=== PATIENT | female | born 1945 | race Caucasian/White ===

== ENCOUNTER 2024-06-02 12:23 | Outpatient (CLI) | payer MEDICARE, SELFPAY ==
--- NOTE | 2024-06-02 12:43 | PETR_ITS ---
PROCEDURE INFORMATION: Exam: PET/CT Skull Base to Mid-thigh Exam date and time: 06/02/2024 1:37 PM Age: 79 years old Clinical indication: Abnormal findings; Lytic lesion of bone on xray LABS AND CLINICAL REPORTS: Glucose: 111 mg/dl Treatment strategy for malignancy (PET staging): Initial Staging (PI) TECHNIQUE: Imaging protocol: Following at least four-hour fasting and following the injection of radiopharmaceutical, low dose CT images were obtained. Then, PET images were obtained. Attenuation corrected images were constructed using the CT scan. Fused images of PET and CT were reviewed. The standardized uptake values (SUV) reported below are maximum values within a region of interest, expressed in gm/ml. Exam includes orbital meatal line to mid-thigh. Radiopharmaceutical: 10.52 mCi F-18 FDG (Fluorodeoxyglucose), IV. Time of imaging post radiopharmaceutical administration: 48 minutes Injection site: Right antecubital COMPARISON: No relevant prior studies available. FINDINGS: Brain: Visualized brain has normal physiologic uptake. Pharynx: No abnormal uptake. Larynx: No abnormal uptake. Thyroid: Enlarged right thyroid gland with heterogeneous nodule measuring up to 4 cm showing low-level FDG uptake with SUV max 3.8. Lungs, pleura and trachea: Dependent and basilar predominant subpleural reticulation may represent atelectasis or fibrotic change. Mild emphysematous change. 6 mm right lower lobe superior segment nodule adjacent to subpleural reticulation on axial image 254 of series 202 with SUV max 4.5. Right lower lobe calcified granuloma. Heart: Normal physiologic uptake. Coronary arteries: Moderate coronary artery calcification. Mediastinal space: No abnormal uptake. Liver: No abnormal uptake. Photopenic fluid density simple left hepatic cyst and subcentimeter hypodensity too small to characterize. Right lobe calcified granuloma. Gallbladder and biliary ducts: No abnormal uptake. Cholelithiasis. Pancreas: No abnormal uptake. Spleen: No abnormal uptake. Calcified granuloma. Adrenal glands: No abnormal uptake. Kidneys and ureters: Normal physiologic uptake. Photopenic fluid density right renal cysts. Bilateral nonobstructive nephrolithiasis. Stomach and bowel: No abnormal uptake. Colonic diverticulosis without findings of diverticulitis. Vasculature: No abnormal uptake. Moderate systemic atherosclerotic calcification without aortic aneurysm. Lymph nodes: Calcified right hilar lymph nodes in keeping with sequela of old granulomatous disease. Focal right hilar FDG uptake shows SUV max of 6.0 on axial image 242 of series 202 that appears to be associated with calcific density and may arise from lymph node or possibly pulmonary artery. Skeleton: Medial right clavicle destruction with surrounding FDG avid mass measuring 6.0 x 5.1 cm on axial image 266 of series 202 shows SUV max 46.2. FDG uptake extends laterally along the right clavicle to the mid/distal portion. Degenerative changes along the axial and proximal appendicular skeletal system. Soft tissues: Superficial left breast soft tissue density nodule measuring 8 mm on axial image 212 of series 202 shows SUV max 3.9. PET/PET skull to thigh INIT [id number] IMPRESSION: 1. FDG avid destructive medial right clavicle mass highly suspicious for malignancy. Abnormal FDG uptake extends laterally along the right clavicular shaft. 2. 8 mm superficial left breast nodule with FDG uptake. Recommend diagnostic mammogram/ultrasound. 3. Focal right hilar FDG uptake is likely associated with partially calcified lymph node, difficult to entirely exclude pulmonary artery. Recommend correlation with chest CTA. 4. 6 mm posterior right lower lobe superior segment nodule may be inflammatory or neoplastic given SUV max 4.5. This is adjacent to mild subpleural reticulation and paraseptal emphysematous change. 5. Enlarged right thyroid gland with mildly metabolic 4 cm right thyroid nodule. Recommend nonemergent thyroid ultrasound. 6. Additional chronic and incidental findings as above, to include atherosclerosis, colonic diverticulosis, cholelithiasis, and bilateral nonobstructive nephrolithiasis.
== END 2024-06-02 12:24 | disposition home or self-care (01) ==
PROVIDERS: Visit Provider Family Medicine
DX: M89.9 Disorder of bone, unspecified (principal); E04.1 Nontoxic single thyroid nodule; R91.1 Solitary pulmonary nodule; I25.84 Coronary atherosclerosis due to calcified coronary lesion; Q44.6 Cystic disease of liver; K75.3 Granulomatous hepatitis, not elsewhere classified; K80.20 Calculus of gallbladder without cholecystitis without obstruction; D73.89 Other diseases of spleen; I70.0 Atherosclerosis of aorta; R93.89 Abnormal findings on diagnostic imaging of other specified body structures; N63.20 Unspecified lump in the left breast, unspecified quadrant
CPT/HCPCS: 78815; A9552

== ENCOUNTER 2024-07-25 11:02 | Oncology outpatient (recurring) (ONCR) | payer MEDICARE, SELFPAY ==
--- NOTE | 2024-07-04 08:45 | N.ONRAD NP_ITS ---
Radiation Oncology New Patient Visit Patient: Anselmo Koch MR#: [id number] : 1945 Age: 79 Sex: Female Dictated by: Dr. Bernadette Guzman Date of Service: 07/03/2024 Referring Physician(s) : Dr. Vernon Diagnosis: Carcinoma of undetermined primary Radiotherapy to date: Summary > No prior radiation therapy. Chief Complaint / History of Present Illness: Patient is 79-year-old lady who said she initially noted a knot over the clavicle on the left side but that it migrated to the right. Apparently is increased in size substantially over the last several months. She has had a biopsy done on 06/16/2024 which just showed that it was carcinoma and additional studies are currently pending. On her PET scan she has a 8 mm mass in the left breast and a nodule in the lung which is partially calcified as well as a 4 cm mass in the thyroid. She is here today to discuss palliative radiation to the clavicular mass which appears to originate in the bone and expanded outward. She currently has pain in the clavicular area. But it does radiate across her shoulder and up the back of her neck and head. She also feels like she cannot use her arm as well either. She declares she is now left-handed instead of right-handed. Current Medications: carvedilol, hydroxyzine, spironolactpne, torsemide Allergies: No known allergies Medical History: No history of collagen vascular disease. No previous radiation therapy. CHF, kidney stones, mitral valve prolapse, prior smoking history and alcohol history Surgical History: History of a cyst removed from the right breast and a mitral valve replaced Family History: Noncontributory Social History: She currently lives alone. Her son does live close current Complaints / Review of Systems: . Her main complaints today have to do with the pain in the clavicular area which radiates up to her skull as well as down to her arm Vital Signs: Performed on 07/03/2024 3:55 PM BMI - 24.856 kg/m2 (high), Height - 66 in, Weight - 154 lbs, Temperature - 98.7 f, Pulse - 87 /min, Respiration - 17 /min, O2 Sat - 97 %, Pain - 4, Fatigue - 0 and BP - 127/ 68 mm(hg). Physical Exam: General: Patient is in no apparent distress. She is companied by her son. HEENT: Normocephalic atraumatic. Pupils are equal, sclera clear, extraocular muscles intact Neck: She has an obvious mass over the right clavicle. It is approximately 12 x 8 cm in size. Is warm to touch and erythematous as well. Pulmonary: Respiratory rate is regular nonlabored Cardiovascular: Regular rate and rhythm Abdomen: Mildly protuberant android pattern Extremities: She does not appear to have any lymphedema in the upper extremities Neurological: Alert and orient x 3. 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 We reviewed the role of radiation in any type of carcinoma. We discussed the role of radiation and bone metastasis. I reviewed with her the simulation process and the daily treatment regiment. We discussed the risks and side effects both acute and long-term. We talked about the possible etiology. She declares that she smoke like a chimney for many years. We talked about how more than likely is going to be either lung origin or breast origin. This mass showed up on the PET scan most likely due to the soft tissue component. We will go ahead and order a bone scan to further evaluate the rest of her skeletal system as bone lesions sometimes do not show up on PET scans. She had no additional questions. She will return based on her son scheduled to undergo simulation and will begin her treatments hopefully this week pending her insurance approval. Initial plan is for 2-week course of treatment. If additional therapy is needed to continue to strengthen mass we can do that subsequently Signed by: 07/04/2024 8:44:10 AM <<Signature on File>> Time spent with patient:45 CPT Code: CPT Code:
--- NOTE | 2024-07-18 11:40 | ONCRAD TMN_ITS ---
Radiation Oncology Weekly Treatment Management Patient: Anselmo Koch MR#: [id number] : 1945 Attending Physician: Dr. Bernadette Guzman Date of Service: 07/18/2024 Fractions: 3 out of 10 Referring Physician(s) : Diagnosis: C79.51 - Secondary malignant neoplasm of bone, Diagnosed 07/04/2024 (Active) Radiotherapy to date: Course: R clavicle, Treatment Site: RT [id number], Ref. ID: [id number], Energy: 15X/6X, Dose/Fx (cGy): 300, #Fx: 3 / 10, Dose Correction (cGy): 0, Total Dose Delivered (cGy): 900, Start Date: 07/07/2024, Elapsed Days: 11 Reason for visit: The patient is being seen today as part of their regularly scheduled weekly on treatment visits to assess for acute toxicities from radiotherapy. Review of Systems: No new complaints. Vital Signs: Performed on 07/18/2024 11:23 AM BMI - 24.63 kg/m2 (high), Height - 66 in, Weight - 152.6 lbs, Temperature - 97.7 f, Pulse - 73 /min, Respiration - 16 /min, O2 Sat - 98 %, Pain - 0, Fatigue - 0 and BP - 129/ 64 mm(hg)(/low). Physical Exam: On exam the mass appears to be slightly smaller. It is less erythematous. Imaging: Radiation therapy imaging related to accurate target localization (i.e. KV, MV and CBCT) was reviewed. Appropriate changes, if any, were made to ensure treatment accuracy. Plan: Will continue with her treatments as planned Signed by: Dr. Bernadette Guzman 07/18/2024 11:39:47 AM
--- NOTE | 2024-07-25 11:42 | ONCRAD TMN_ITS ---
Radiation Oncology Weekly Treatment Management Patient: Zee Parisi MR#: [id number] : 1945> Attending Physician: Dr. Bernadette Guzman Date of Service: 07/25/2024 Fractions: 7 out of 10 Referring Physician(s) : Diagnosis: C79.51 - Secondary malignant neoplasm of bone, Diagnosed 07/04/2024 (Active) Radiotherapy to date: Course: R clavicle, Treatment Site: RT [id number], Ref. ID: [id number], Energy: 15X/6X, Dose/Fx (cGy): 300, #Fx: 7 / 10, Dose Correction (cGy): 0, Total Dose Delivered (cGy): 2,100, Start Date: 07/07/2024, Elapsed Days: 18 Reason for visit: The patient is being seen today as part of their regularly scheduled weekly on treatment visits to assess for acute toxicities from radiotherapy. Review of Systems: Patient feels like the pain has decreased substantially Vital Signs: Performed on 07/25/2024 11:15 AM BMI - 25.018 kg/m2 (high), Height - 66 in, Weight - 155 lbs, Temperature - 97.1 f, Pulse - 71 /min, Respiration - 18 /min, O2 Sat - 97 %, Pain - 0, Fatigue - 0 and BP - 102/ 67 mm(hg). Physical Exam: On exam the mass is flattened out quite nicely. The skin is dry and somewhat pruritic over the top. Imaging: Radiation therapy imaging related to accurate target localization (i.e. KV, MV and CBCT) was reviewed. Appropriate changes, if any, were made to ensure treatment accuracy. Plan: I have asked her to use some cortisone cream on this area. Will otherwise continue with her treatments as planned Signed by: Dr. Bernadette Guzman 07/25/2024 11:41:57 AM
== END 2024-07-25 23:59 | disposition home or self-care (01) ==
PROVIDERS: Visit Provider Radiology Radiation Oncology
DX: Z51.0 Encounter for antineoplastic radiation therapy (principal); C79.51 Secondary malignant neoplasm of bone; C80.1 Malignant (primary) neoplasm, unspecified
CPT/HCPCS: 77290; 77295; 77300; 77334; 77386; 77387; 77412; 99024; 99205; 99214

== ENCOUNTER 2024-07-27 09:52 | Inpatient (IN) | payer MEDICARE, SELFPAY ==
[2024-07-27] VITALS (15 sets, daily range): BP systolic 99–148; BP diastolic 35–74; PULSE 43–86; RESP 12–21; TEMP 36.5–36.8; O2SAT 94–99
--- NOTE | 2024-07-27 09:56 | CT_ITS ---
WS: [id number] CT CERVICAL TRAUMA TECHNIQUE: Noncontrast CT of the cervical spine with coronal and sagittal reformatted images. CLINICAL INFORMATION: trauma COMPARISON: None. DLP: 1381.[address] scans at [facility] use at least one of these dose optimization techniques: automated e xposure control; mA and/or kV adjustment per patient size (includes targeted exams where dose is matc hed to clinical indication); or iterative reconstruction. FINDINGS: Straightening of the normal cervical lordosis. Mild cervical curve. Moderate spondylitic changes. Dis c osteophyte complexes at C5-C6 and C6-C7. Slight anterolisthesis C4 on C5. Normal craniocervical stefano ction. Normal C1-C2 articulation. Dens is normal in appearance. Normal occipital condyles. No high-gr bertin spinal canal narrowing. Normal C1 ring. No evidence of acute fracture or dislocation. Partially visualized large RIGHT thyroid goiter. Partially visualized soft tissue mass at the RIGHT c lavicle previously described on the PET/CT Mastoids air cells are well aerated. CT/CT cervical spin wo con* [id number] IMPRESSION: 1. No evidence of acute fracture or dislocation. 2. Partially visualized large RIGHT thyroid goiter with RIGHT to LEFT mass eff ect on the trachea. This could be followed up with ultrasound thyroid. This is unchanged since the recent PET/CT 06/02/2024
--- NOTE | 2024-07-27 09:56 | CT_ITS ---
WS: [id number] CT HEAD TECHNIQUE: Noncontrast CT of the head obtained from the skullbase to the vertex. CLINICAL INFORMATION: trauma COMPARISON: None. DLP: 1381.[address] scans at [facility] use at least one of these dose optimization techniques: automated e xposure control; mA and/or kV adjustment per patient size (includes targeted exams where dose is matc hed to clinical indication); or iterative reconstruction. FINDINGS: No evidence of intracranial hemorrhage or mass effect. Ventricular system and basal cisterns are hutchinson nt. Moderate small vessel changes with moderate parenchymal volume loss worse in the frontal lobes.. Chronic lacunar infarcts in the LEFT basal ganglia. Vascular calcification. Arachnoid cyst LEFT middl e cranial fossa with bony hyperostosis.. Opacification of the posterior ethmoid air cells and sphenoid sinuses. Soft tissue edema LEFT parieta l scalp. Normal underlying bony calvarium. CT/CT head wo con* [id number] IMPRESSION: 1. No evidence of intracranial hemorrhage or mass effect. 2. Moderate small vessel changes. Moderate parenchymal volume loss worse in th e frontal lobes. 3. Arachnoid cyst LEFT middle cranial fossa. 4. Sphenoid and posterior ethmoid sinusitis with inspissated secretions. 5. No acute intracranial findings.
--- NOTE | 2024-07-27 10:14 | ECG_ITS ---
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 Measurements Intervals [place] Rate: 62 P: 0 PA: 0 QRS: -26 QRSD: 89 T: 28 QT: 412 QTc: 421 Interpretive Statements SINUS RHYTHM LOW QRS VOLTAGE IN PRECORDIAL LEADS [QRS DEFLECTION < 1.0 mV IN CHEST LEADS] POSSIBLE ANTERIOR MYOCARDIAL INFARCTION , PROBABLY OLD [30 ms Q WAVE IN V3/V4, OR R < 0.2 mV IN V4] INFERIOR MYOCARDIAL INFARCTION , PROBABLY OLD [40+ ms Q WAVE AND/OR ST/T ABNORMALITY IN II/aVF] No previous ECG available for comparison Electronically Signed On 07-27-2024 12:20:48 CHIEF GAUGER by Flako Holman M.D. [email or web address]
--- NOTE | 2024-07-27 10:34 | ED_ITS ---
HPI - Head Injury 2 General: Chief complaint: Head Injury Stated complaint: rapid Time Seen by Provider: 07/27/24 09:53 History of Present Illness: 79-year-old female with a history of a p haryngeal cancer was at the oncology center checking in to be seen got lightheaded dizzy and fell backwards and hit her head she did have loss consciousness she has been vomiting since she has had other episodes where she nearly passed out and has had episodes of vomiting in the past she states this is much more intense. She is not on any anticoagulants. She denies any other injury or any other pain no abdominal or chest pain. Denies neck pain. Associated symptoms: Deny neck pain Related Data Home Medications Medication Instructions Recorded Confirmed carvedilol 25 mg tablet 25 mg PO BID 07/03/24 07/27/24 hydroxyzine HCl 10 mg tablet 10 mg PO TID PRN Anxiety 07/03/24 07/27/24 spironolactone 25 mg tablet 25 mg PO DAILY 07/03/24 07/27/24 torsemide 20 mg tablet 20 mg PO DAILY PRN Edema 07/03/24 07/27/24 Previous Rx's Medication Instructions Recorded lidocaine-prilocaine 2.5 %-2.5 % 1 applic topical .COMPLEX #30 grams 07/03/24 topical cream alectinib 150 mg capsule 600 mg (4 x 150 mg) PO BID #60 caps 07/24/24 Allergies Allergy/AdvReac Type Severity Reaction Status Date / Time No Known Allergies Allergy Verified 07/24/24 13:41 Review of Systems 2 Const: Denies: fever(s) or chills Card: Denies: chest pain Resp: Denies: dyspnea GI: Denies: abdominal pain : Denies: dysuria, urinary frequency or urinary urgency Musc: Denies: neck pain or back pain Skin/Breast: Denies: rash PFSH ED 2 PFSH: Social History Smoking and tobacco/nicotine status: former use of tobacco/nicotine Physical Exam 2 Const: GENERAL APPEARANCE: cooperative ORIENTATION/CONSCIOUSNESS: Yes awake, Yes oriented to person, Yes oriented to place and Yes oriented to time HENMT: COMMON NORMALS: normocephalic, atraumatic and hearing grossly normal bilaterally HEAD & SCALP: normocephalic and atraumatic Resp: COMMON NORMALS: normal respiratory effort, No retractions, No use of accessory muscles and clear to auscultation bilaterally AUSCULTATION: clear to auscultation bilaterally Cardio: COMMON NORMALS: regular rate, regular rhythm and No murmurs present (Cardio) RATE: regular rate RHYTHM: regular rhythm GI: COMMON NORMALS: Soft to palpation and No hepatosplenomegaly present A USCULTATION: Yes normoactive bowel sounds PALPATION: Yes Soft to palpation, No Tenderness to palpation present (GI), No Guarding due to palpation present (GI) and Yes No hepatosplenomegaly present Extremity: COMMON NORMALS: normal to inspection, capillary refill normal, no clubbing, cyanosis or edema, no calf tenderness and no pedal edema Neuro: SENSORIUM/ORIENTATION: Yes oriented to person, Yes oriented to place and Yes oriented to time Skin: COMMON NORMALS: no rashes or lesions noted GENERAL SKIN EXAM: no rashes or lesions noted Course 2 Vital Signs: Vital signs: Vital Signs Temperature 98.2 F 07/27/24 10:16 Pulse Rate 56 L 07/27/24 11:50 Respiratory Rate 18 07/27/24 10:16 Blood Pressure 148/58 07/27/24 11:50 Pulse Oximetry 94 07/27/24 11:50 Oxygen Delivery Me thod Room Air 07/27/24 10:16 MDM - Head Injury Medcial Decision Making Patient initially very nauseous she denied chest pain on arrival. However serial cardiac enzymes showed a positive delta. EKG does not show any acute changes she has no history of coronary artery disease. She had very lightheaded and dizzy when he tried to do orthostatics. Will go ahead and admit it is discussed with cardiology as well as hospitalist patient started on heparin. Medical Records I reviewed the patient's medical records. Lab Data I reviewed the patient's lab results. 07/27/24 10:29 07/27/24 10:29 Radiology Impressions Cervical Spine CT 07/27/24 09:56 IMPRESSION: 1. No evidence of acute fracture or dislocation. 2. Partially visualized large RIGHT thyroid goiter with RIGHT to LEFT mass effect on the trachea. This could be followed up with ultrasound thyroid. This is unchanged since the recent PET/CT 06/02/[address] 07/27/24 09:56 IMPRESSION: 1. No evidence of intracranial hemorrhage or mass effect. 2. Moderate small vessel changes. Moderate parenchymal volume loss worse in the frontal lobes. 3. Arachnoid cyst LEFT middle cranial fossa. 4. Sphenoid and posterior ethmoid sinusitis with inspissated secretions. 5. No acute intracranial findings. Laboratory Results WBC 6.20 10^3/uL (3.29-11.43) 07/27/24 10:29 RBC 4.37 10^6/uL (3.85-5.65) 07/27/24 10:29 Hgb 12.30 g/dL (11.27-16.99) 07/27/24 10:29 Hct 40.3 % (36-47) 07/27/24 10:29 MCV 92.2 fl (85-98) 07/27/24 10:29 MCH 28.1 pg (27-33) 07/27/24 10:29 MCHC 30.5 g/dL (30-55) 07/27/24 10:29 RDW 13.4 % (12.1-15.1) 07/27/24 10:29 Plt Count 250 10^3/cmm (157-399) 07/27/24 10:29 MPV 9.5 fL (7.4-10.4) 07/27/24 10:29 Neut % (Auto) 71.6 % 07/27/24 10:29 Lymph % (Auto) 11.3 % 07/27/24 10:29 [place] % (Auto) 11.3 % 07/27/24 10:29 Eos % (Auto) 3.5 % 07/27/24 10:29 Baso % (Auto) 1.8 % 07/27/24 10:29 Neut # (Auto) 4.44 10^3/uL (1.8-7.7) 07/27/24 10:29 Lymph # (Auto) 0.7 10^3/uL (0.8-4.8) L 07/27/24 10:29 [place] # (Auto) 0.7 10^3/uL (0.2-0.9) 07/27/24 10:29 Eos # (Auto) 0.2 10^3/uL (0.0-0.8) 07/27/24 10:29 Baso # (Auto) 0.1 10^3/uL (0.0-0.1) 07/27/24 10:29 Nucleated RBC % (auto) 0 % 07/27/24 10: Nucleated RBCs # 0.0 /100WBC 07/27/24 10:29 Sodium 138 mmol/L (136-145) 07/27/24 10:29 Potassium 4.1 mmol/L (3.5-5.1) 07/27/24 10:29 Chloride 108 mmol/L (98-107) H 07/27/24 10:29 Carbon Dioxide 21 mmol/L (22-29) L 07/27/24 10:29 Anion Gap 13.1 (5-19) 07/27/24 10:29 BUN 16 mg/dL (8-23) 07/27/24 10:29 Creatinine 0.9 mg/dL (0.5-0.9) 07/27/24 10: GFR Calculation Not Reportable 07/27/24 10:29 Glucose 142 mg/dL (65-115) H 07/27/24 10:29 Calculated Osmolality 290 mOsm/kg (285-295) 07/27/24 10:29 Calcium 8.9 mg/dL (8.5-10.5) 07/27/24 10:29 Total Bilirubin 0.4 mg/dL (0.15-1.2) 07/27/24 10:29 AST 12 U/L (0-32) 07/27/24 10:29 ALT < 5 U/L (0-33) 07/27/24 10:29 Alkaline Phosphatase 95 U/L (35-105) 07/27/24 10:29 Troponin T Baseline 23 ng/L (0-10) H 07/27/24 10:29 Troponin T 120 Minute 38.83 ng/L (0-10) H 07/27/24 13:13 Delta Troponin T 15.83 ABS# (0-10) H* 07/27/24 13:13 Total Protein 6.2 g/dL (6.6-8.7) L 07/27/24 10:29 Albumin 3.3 g/dL (3.5-5.2) L 07/27/24 10:29 Globulin 2.9 g/dL (1.3-4.6) 07/27/24 10:29 All radiology interpretation(s) finalized by discharge Discharge Plan Discharge Patient Disposition: Admitted As Inpatient Admit Provider: Daylin Hagen Clinical Impression: Non-ST elevation [place] (NSTEMI), Lung cancer metastatic to bone, Syncope Condition: Stable Coding Level of Care Code ED Field Service Coordinator for Niranjan Duran
[2024-07-27 10:41] LABS: Basophils # 0.1 10^3/uL (0.0-0.1); Basophils % 1.8 %; Eosinophils # 0.2 10^3/uL (0.0-0.8); Eosinophils % 3.5 %; Hematocrit 40.3 % (36-47); Lymphocytes # 0.7 10^3/uL (0.8-4.8); Lymphocytes % 11.3 %; Mean Corpuscular HGB Conc 30.5 g/dL (30-55); Mean Corpuscular Hemoglobin 28.1 pg (27-33); Mean Corpuscular Volume 92.2 fl (85-98); Mean Platelet Volume 9.5 fL (7.4-10.4); Monocytes # 0.7 10^3/uL (0.2-0.9); Monocytes % 11.3 %; Neutrophils # 4.44 10^3/uL (1.8-7.7); Neutrophils % 71.6 %; Nucleated Red Blood Cells % 0 %; Platelet Count 250 10^3/cmm (157-399); Red Blood Count 4.37 10^6/uL (3.85-5.65); Red Cell Distribution Width 13.4 % (12.1-15.1)
[2024-07-27] MEDS: ondansetron 2 mg/ML SDV 2 mL 8 MG IVP (10:53)
[2024-07-27 10:58] LABS: Alanine Aminotransferase < 5 U/L (0-33); Albumin Level 3.3 g/dL (3.5-5.2); Alkaline Phosphatase 95 U/L (35-105); Anion Gap 13.1 (5-19); Aspartate Amino Transferase 12 U/L (0-32); Blood Urea Nitrogen 16 mg/dL (8-23); Calcium 8.9 mg/dL (8.5-10.5); Carbon Dioxide 21 mmol/L (22-29); Chloride 108 mmol/L (98-107); Globulin 2.9 g/dL (1.3-4.6); Glucose 142 mg/dL (65-115); Osmolality Calculated 290 mOsm/kg (285-295); Potassium 4.1 mmol/L (3.5-5.1); Sodium 138 mmol/L (136-145); Total Bilirubin 0.4 mg/dL (0.15-1.2); Total Protein 6.2 g/dL (6.6-8.7)
[2024-07-27 11:57] LABS: Troponin(5th) Baseline 23 ng/L (0-10)
[2024-07-27] MEDS: sodium chloride 0.9% 1,000 ML 999 ML IV (12:12)
--- NOTE | 2024-07-27 13:23 | ECG_ITS ---
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 Measurements Intervals [place] Rate: 54 P: 115 AL: 207 QRS: -32 QRSD: 82 T: 20 QT: 428 QTc: 409 Interpretive Statements SINUS BRADYCARDIA WITH SINUS ARRHYTHMIA LOW QRS VOLTAGE IN PRECORDIAL LEADS [QRS DEFLECTION < 1.0 mV IN CHEST LEADS] POSSIBLE ANTERIOR MYOCARDIAL INFARCTION , PROBABLY OLD [30 ms Q WAVE IN V3/V4, OR R < 0.2 mV IN V4] INFERIOR MYOCARDIAL INFARCTION , PROBABLY OLD [40+ ms Q WAVE AND/OR ST/T ABNORMALITY IN II/aVF] Compared to ECG 07/27/2024 10:14:50 Sinus rhythm no longer present Myocardial infarct finding still present Electronically Signed On 07-27-2024 16:09:21 WRIST CLOSER by Flako Holman M.D. [email or web address]
[2024-07-27 13:40] LABS: Troponin 5 2HR 38.83 ng/L (0-10)
[2024-07-27 13:46] LABS: Troponin 5 2HR Delta 15.83 ABS# (0-10)
--- NOTE | 2024-07-27 14:43 | PC.NURSE ---
Dr. Steiner wanted new [employer] vitals. This tech completed task. Laying blood pressure- 97/44 Sitting blood pressure- 108/51 Standing blood pressure- 104/59 Laying pulse- 75 Sitting pulse- 81 Standing pulse- 86
--- NOTE | 2024-07-27 14:44 | P.HP_ITS ---
Providers/Chief Complaint 2 Admitting Physician: Daylin Hagen MD Chief Complaint: rapid History of Present Illness Anselmo Koch is a 79 year old female With past medical history of hypertension, right clavicular mass with biopsy-proven adenocarcinoma primary unknown but likely to be nonsmall cell lung cancer who has been following up with oncology and receiving radiation treatments. Patient went for her regular radiation treatment and has been standing at the desk speaking to the medical records receptionist she had a syncopal episode and found herself on the floor. There were no warning signs prior to the syncope. Did not experience any lightheadedness nausea vomiting or flashing lights. Son accompanies her today. Son reports that patient has had a history of EF 20% quite a few years ago and follows with a youth development professional in [place] however never had a coronary angiogram done for unknown reasons. Patient denies nausea vomiting diarrhea chest pain shortness of breath or any other symptoms at this time. She was brought to the ER as a rapid response for further evaluation. Blood pressure 148/58, respirate 18, pulse 56, temperature 98.2 saturating 94% on room air. Orthostatic vitals were attempted however unable to do them since she was lightheaded and dizzy upon presentation to ER. Troponins elevated with delta of 15.8. Started on NSTEMI protocol. Cardiology consulted from the ER. Hospitalist asked to admit the patient. Medications/Allergies Home Medications Medication Instructions Recorded Confirmed Last Taken Type carvedilol 25 mg tablet 25 mg PO BID 07/03/24 07/27/24 07/26/24 History hydroxyzine HCl 10 mg tablet 10 mg PO TID PRN Anxiety 07/03/24 07/27/24 Unknown History lidocaine-prilocaine 2.5 %-2.5 % 1 applic topical .COMPLEX #30 grams 07/03/24 07/27/24 Unknown Rx topical cream spironolactone 25 mg tablet 25 mg PO DAILY 07/03/24 07/27/24 07/26/24 History torsemide 20 mg tablet 20 mg PO DAILY PRN Edema 07/03/24 07/27/24 Unknown History alectinib 150 mg capsule 600 mg (4 x 150 mg) PO BID #60 caps 07/24/24 07/27/24 Unknown Rx aspirin 81 mg capsule 81 mg PO DAILY 07/27/24 07/27/24 07/26/24 History Allergies Allergy/AdvReac Type Severity Reaction Status Date / Time No Known Allergies Allergy Verified 07/24/24 13:41 PFSH Acute 2 PFSH: Social History Smoking and tobacco/nicotine status: former use of tobacco/nicotine Vitals/I&O/Wt Last Vital Signs Temp 98.2 F 07/27/24 10:16 Pulse 56 L 07/27/24 11:50 Resp 18 07/27/24 10:16 BP 148/58 07/27/24 11:50 Pulse Ox 94 07/27/24 11:50 O2 Del Method Room Air 07/27/24 10:16 Weight last 48 hrs Weight 70.307 kg Physical Exam 2 Narrative: General: Alert oriented x3, patient seen laying in bed appearing comfortable HEENT: Normocephalic, atraumatic, EOMI, Cardio: Regular rate rhythm, normal S1-S2, Respiratory: Good bilateral air entry, no wheezes no rhonchi appreciated GI: Abdomen soft, nontender, nondistended, bowel sounds + Behavior: Appropriate and cooperative Extremities: trace edema b/l Data 07/28/24 09:50 07/28/24 09:50 A&P Assessment and plan (1) Benign hypertension: (2) Non-ST elevation AL (NSTEMI): (3) Elevated troponin: (4) Abnormal EKG: (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: (6) Cancer with unknown primary site: (7) Syncope: Qualifiers: Syncope type: unspecified Qualified Code(s): R55 - Syncope and collapse Plan #NSTEMI #HTN #Non small cell cancer/adenocarcinoma/right clavicle mass #Syncopal episode - place on telemetry - check echo - request records from [facility] cardiology - [facility] at 6 hours positive 15.8 - place on heparin drip - place on aspirin, plavix, atorvastatin - avoid BB at this time - hold home antihypertensive at this time - cardiology consult - f/u with oncology [place] full code dvt ppx: heparin ggt Attestations 2 Medical Necessity Statement*: NSTEMI Diagnoses Benign hypertension I10 Non-ST elevation AL (NSTEMI) I21.4 Elevated troponin R79.89 Abnormal EKG R94.31 Lung cancer metastatic to bone C34.90; C79.51 Cancer with unknown primary site C80.1 Syncope, unspecified syncope type R55 Syncope type: unspecified
--- NOTE | 2024-07-27 14:49 | USCV_ITS ---
Anselmo Koch Age: 79 Gender: F : 1945 Exam Date: 07/27/2024 15:17 Ordering Phys: Daylin Hagen MD Technologist: LOU Exam Location[place] [facility] [place]: NSTEMI BP: 112 / 35 HR: 57 Rhythm: Sinus Technical Quality: Adequate MEASUREMENTS (Male / Female) Normal Values 2D ECHO LV Diastolic Diameter PLAX 5.2 cm 4.2 - 5.9 / 3.9 - 5.3 cm IVS Diastolic Thickness 1.2 cm 0.6 - 1.0 / 0.6 - 0.9 cm IVS Systolic Thickness 1.8 cm LVPW Diastolic Thickness 1.8 cm 0.6 - 1.0 / 0.6 - 0.9 cm LVPW Systolic Thickness 2.7 cm LVOT Diameter 2.0 cm LV Ejection Fraction 2D Teich 61.5 % LV Ejection Fraction MOD 4C 60.5 % LV Ejection Fraction MOD 2C 54.5 % LV Ejection Fraction 2C AL 54.6 % LA Diameter 2.9 cm RA Systolic Volume 4C AL 10.0 ml RA Systolic Volume 4C MOD 9.6 ml LA Sys Volume AL 32.7 cm cubed LA Sys Volume Index AL 18.0 cm cubed/m squared Aorta at Sinotubular Diameter 2.3 cm M-MODE LA Ao Ratio MM 1.1 AV Cusp Separation MM 1.9 cm DOPPLER AV Peak Velocity 169.0 cm/s LVOT Peak Velocity 103.0 cm/s AV Area Cont Eq vti 2.3 cm squared AV Area Cont Eq pk 1.9 cm squared MV Peak Velocity 133.0 cm/s MV Area PHT 1.5 cm squared Mitral E to A Ratio 0.7 TR Peak Velocity 164.0 cm/s TR Peak Gradient 10.8 mmHg TR Mean Velocity 136.0 cm/s TR Mean Gradient 7.9 mmHg TR Velocity Time Integral 51.5 cm TV Peak E Velocity 67.0 cm/s PV Peak Velocity 80.0 cm/s RV Ejection Time 0.3 s FINDINGS Left Ventricle Normal left ventricular size with a borderline low ejection fraction of 50 to 55%.Mild to moderate left ventricular hypertrophy. Right Ventricle The right ventricle is normal in size and function. Right Atrium The right atrium is normal in size. Left Atrium Mildly increased left atrial size. Mitral Valve Mild mitral annular calcification. Aortic Valve Trace aortic valve regurgitation. Thickened aortic valve. Tricuspid Valve Trace tricuspid valve regurgitation. Pulmonic Valve No gross abnormalities noted Pericardium Normal pericardium without effusion. Aorta Normal ascending aorta dimension. IVC Inferior vena cava not visualized. CONCLUSIONS Normal left ventricular size with a borderline low ejection fraction of 50 to 55%.Mild to moderate left ventricular hypertrophy. Mildly increased left atrial size. Mild mitral annular calcification. Thickened aortic valve. Trace aortic valve regurgitation. Trace tricuspid valve regurgitation. There is no pericardial effusion. No similar previous studies are available for comparison Dr Katlyn Pack MD [facility] (Electronically Signed) Final Date: 27 July 2024 23:01 S
[2024-07-27] MEDS: heparin 5,000 unit/mL INJ 1 mL IVP (15:02)
[2024-07-27] MEDS: heparin drip 25,000 UNIT/500 ML PREMIX 20 UNIT IV (15:04)
[2024-07-27] MEDS: aspirin 81 mg Chew Tablet 324 MG PO (15:05)
[2024-07-27 15:53] LABS: NT Pro B Type Natriuretic Pept 275 pg/mL (0-450); Procalcitonin 0.06 ng/mL (0-0.5); Thyroid Stimulating Hormone 0.44 uIU/mL (0.27-4.20)
[2024-07-27 15:55] LABS: Estmated Average Glucose 114; Hemoglobin A1C 5.6 % (4.0-6.0)
[2024-07-27 16:05] LABS: Chol HDL Ratio 5.03 mg/dL (0.0-4.40); Cholesterol 191 mg/dL (0-200); HDL Cholesterol 38 mg/dL (60-100); LDL Cholesterol Calculated 124 mg/dL (50-129); LDL HDL Ratio 3.26 RATIO (0.00-3.22); Triglycerides 146 mg/dL (0-150); VLDL Cholestrol Calculation 29 mg/dL (0-30)
--- NOTE | 2024-07-27 16:19 | P.CONIM_ITS ---
Providers/Reason For Consult 2 Consulting Physician/Specialty*: RODNEY Pack MD /cardiology Reason for Consult*: Patient with syncope and elevated troponin T Requesting Physician: Dr. Hagen Attending Physician: Dalyin Hagen MD History of Present Illness History of Present Illness Anselmo Koch is a 79 year old female who is admitted to the hospital through the emergency room where she presented with an episode of syncope. Patient was found to have elevated troponin T. This patient apparently has a history of hypertension and cardiomyopathy. According to the son, she had LV ejection fraction around 20% many years ago. She was evaluated by cardiology in [place] at that time. If she refused to have an angiogram. Her LV ejection fraction gradually got improved. Recently she had a PET scan and was found to have significant coronary calcification and was advised for further cardiac workup. Then again the patient did not want to go through any angiogram or invasive procedures. She apparently was recently was found to have a mass in the right supraclavicular region. It is diagnosed as possible small cell CA from the lung. She is currently undergoing radiation treatment. She was at the [facility] center medical receptionist biller counter -, talking to the medical receptionist biller. All of a sudden, she passed out. She was brought to the emergency room. Her troponin SHEELA was found to be elevated with a delta of 15.83 at 2 hours. She denies any chest pain. Patient apparently became very forgetful recently and he is not able to recall many of the events of the past. The information obtained from her son, medical records and from the medical staff. Review of Systems 2 Narrative: CONSTITUTIONAL: No fever or chills. EYES: No blurring of vision or other visual disturbances lately. ENT: No hoarseness of voice, auditory disturbances or sore throat. CARDIOVASCULAR: As mentioned above. RESPIRATORY: Possible metastatic CA as mentioned above GASTROINTESTINAL: No hematemesis or melena. GENITOURINARY: No dysuria or hematuria. INTEGUMENTARY: No skin rashes or history of skin cancer. NEURO: Significant loss of memory in the recent past as per her son PSYCHIATRIC: No history of psychosis or major depression. HEMATOLOGIC: No bleeding disorders or significant anemia. ENDOCRINE: No history of polyuria or polydipsia. MUSCULOSKELETAL: No recent joint pain or swelling. ALLERGY/IMMUNOLOGY: As mentioned above. Medications/Allergies Home Medications Medication Instructions Recorded Confirmed Last Taken Type carvedilol 25 mg tablet 25 mg PO BID 07/03/24 07/27/24 07/26/24 History hydroxyzine HCl 10 mg tablet 10 mg PO TID PRN Anxiety 07/03/24 07/27/24 Unknown History lidocaine-prilocaine 2.5 %-2.5 % 1 applic topical .COMPLEX #30 grams 07/03/24 07/27/24 Unknown Rx topical cream spironolactone 25 mg tablet 25 mg PO DAILY 07/03/24 07/27/24 07/26/24 History torsemide 20 mg tablet 20 mg PO DAILY PRN Edema 07/03/24 07/27/24 Unknown History alectinib 150 mg capsule 600 mg (4 x 150 mg) PO BID #60 caps 07/24/24 07/27/24 Unknown Rx aspirin 81 mg capsule 81 mg PO DAILY 07/27/24 07/27/24 07/26/24 History Allergies Allergy/AdvReac Type Severity Reaction Status Date / Time No Known Allergies Allergy Verified 07/24/24 13:41 Current Medications Generic Name Dose Route Start Last Admin Trade Name Rufinoq PRN Reason Stop Dose Admin Aspirin 81 mg 07/28/24 09:00 07/28/24 09:23 Aspirin 81 Mg Ec Tablet PO 81 mg DAILY MANJINDER Administration Atorvastatin Calcium 80 mg 07/27/24 21:00 07/27/24 20:42 Atorvastatin 40 Mg Tablet PO Not Given BEDTIME MANJINDER Clopidogrel Bisulfate 75 mg 07/27/24 15:30 07/28/24 09:23 Clopidogrel 75 Mg Tablet PO 75 mg DAILY MANJINDER Administration Heparin Sodium/Sodium Chloride 25,000 unit in 500 mls @ 0 mls/hr 07/27/24 14:00 07/28/24 11:07 Heparin Drip IV 10.67 unit/kg/hr CONT MANJINDER 15 mls/hr Titration Protocol Per Protocol Sodium Chloride 1,000 mls @ 75 mls/hr 07/27/24 15:00 07/28/24 05:41 Sodium Chloride 0.9% IV 75 mls/hr .[id number] MANJINDER Administration Pantoprazole Sodium 40 mg 07/27/24 15:30 07/28/24 09:[address] 40 Mg Tablet PO 40 mg DAILY MANJINDER Administration PFSH Acute 2 PFSH: Social History Smoking and tobacco/nicotine status: former use of tobacco/nicotine Vitals/I&O/Wt Last Vital Signs Temp 97.8 F 07/28/24 11:44 Pulse 79 07/28/24 11:44 Resp 17 07/28/24 11:44 BP 111/41 07/28/24 11:44 Pulse Ox 94 07/28/24 04:36 O2 Del Method Room Air 07/28/24 04:36 07/27/24 07/28/24 07/28/24 22:59 06:59 14:59 Intake Total 1378 / 1378 1480 / 2858 166.2 / 166.2 Balance 1378 / 1378 1480 / 2858 166.2 / 166.2 Weight last 48 hrs Weight 161 lb 9.6 oz Weight 161 lb Weight 155 lb Physical Exam 2 Narrative: GENERAL: The patient is alert and oriented times three. Not in any acute distress. HEENT: No significant pallor, icterus or lymphadenopathy.Oral cavity: There are no mucous membrane lesions. NECK: Trachea appears to be central. No masses noted. No JVD or thyromegaly appreciated. Right supraclavicular mass RESPIRATORY: Chest is symmetrical. No intercostals muscle retraction or any accessory muscle activation. There is no chest wall tenderness. Breath sounds are heard bilaterally. No rales or rhonchi heard. No evidence of any consolidation. BREASTS: Deferred. HEART: The heart sounds are normal. No S3 or S4. No significant murmurs. No pericardial rub ABDOMEN: No vessel pulsations or distention. No tenderness. No organomegaly appreciated. Bowel sounds are normally heard. : Deferred. RECTAL: Deferred. LYMPHATIC: No lymphadenopathy noted in the neck. EXTREMITIES: There is status post and posterior pulses are palpable but weak bilaterally. MUSCULOSKELETAL: No acute joint deformities or swelling SKIN: There are no significant rashes or ecchymosis NEUROPSYCHIATRIC: The patient is alert and oriented x3. Appears to be in a good mood. No tremors or rigidity noted. Data 07/28/24 09:50 07/28/24 09:50 Other Labs: Laboratory Last Values WBC 5.82 10^3/uL (3.29-11.43) 07/28/24 09:50 RBC 3.68 10^6/uL (3.85-5.65) L 07/28/24 09:50 Hgb 10.50 g/dL (11.27-16.99) L 07/28/24 09:50 Hct 32.4 % (36-47) L 07/28/24 09:50 MCV 88.0 fl (85-98) 07/28/24 09:50 MCH 28.5 pg (27-33) 07/28/24 09:50 MCHC 32.4 g/dL (30-55) D 07/28/24 09:50 RDW 13.3 % (12.1-15.1) 07/28/24 09:50 Plt Count 220 10^3/cmm (157-399) 07/28/24 09:50 MPV 9.5 fL (7.4-10.4) 07/28/24 09:50 Neut % (Auto) 76.0 % 07/28/24 09:50 Lymph % (Auto) 9.6 % 07/28/24 09:50 Burnet % (Auto) 10.0 % 07/28/24 09:50 Eos % (Auto) 2.9 % 07/28/24 09:50 Baso % (Auto) 1.2 % 07/28/24 09:50 Neut # (Auto) 4.42 10^3/uL (1.8-7.7) 07/28/24 09:50 Lymph # (Auto) 0.6 10^3/uL (0.8-4.8) L 07/28/24 09:50 Burnet # (Auto) 0.6 10^3/uL (0.2-0.9) 07/28/24 09:50 Eos # (Auto) 0.2 10^3/uL (0.0-0.8) 07/28/24 09:50 Baso # (Auto) 0.1 10^3/uL (0.0-0.1) 07/28/24 09:50 Nucleated RBC % (auto) 0 % 07/28/24 09:50 Nucleated RBCs # 0.0 /100WBC 07/28/24 09:50 APTT 88.1 SECONDS (23.9-36.7) H 07/28/24 09:50 Sodium 141 mmol/L (136-145) 07/28/24 09:50 Potassium 3.7 mmol/L (3.5-5.1) 07/28/24 09:50 Chloride 109 mmol/L (98-107) H 07/28/24 09:50 Carbon Dioxide 20 mmol/L (22-29) L 07/28/24 09:50 Anion Gap 15.7 (5-19) 07/28/24 09:50 BUN 14 mg/dL (8-23) 07/28/24 09:50 Creatinine 0.9 mg/dL (0.5-0.9) 07/28/24 09:50 GFR Calculation Not Reportable 07/28/24 09:50 Glucose 92 mg/dL (65-115) 07/28/24 09:50 Estimat Average Glucose 114 07/27/24 10:29 Hemoglobin A1c 5.6 % (4.0-6.0) 07/27/24 10:29 Calculated Osmolality 292 mOsm/kg (285-295) 07/28/24 09:50 Calcium 7.8 mg/dL (8.5-10.5) L 07/28/24 09:50 Magnesium 1.7 mg/dL (1.7-2.3) 07/28/24 09:50 Total Bilirubin 0.3 mg/dL (0.15-1.2) 07/28/24 09:50 AST 11 U/L (0-32) 07/28/24 09:50 ALT < 5 U/L (0-33) 07/28/24 09:50 Alkaline Phosphatase 75 U/L (35-105) 07/28/24 09:50 Troponin T Baseline 23 ng/L (0-10) H 07/27/24 10:29 Troponin T 120 Minute 38.83 ng/L (0-10) H 07/27/24 13:13 Delta Troponin T 15.83 ABS# (0-10) H* 07/27/24 13:13 Troponin T Hi Sens 6Hr 29.54 ng/L (0-10) H 07/27/24 21:10 Troponin T Hi Sens 6Hr Delta 6.54 ng/L (0-12) 07/27/24 21:10 NT-Pro-B Natriuret Pep 275 pg/mL (0-450) 07/27/24 10:29 Total Protein 4.9 g/dL (6.6-8.7) L D 07/28/24 09:50 Albumin 2.8 g/dL (3.5-5.2) L 07/28/24 09:50 Globulin 2.1 g/dL (1.3-4.6) 07/28/24 09:50 Triglycerides 146 mg/dL (0-150) 07/27/24 10:29 Cholesterol 191 mg/dL (0-200) 07/27/24 10:29 LDL Cholesterol, Calc 124 mg/dL (50-129) 07/27/24 10:29 Total VLDL Cholesterol 29 mg/dL (0-30) 07/27/24 10:29 HDL Cholesterol 38 mg/dL (60-100) L 07/27/24 10:29 LDL/HDL Ratio 3.26 RATIO (0.00-3.22) H 07/27/24 10:29 Cholesterol/HDL Ratio 5.03 mg/dL (0.0-4.40) H 07/27/24 10:29 Procalcitonin 0.06 ng/mL (0-0.5) 07/27/24 10:29 TSH 0.44 uIU/mL (0.27-4.20) 07/27/24 10:29 Micro: Microbiology 07/27/24 09:50 Blood Culture - Preliminary Blood SPECIMEN COLLECTED 07/27/24 21:10 Blood Culture - Preliminary Blood SPECIMEN COLLECTED EKG 1: My Interpretation: Sinus bradycardia with a poor R wave progression. Low voltage complexes. Poor R wave progression. Diffuse nonspecific T wave changes. Other data: Echocardiogram from 07/27/2024 Normal left ventricular size with a borderline low ejection fraction of 50 to 55%.Mild to moderate left ventricular hypertrophy. Mildly increased left atrial size. Mild mitral annular calcification. Thickened aortic valve. Trace aortic valve regurgitation. Trace tricuspid valve regurgitation. There is no pericardial effusion. No similar previous studies are available for comparison A&P Assessment and plan (1) Syncope: The etiology of the syncope is not clear. Patient did not have any significant orthostatic hypotension. However because of the bradycardia, elevated troponin T and abnormal EKG, a cardiac etiology is a consideration. Possibility of underlying coronary ischemia is a consideration. She need to be closely monitored on telemetry. Her CT of the head was unremarkable. Qualifiers: Syncope type: unspecified Qualified Code(s): R55 - Syncope and collapse (2) Benign hypertension: Currently normotensive. May continue on the current medications. (3) Elevated troponin: This may assist in [id number] myocardial infarction. Her EKG may suggest old Anterior wall CO. She mayl be treated with heparin, statin and nitrates. Because of the bradycardia may hold off on the beta-blockers. Since she has no chest pain, a Myocardial perfusion imaging would be appropriate to further evaluate her coronary status. (4) Abnormal EKG: EKG is suggestive of old anterior CO. No acute ST-T changes. Based on the Myocardial perfusion imaging, further recommendations will be made. Plan We may schedule the patient for a Myocardial perfusion imaging tomorrow. Continue on the above medications. Based on the clinical progress, further recommendations will be made. Thank you for the opportunity to evaluate this patient and make these recommendations Coding Level of Care Code 22618 Diagnoses Syncope, unspecified syncope type R55 Syncope type: unspecified Benign hypertension I10 Elevated troponin R79.89 Abnormal EKG R94.31
--- NOTE | 2024-07-27 16:22 | P.CONIM_ITS ---
Documented by User: Katlyn Pack MD 07/28/24 08:50 Providers/Reason For Consult 2 Consulting Physician/Specialty*: Dr. 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 She was at the oncology center checking in to be seen. She states she was standing and got lightheaded dizzy and fell backwards and hit her head. She states she did have loss consciousness. She currently gets radiation treatments. She denies any chest pain at this time. She denies any significant heart history, although she takes blood pressure medications. She has no previous history for any coronary disease, myocardial infarction or congestive heart failure. She has a history of hypertension and smoking abuse. EKG was done that showed no acute ST elevation or t wave abnormalities. She has had some bradycardia as low as 53. Troponin was done that showed 23-38.3 positive delta. Current vital signs are stable. She is not requiring O2. Echo is being done at bedside. CT of the head ruled out acute bleed. She was tested for orthostatic hypotension. Her orthostatic vitals were found to be stable with the systolic blood pressure going up with the upright position. Review of Systems 2 Narrative: CONSTITUTIONAL: No fever or chills. EYES: No blurring of vision or other visual disturbances lately. ENT: No hoarseness of voice, auditory disturbances or sore throat. CARDIOVASCULAR: As mentioned above. RESPIRATORY: As mentioned above GASTROINTESTINAL: No hematemesis or melena. GENITOURINARY: No dysuria or hematuria. INTEGUMENTARY: No skin rashes or history of skin cancer. NEURO: As mentioned above PSYCHIATRIC: No history of psychosis or major depression. HEMATOLOGIC: No bleeding disorders or significant anemia. ENDOCRINE: No history of polyuria or polydipsia. MUSCULOSKELETAL: No recent joint pain or swelling. ALLERGY/IMMUNOLOGY: As mentioned above. Medications/Allergies Home Medications Medication Instructions Recorded Confirmed Last Taken Type carvedilol 25 mg tablet 25 mg PO BID 07/03/24 07/27/24 07/26/24 History hydroxyzine HCl 10 mg tablet 10 mg PO TID PRN Anxiety 07/03/24 07/27/24 Unknown History lidocaine-prilocaine 2.5 %-2.5 % 1 applic topical .COMPLEX #30 grams 07/03/24 07/27/24 Unknown Rx topical cream spironolactone 25 mg tablet 25 mg PO DAILY 07/03/24 07/27/24 07/26/24 History torsemide 20 mg tablet 20 mg PO DAILY PRN Edema 07/03/24 07/27/24 Unknown History alectinib 150 mg capsule 600 mg (4 x 150 mg) PO BID #60 caps 07/24/24 07/27/24 Unknown Rx aspirin 81 mg capsule 81 mg PO DAILY 07/27/24 07/27/24 07/26/24 History Allergies Allergy/AdvReac Type Severity Reaction Status Date / Time No Known Allergies Allergy Verified 07/24/24 13:41 Current Medications Generic Name Dose Route Start Last Admin Trade Name Freq PRN Reason Stop Dose Admin Heparin Sodium/Sodium Chloride 25,000 unit in 500 mls @ 0 mls/hr 07/27/24 14:00 07/27/24 15:04 Heparin Drip IV 14.22 unit/kg/hr CONT MANJINDER 20 mls/hr Administration Protocol Per Protocol PFSH Acute 2 PFSH: Social History Smoking and tobacco/nicotine status: former use of tobacco/nicotine Vitals/I&O/Wt Last Vital Signs Temp 98.2 F 07/27/24 10:16 Pulse 57 L 07/27/24 14:30 Resp 15 07/27/24 14:30 BP 105/52 07/27/24 14:30 Pulse Ox 98 07/27/24 14:30 O2 Del Method Room Air 07/27/24 10:16 07/27/24 07/27/24 07/27/24 06:59 14:59 22:59 Intake Total 1000 / 1000 Balance 1000 / 1000 Weight last 48 hrs Weight 155 lb Physical Exam 2 Narrative: GENERAL: The patient is alert and oriented times three. Not in any acute distress. HEENT: No significant pallor, icterus or lymphadenopathy.Oral cavity: There are no mucous membrane lesions. NECK: Trachea appears to be central. No masses noted. No JVD or thyromegaly appreciated. Firm mass at the right supraclavicular region. RESPIRATORY: Chest is symmetrical. No intercostals muscle retraction or any accessory muscle activation. There is no chest wall tenderness. Breath sounds are heard bilaterally. No rales or rhonchi heard. No evidence of any consolidation. BREASTS: Deferred. HEART: The heart sounds are normal. No S3 or S4. No significant murmurs. No pericardial rub ABDOMEN: No vessel pulsations or distention. No tenderness. No organomegaly appreciated. Bowel sounds are normally heard. : Deferred. RECTAL: Deferred. LYMPHATIC: No lymphadenopathy noted in the neck. EXTREMITIES: No edema or cyanosis. No clubbing. MUSCULOSKELETAL: No acute joint deformities or swelling SKIN: There are no significant rashes or ecchymosis NEUROPSYCHIATRIC: The patient is alert and oriented x3. Appears to be in a good mood. No tremors or rigidity noted. Data 07/27/24 10:29 07/27/24 10:29 Micro: Laboratory Last Values WBC 6.20 10^3/uL (3.29-11.43) 07/27/24 10:29 RBC 4.37 10^6/uL (3.85-5.65) 07/27/24 10:29 Hgb 12.30 g/dL (11.27-16.99) 07/27/24 10:29 Hct 40.3 % (36-47) 07/27/24 10:29 MCV 92.2 fl (85-98) 07/27/24 10:29 MCH 28.1 pg (27-33) 07/27/24 10:29 MCHC 30.5 g/dL (30-55) 07/27/24 10:29 RDW 13.4 % (12.1-15.1) 07/27/24 10:29 Plt Count 250 10^3/cmm (157-399) 07/27/24 10:29 MPV 9.5 fL (7.4-10.4) 07/27/24 10:29 Neut % (Auto) 71.6 % 07/27/24 10:29 Lymph % (Auto) 11.3 % 07/27/24 10:29 [place] % (Auto) 11.3 % 07/27/24 10:29 Eos % (Auto) 3.5 % 07/27/24 10:29 Baso % (Auto) 1.8 % 07/27/24 10:29 Neut # (Auto) 4.44 10^3/uL (1.8-7.7) 07/27/24 10:29 Lymph # (Auto) 0.7 10^3/uL (0.8-4.8) L 07/27/24 10:29 [place] # (Auto) 0.7 10^3/uL (0.2-0.9) 07/27/24 10:29 Eos # (Auto) 0.2 10^3/uL (0.0-0.8) 07/27/24 10:29 Baso # (Auto) 0.1 10^3/uL (0.0-0.1) 07/27/24 10:29 Nucleated RBC % (auto) 0 % 07/27/24 10: Nucleated RBCs # 0.0 /100WBC 07/27/24 10:29 Sodium 138 mmol/L (136-145) 07/27/24 10:29 Potassium 4.1 mmol/L (3.5-5.1) 07/27/24 10:29 Chloride 108 mmol/L (98-107) H 07/27/24 10:29 Carbon Dioxide 21 mmol/L (22-29) L 07/27/24 10:29 Anion Gap 13.1 (5-19) 07/27/24 10:29 BUN 16 mg/dL (8-23) 07/27/24 10:29 Creatinine 0.9 mg/dL (0.5-0.9) 07/27/24 10:29 GFR Calculation Not Reportable 07/27/24 10:29 Glucose 142 mg/dL (65-115) H 07/27/24 10:29 Estimat Average Glucose 114 07/27/24 10:29 Hemoglobin A1c 5.6 % (4.0-6.0) 07/27/24 10:29 Calculated Osmolality 290 mOsm/kg (285-295) 07/27/24 10:29 Calcium 8.9 mg/dL (8.5-10.5) 07/27/24 10:29 Total Bilirubin 0.4 mg/dL (0.15-1.2) 07/27/24 10:29 AST 12 U/L (0-32) 07/27/24 10:29 ALT < 5 U/L (0-33) 07/27/24 10:29 Alkaline Phosphatase 95 U/L (35-105) 07/27/24 10:29 Troponin T Baseline 23 ng/L (0-10) H 07/27/24 10:29 Troponin T 120 Minute 38.83 ng/L (0-10) H 07/27/24 13:13 Delta Troponin T 15.83 ABS# (0-10) H* 07/27/24 13:13 NT-Pro-B Natriuret Pep 275 pg/mL (0-450) 07/27/24 10:29 Total Protein 6.2 g/dL (6.6-8.7) L 07/27/24 10:29 Albumin 3.3 g/dL (3.5-5.2) L 07/27/24 10:29 Globulin 2.9 g/dL (1.3-4.6) 07/27/24 10:29 Triglycerides 146 mg/dL (0-150) 07/27/24 10:29 Cholesterol 191 mg/dL (0-200) 07/27/24 10:29 LDL Cholesterol, Calc 124 mg/dL (50-129) 07/27/24 10:29 Total VLDL Cholesterol 29 mg/dL (0-30) 07/27/24 10:29 HDL Cholesterol 38 mg/dL (60-100) L 07/27/24 10:29 LDL/HDL Ratio 3.26 RATIO (0.00-3.22) H 07/27/24 10:29 Cholesterol/HDL Ratio 5.03 mg/dL (0.0-4.40) H 07/27/24 10:29 Procalcitonin 0.06 ng/mL (0-0.5) 07/27/24 10:29 TSH 0.44 uIU/mL (0.27-4.20) 07/27/24 10:29 EKG 1: My Interpretation: Sinus bradycardia with a rate of 54 bpm. Poor R wave progression. Nonspecific T wave changes A&P Assessment and plan (1) Elevated troponin: Etiology is unclear. In view of the abnormal EKG and the syncope, possibility of underlying coronary ischemia causing this is a consideration. Patient had an echocardiogram done today. I will be reviewing the study. (2) Benign hypertension: Currently the blood pressure is in the normal range. (3) Syncope: Patient has no evidence of orthostatic hypotension. No documented significant arrhythmias. Cardiac arrhythmia is still a possibility. Coronary ischemia also need to be considered. Patient needs to be closely monitored. Qualifiers: Syncope type: unspecified Qualified Code(s): R55 - Syncope and collapse (4) Abnormal EKG: Send history of old anteroseptal [place]. This needs to be further evaluated. Plan I may consider doing a Myocardial perfusion imaging to further evaluate the cardiac status. Patient may be closely monitored on telemetry. Based on the clinical progress, further recommendations will be made. Thank you for the opportunity to evaluate this patient and make these recommendations Consult Attestations 2 Medical Necessity Statement: Patient requires continued hospital stay for close monitoring and further management Coding Level of Care Code 69810 Diagnoses Elevated troponin R79.89 Benign hypertension I10 Syncope, unspecified syncope type R55 Syncope type: unspecified Abnormal EKG R94.31 Documented by User: Mary Jo Westbrook NP 07/27/24 19:17 Providers/Reason For Consult 2 Consulting Physician/Specialty*: Dr. Pack Reason for Consult*: Elevated troponin, syncope Requesting Physician: Dr. Steiner History of Present Illness History of Present Illness This is a 79-year-old female with a history of a metastatic lung cancer and former smoker was at the oncology center checking in to be seen. She states she was standing and got lightheaded dizzy and fell backwards and hit her head. She states she did have loss consciousness. She currently gets radiation treatments. She denies any chest pain at this time. She denies any significant heart history, although she takes blood pressure medications. EKG was done that showed no acute ST elevation or t wave abnormalities. She has had some bradycardia as low as 53. Troponin was done that showed 23-38.3 positive delta. Current vital signs are stable. She is not requiring O2. Echo is being done at bedside. CT of the head ruled out acute bleed. Medications/Allergies Home Medications Medication Instructions Recorded Confirmed Last Taken Type carvedilol 25 mg tablet 25 mg PO BID 07/03/24 07/27/24 07/26/24 History hydroxyzine HCl 10 mg tablet 10 mg PO TID PRN Anxiety 07/03/24 07/27/24 Unknown History lidocaine-prilocaine 2.5 %-2.5 % 1 applic topical .COMPLEX #30 grams 07/03/24 07/27/24 Unknown Rx topical cream spironolactone 25 mg tablet 25 mg PO DAILY 07/03/24 07/27/24 07/26/24 History torsemide 20 mg tablet 20 mg PO DAILY PRN Edema 07/03/24 07/27/24 Unknown History alectinib 150 mg capsule 600 mg (4 x 150 mg) PO BID #60 caps 07/24/24 07/27/24 Unknown Rx aspirin 81 mg capsule 81 mg PO DAILY 07/27/24 07/27/24 07/26/24 History Allergies Allergy/AdvReac Type Severity Reaction Status Date / Time No Known Allergies Allergy Verified 07/24/24 13:41 PFSH Acute 2 PFSH: Social History Smoking and tobacco/nicotine status: former use of tobacco/nicotine Data 07/27/24 10:29 07/27/24 10:29 A&P Assessment and plan (1) Elevated troponin: (2) Benign hypertension: (3) Syncope: Qualifiers: Syncope type: unspecified Qualified Code(s): R55 - Syncope and collapse (4) Abnormal EKG: Coding Level of Care Code 89729 Diagnoses Elevated troponin R79.89 Benign hypertension I10 Syncope, unspecified syncope type R55 Syncope type: unspecified Abnormal EKG R94.31
[2024-07-27] MEDS: sodium chloride 0.9% 1,000 ML 75 ML IV (16:53)
[2024-07-27] MEDS: pantoprazole DR 40 mg Tablet PO (16:54)
[2024-07-27] MEDS: clopidogrel 75 mg Tablet PO (16:54)
--- NOTE | 2024-07-27 17:11 | ECG_ITS ---
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 Measurements Intervals [place] Rate: 53 P: 0 KS: 0 QRS: 12 QRSD: 76 T: 59 QT: 430 QTc: 405 Interpretive Statements Sinus bradycardia with borderline first-degree AV block LOW QRS VOLTAGE [QRS DEFLECTION < 0.5/1.0 mV IN LIMB/CHEST LEADS] ANTEROSEPTAL MYOCARDIAL INFARCTION , OF INDETERMINATE AGE [40+ ms Q WAVE IN V1-V4] Compared to ECG 07/27/2024 13:23:36 Sinus bradycardia no longer present Sinus arrhythmia no longer present Myocardial infarct finding still present Electronically Signed On 07-28-2024 21:57:04 OFFAL ICER POULTRY by Katlyn Pack M.D. [email or web address]
--- NOTE | 2024-07-27 19:55 | PC.NURSE ---
This nurse and Oksana Mcdowell went into patients room to count the money that was in patients wallet, patient refused to allow nurses to count. Nurses asked patient just to count money, patient refused that as well, patient stated that no one needs to know the amount of money she had in her wallet, patient is keeping money and wallet in her room.
--- NOTE | 2024-07-27 21:30 | ECG_ITS ---
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 Interpretive Statements Lung unchanged pre/post procedure; Intraprocedure shortess of breath; Symptoms resoled by discharge PROCEDURE: At the baseline, the EKG revealed normal sinus rhythm with a poor R wave progression. Possible old anterior AL. Some nonspecific T wave changes. Minimal left axis deviation. The baseline heart was 65 bpm with a blood pressue of 120/62 mm of Hg Lexiscan was infused over a period of 20 seconds. A total of 0.4 milligrams of Lexiscan was infused. The stress phase was continued for a total of 5 minutes. Heart rate at the end of the stress phase was 74 bpm with a blood pressure 118/56 mm of Hg. The EKG at the peak infusion revealed no significant changes. Sestamibi was injected 20 seconds after the Lexiscan infusion. Heart rate at the end of the recovery phase was 75 bpm with a blood pressure of 112/74 mm of Hg. CONCLUSION: 1. No significant EKG changes with the LexiScan infusion 2. No LexiScan induced chest pain or cardiac arrhythmia 3. Normal blood pressure and heart rate response 4. Sestamibi/sestamibi perfusion scan pending; see separate report. Electronically Signed On 07-30-2024 17:18:07 SOCIAL SERVICE COORDINATOR by Katlyn Pack M.D. [email or web address]
[2024-07-27 21:35] LABS: Troponin 5 6HR 29.54 ng/L (0-10)
[2024-07-27 21:36] LABS: Troponin 5 6HR Delta 6.54 ng/L (0-12)
[2024-07-27 21:43] LABS: Partial Thromboplastin Time 150.3 SECONDS (23.9-36.7)
[2024-07-28] VITALS (12 sets, daily range): BP systolic 102–120; BP diastolic 23–77; PULSE 64–84; RESP 10–17; TEMP 36.6–37; O2SAT 94–99
[2024-07-28] MEDS: sodium chloride 0.9% 1,000 ML 75 ML IV ×2 (05:41→20:07)
[2024-07-28] MEDS: regadenoson 0.4 Mg/5 ml Syringe IVP (07:44)
[2024-07-28] MEDS: pantoprazole DR 40 mg Tablet PO (09:23)
[2024-07-28] MEDS: aspirin 81 mg EC Tablet PO (09:23)
[2024-07-28] MEDS: clopidogrel 75 mg Tablet PO (09:23)
[2024-07-28 10:17] LABS: Basophils # 0.1 10^3/uL (0.0-0.1); Basophils % 1.2 %; Eosinophils # 0.2 10^3/uL (0.0-0.8); Eosinophils % 2.9 %; Hematocrit 32.4 % (36-47); Lymphocytes # 0.6 10^3/uL (0.8-4.8); Lymphocytes % 9.6 %; Mean Corpuscular HGB Conc 32.4 g/dL (30-55); Mean Corpuscular Hemoglobin 28.5 pg (27-33); Mean Platelet Volume 9.5 fL (7.4-10.4); Monocytes # 0.6 10^3/uL (0.2-0.9); Neutrophils # 4.42 10^3/uL (1.8-7.7); Nucleated Red Blood Cells % 0 %; Platelet Count 220 10^3/cmm (157-399); Red Blood Count 3.68 10^6/uL (3.85-5.65); Red Cell Distribution Width 13.3 % (12.1-15.1); White Blood Count 5.82 10^3/uL (3.29-11.43)
[2024-07-28 10:37] LABS: Alanine Aminotransferase < 5 U/L (0-33); Albumin Level 2.8 g/dL (3.5-5.2); Alkaline Phosphatase 75 U/L (35-105); Aspartate Amino Transferase 11 U/L (0-32); Blood Urea Nitrogen 14 mg/dL (8-23); Calcium 7.8 mg/dL (8.5-10.5); Carbon Dioxide 20 mmol/L (22-29); Chloride 109 mmol/L (98-107); Creatinine Clr Calc Pharmacy 51.9303; Globulin 2.1 g/dL (1.3-4.6); Glucose 92 mg/dL (65-115); Magnesium 1.7 mg/dL (1.7-2.3); Osmolality Calculated 292 mOsm/kg (285-295); Sodium 141 mmol/L (136-145); Total Bilirubin 0.3 mg/dL (0.15-1.2); Total Protein 4.9 g/dL (6.6-8.7)
[2024-07-28 10:41] LABS: Partial Thromboplastin Time 88.1 SECONDS (23.9-36.7)
[2024-07-28 11:06] LABS: Anion Gap 15.7 (5-19); Potassium 3.7 mmol/L (3.5-5.1)
--- NOTE | 2024-07-28 13:39 | P.PN_ITS ---
Subjective 2 Subjective: Patient had a Myocardial perfusion imaging today. She was found to have small to moderate area of ischemia in the distribution of the left circumflex artery. Apparently she has been having some episodes of chest pain on the left inframammary region, since the Perfusion scan. Medications: Medication Review Details: Current Medications Acetaminophen (Acetaminophen 325 Mg Tablet) 650 mg PO Q6H PRN PRN Reason: Mild/Mod Pain Or Temp >/= 101 Aminophylline (Aminophylline 25 Mg/Ml Sdv 20 Ml) 25 mg IVP Q2M PRN PRN Reason: see dose instructions Stop: 07/29/24 06:18 Aspirin (Aspirin 81 Mg Ec Tablet) 81 mg PO DAILY [facility] Last Admin: 07/28/24 09:23 Dose: 81 mg Atorvastatin Calcium (Atorvastatin 40 Mg Tablet) 80 mg PO BEDTIME [facility] Last Admin: 07/27/24 20:42 Dose: Not Given Clopidogrel Bisulfate (Clopidogrel 75 Mg Tablet) 75 mg PO DAILY [facility] Last Admin: 07/28/24 09:23 Dose: 75 mg Heparin Sodium (Porcine) (Heparin 5,000 Unit/Ml Inj 1 Ml) 0 unit IVP PRN PRN; Protocol PRN Reason: Heparin Weight Based Protocol -Subsequent Bolus Heparin Sodium/Sodium Chloride (Heparin Drip) 25,000 unit in 500 mls @ 0 mls/hr IV CONT [facility]; Protocol Last Titration: 07/28/24 11:07 Dose: 10.67 unit/kg/hr, 15 mls/hr Sodium Chloride (Sodium Chloride 0.9%) 1,000 mls @ 75 mls/hr IV .[id number] [facility] Last Admin: 07/28/24 05:41 Dose: 75 mls/hr Sodium Chloride (Sodium Chloride 0.9%) 1,000 mls @ 50 mls/hr IV .Q20H ONE Stop: 07/29/24 09:08 Nitroglycerin (Nitroglycerin 0.4 Mg Sublingual Tablet) 0.4 mg SUBLINGUAL Q5M PRN PRN Reason: CHEST PAIN Stop: 07/29/24 06:18 Ondansetron HCl (Ondansetron 2 Mg/Ml Sdv 2 Ml) 4 mg IVP Q8H PRN PRN Reason: vomiting, or N/V if npo Ondansetron HCl (Ondansetron 2 Mg/Ml Sdv 2 Ml) 4 mg IVP Q2M PRN PRN Reason: NAUSEA Pantoprazole Sodium (Pantoprazole Dr 40 Mg Tablet) 40 mg PO DAILY MANJINDER Last Admin: 07/28/24 09:23 Dose: 40 mg Vitals/I&O/Wt Last Vital Signs Temp 97.8 F 07/28/24 11:44 Pulse 79 07/28/24 11:44 Resp 17 07/28/24 11:44 BP 111/41 07/28/24 11:44 Pulse Ox 94 07/28/24 04:36 O2 Del Method Room Air 07/28/24 04:36 07/27/24 07/28/24 07/28/24 22:59 06:59 14:59 Intake Total 1378 / 1378 1480 / 2858 166.2 / 166.2 Balance 1378 / 1378 1480 / 2858 166.2 / 166.2 Weight last 48 hrs Weight 161 lb 9.6 oz Weight 161 lb Weight 155 lb Physical Exam 2 Narrative: GENERAL: The patient is alert and oriented times three. Not in any acute distress. HEENT: No significant pallor, icterus or lymphadenopathy.Oral cavity: There are no mucous membrane lesions. NECK: Trachea appears to be central. No masses noted. No JVD or thyromegaly appreciated. Right supraclavicular mass RESPIRATORY: Chest is symmetrical. No intercostals muscle retraction or any accessory muscle activation. There is no chest wall tenderness. Breath sounds are heard bilaterally. No rales or rhonchi heard. No evidence of any consolidation. BREASTS: Deferred. HEART: The heart sounds are normal. No S3 or S4. No significant murmurs. No pericardial rub ABDOMEN: No vessel pulsations or distention. No tenderness. No organomegaly appreciated. Bowel sounds are normally heard. : Deferred. RECTAL: Deferred. LYMPHATIC: No lymphadenopathy noted in the neck. EXTREMITIES: There is status post and posterior pulses are palpable but weak bilaterally. MUSCULOSKELETAL: No acute joint deformities or swelling SKIN: There are no significant rashes or ecchymosis NEUROPSYCHIATRIC: The patient is alert and oriented x3. Appears to be in a good mood. No tremors or rigidity noted. Data 07/28/24 09:50 07/28/24 09:50 Other Labs: Laboratory Last Values WBC 5.82 10^3/uL (3.29-11.43) 07/28/24 09:50 RBC 3.68 10^6/uL (3.85-5.65) L 07/28/24 09:50 Hgb 10.50 g/dL (11.27-16.99) L 07/28/24 09:50 Hct 32.4 % (36-47) L 07/28/24 09:50 MCV 88.0 fl (85-98) 07/28/24 09:50 MCH 28.5 pg (27-33) 07/28/24 09:50 MCHC 32.4 g/dL (30-55) D 07/28/24 09:50 RDW 13.3 % (12.1-15.1) 07/28/24 09:50 Plt Count 220 10^3/cmm (157-399) 07/28/24 09:50 MPV 9.5 fL (7.4-10.4) 07/28/24 09:50 Neut % (Auto) 76.0 % 07/28/24 09:50 Lymph % (Auto) 9.6 % 07/28/24 09:50 [place] % (Auto) 10.0 % 07/28/24 09:50 Eos % (Auto) 2.9 % 07/28/24 09:50 Baso % (Auto) 1.2 % 07/28/24 09:50 Neut # (Auto) 4.42 10^3/uL (1.8-7.7) 07/28/24 09:50 Lymph # (Auto) 0.6 10^3/uL (0.8-4.8) L 07/28/24 09:50 [place] # (Auto) 0.6 10^3/uL (0.2-0.9) 07/28/24 09:50 Eos # (Auto) 0.2 10^3/uL (0.0-0.8) 07/28/24 09:50 Baso # (Auto) 0.1 10^3/uL (0.0-0.1) 07/28/24 09:50 Nucleated RBC % (auto) 0 % 07/28/24 09:50 Nucleated RBCs # 0.0 /100WBC 07/28/24 09:50 APTT 88.1 SECONDS (23.9-36.7) H 07/28/24 09:50 Sodium 141 mmol/L (136-145) 07/28/24 09:50 Potassium 3.7 mmol/L (3.5-5.1) 07/28/24 09:50 Chloride 109 mmol/L (98-107) H 07/28/24 09:50 Carbon Dioxide 20 mmol/L (22-29) L 07/28/24 09:50 Anion Gap 15.7 (5-19) 07/28/24 09:50 BUN 14 mg/dL (8-23) 07/28/24 09:50 Creatinine 0.9 mg/dL (0.5-0.9) 07/28/24 09:50 GFR Calculation Not Reportable 07/28/24 09:50 Glucose 92 mg/dL (65-115) 07/28/24 09:50 Estimat Average Glucose 114 07/27/24 10:29 Hemoglobin A1c 5.6 % (4.0-6.0) 07/27/24 10:29 Calculated Osmolality 292 mOsm/kg (285-295) 07/28/24 09:50 Calcium 7.8 mg/dL (8.5-10.5) L 07/28/24 09:50 Magnesium 1.7 mg/dL (1.7-2.3) 07/28/24 09:50 Total Bilirubin 0.3 mg/dL (0.15-1.2) 07/28/24 09:50 AST 11 U/L (0-32) 07/28/24 09:50 ALT < 5 U/L (0-33) 07/28/24 09:50 Alkaline Phosphatase 75 U/L (35-105) 07/28/24 09:50 Troponin T Baseline 23 ng/L (0-10) H 07/27/24 10:29 Troponin T 120 Minute 38.83 ng/L (0-10) H 07/27/24 13:13 Delta Troponin T 15.83 ABS# (0-10) H* 07/27/24 13:13 Troponin T Hi Sens 6Hr 29.54 ng/L (0-10) H 07/27/24 21:10 Troponin T Hi Sens 6Hr Delta 6.54 ng/L (0-12) 07/27/24 21:10 NT-Pro-B Natriuret Pep 275 pg/mL (0-450) 07/27/24 10:29 Total Protein 4.9 g/dL (6.6-8.7) L D 07/28/24 09:50 Albumin 2.8 g/dL (3.5-5.2) L 07/28/24 09:50 Globulin 2.1 g/dL (1.3-4.6) 07/28/24 09:50 Triglycerides 146 mg/dL (0-150) 07/27/24 10:29 Cholesterol 191 mg/dL (0-200) 07/27/24 10:29 LDL Cholesterol, Calc 124 mg/dL (50-129) 07/27/24 10:29 Total VLDL Cholesterol 29 mg/dL (0-30) 07/27/24 10:29 HDL Cholesterol 38 mg/dL (60-100) L 07/27/24 10:29 LDL/HDL Ratio 3.26 RATIO (0.00-3.22) H 07/27/24 10:29 Cholesterol/HDL Ratio 5.03 mg/dL (0.0-4.40) H 07/27/24 10:29 Procalcitonin 0.06 ng/mL (0-0.5) 07/27/24 10:29 TSH 0.44 uIU/mL (0.27-4.20) 07/27/24 10:29 Micro: Microbiology 07/27/24 09:50 Blood Culture - Preliminary Blood SPECIMEN COLLECTED 07/27/24 21:10 Blood Culture - Preliminary Blood SPECIMEN COLLECTED Other data: Myocardial perfusion imaging from today 1. Myocardial perfusion imaging revealing small to moderate area of reversible defect involving the mid inferolateral and apical lateral regions predominantly with some involvement of the mid inferior regions suggesting ischemia in the distribution of the circumflex artery with some involvement of the right coronary artery. 2. Normal LV ejection fraction 75%. 3. LV wall motion analysis revealing no gross wall motion abnormalities. 4. Normal LV volume No similar previous studies are available for comparison A&P Assessment and plan (1) Syncope: The etiology of the syncope is not clear. Patient did not have any significant orthostatic hypotension. However because of the bradycardia, elevated troponin T and abnormal EKG, a cardiac etiology is a consideration. Possibility of underlying coronary ischemia is a consideration. She need to be closely monitored on telemetry. Her CT of the head was unremarkable. So far she did not have any significant arrhythmias on the monitor. Her heart rate dropped to the 40s last night. This happened during sleep. No significant bradycardia with activities. No significant pauses. Qualifiers: Syncope type: unspecified Qualified Code(s): R55 - Syncope and collapse (2) Benign hypertension: Currently normotensive. May continue on the current medications. (3) Elevated troponin: Most likely related to [id number] myocardial infarction. Patient had a Myocardial perfusion imaging today suggesting ischemia in the distribution of the left circumflex artery. (4) Abnormal EKG: EKG is suggestive of old anterior PR. No acute ST-T changes. It is possible that the patient may have multivessel disease Plan She has atypical chest pains. Not convincing it is cardiac. However it started after the stress test. Will do an EKG to look for new changes. Discussed about further management options with the patient and her son. Noted to further evaluate her coronary status, a cardiac catheterization would be appropriate. The risk and benefits were discussed in detail. The risk of bleeding, hematoma, vascular injury, myocardial infarction, myocardial perforation, malignant cardiac arrhythmias ,CVA, renal failure and other concomitant complications were explained in detail. Patient and her son understood this well and consented to proceed. We may go ahead and schedule this procedure today. Attestations 2 Medical Necessity Statement*: Patient requires continued hospital stay for close monitoring and further management Coding Level of Care Code 55735 Diagnoses Syncope, unspecified syncope type R55 Syncope type: unspecified Benign hypertension I10 Elevated troponin R79.89 Abnormal EKG R94.31
--- NOTE | 2024-07-28 13:43 | ECG_ITS ---
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 Measurements Intervals [place] Rate: 79 P: 96 ID: [id number] QRS: -22 QRSD: 89 T: 67 QT: 376 QTc: 432 Interpretive Statements SINUS RHYTHM LOW QRS VOLTAGE IN PRECORDIAL LEADS [QRS DEFLECTION < 1.0 mV IN CHEST LEADS] POSSIBLE ANTERIOR MYOCARDIAL INFARCTION , PROBABLY OLD [30 ms Q WAVE IN V3/V4, OR R < 0.2 mV IN V4] Compared to ECG 07/27/2024 17:11:14 Atrial fibrillation no longer present Myocardial infarct finding still present Electronically Signed On 07-28-2024 21:57:14 RN SOCIAL SERVICES by Katlyn Pack M.D. [id number]
--- NOTE | 2024-07-28 13:55 | W.PM.OPSUD ---
Surgery/Procedure H&P Update DATE OF PROCEDURE: July 28, 2024 DATE H&P PERFORMED: 07/27/24 H&P UPDATE INFORMATION: I have reviewed H&P completed within last 30 days, I have examined patient prior to procedure and No changes to prior documentation PREOP DIAGNOSIS: Atherosclerotic heart disease PRIMARY INDICATION FOR PROCEDURE: Syncope, non-ST relation myocardial infarction and abnormal Myocardial perfusion imaging PLANNED PROCEDURE: Left heart catheterization with coronary angiogram and possible PCI PATIENT REASSESSED PRIOR TO SEDATION, WITH NO CHANGE NOTED: Yes PHYSICAL EXAM: alert, oriented x 3 and clear to auscultation bilaterally AIRWAY EVAL/ANESTHESIA PLAN: normal airway, see other exam findings, ASA III, Monitored Anesthesia, Local Anesthesia, Risks, benefits & alternatives of sedation and/or procedure discussed and Patient agrees to continue as planned
--- NOTE | 2024-07-28 14:10 | P.PN_ITS ---
Subjective 2 Subjective: Seen this morning. Patient returned from stress test. Awaiting results at this time. His chest pain-free and has not had any needs or symptoms. Vitals/I&O/Wt Last Vital Signs Temp 97.8 F 07/28/24 11:44 Pulse 79 07/28/24 11:44 Resp 17 07/28/24 11:44 BP 111/41 07/28/24 11:44 Pulse Ox 94 07/28/24 04:36 O2 Del Method Room Air 07/28/24 04:36 07/27/24 07/28/24 07/28/24 22:59 06:59 14:59 Intake Total 1378 / 1378 1480 / 2858 166.2 / 166.2 Balance 1378 / 1378 1480 / 2858 166.2 / 166.2 Weight last 48 hrs Weight 73.301 kg Weight 73.028 kg Weight 70.307 kg Physical Exam 2 Narrative: General: Alert oriented x3, patient seen laying in bed appearing comfortable HEENT: Normocephalic, atraumatic, EOMI, Cardio: Regular rate rhythm, normal S1-S2, Respiratory: Good bilateral air entry, no wheezes no rhonchi appreciated GI: Abdomen soft, nontender, nondistended, bowel sounds + Behavior: Appropriate and cooperative Extremities: trace edema b/l Data 07/28/24 09:50 07/28/24 09:50 Micro: Microbiology 07/27/24 09:50 Blood Culture - Preliminary Blood SPECIMEN COLLECTED 07/27/24 21:10 Blood Culture - Preliminary Blood SPECIMEN COLLECTED A&P Assessment and plan (1) Benign hypertension: (2) Non-ST elevation VT (NSTEMI): (3) Elevated troponin: (4) Abnormal EKG: (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: (6) Cancer with unknown primary site: (7) Syncope: Qualifiers: Syncope type: unspecified Qualified Code(s): R55 - Syncope and collapse Plan #NSTEMI #HTN #Non small cell cancer/adenocarcinoma/right clavicle mass #Syncopal episode - place on telemetry - check echo - request records from [facility] cardiology - [place] trop at 6 hours positive 15.8 - place on heparin drip - place on aspirin, plavix, atorvastatin - avoid BB at this time - hold home antihypertensive at this time - cardiology consult - f/u with oncology at mo full code dvt ppx: heparin ggt 07/28/2024 -Stress test positive. Cardiology had a discussion with patient and her son. Plan for coronary angiogram today at 4 PM. Continue heparin drip at this time continue medications as listed above. ? Further recommendations to be made after coronary angiogram is done. Attestations 2 Medical Necessity Statement*: NSTEMI, patient requires coronary angiogram today. Plan for the afternoon. Diagnoses Benign hypertension I10 Non-ST elevation VT (NSTEMI) I21.4 Elevated troponin R79.89 Abnormal EKG R94.31 Lung cancer metastatic to bone C34.90; C79.51 Cancer with unknown primary site C80.1 Syncope, unspecified syncope type R55 Syncope type: unspecified
--- NOTE | 2024-07-28 14:26 | PC.SOCIAL ---
IMM Update pg 2 of IMM updated and reviewed w/ patient. Copy provided and copy dated, initialed and placed in chart.
--- NOTE | 2024-07-28 16:00 | XACV_ITS ---
Exam Room: [facility] Ht: 168 cm Wt: 73 kg BSA: 1.86 m2 Gender: Female : 1945 Any Known Allergies: No known allergies Exam Priority: Routine Procedure(s): Procedure Description: Diagnostic procedure Procedure Description: PCI procedure Procedure Description: Left Heart Catheterization Procedure Description: Drug Eluting Coronary Stent Procedure Description: PTCA Procedure Description: Miscellaneous Procedure Description: ACT Procedure Description: Coronary Angiography Ramone GARCIA; Diagnostic Cath Status: Urgent Diagnostic Findings * Left main is a medium caliber vessel withno lesions. * The left artery descending artery is a medium caliber vessel with mild diffuse intimal irregularities. No significant stenotic lesions were noted. The second diagonal branch, relatively small caliber vessel was found to have around 50% ostial narrowing.. * The left circumflex artery is a medium caliber nondominant vessel which was found to have a proximal around 60-70% lesion. * The right coronary artery is a large dominant vessel with a low and posterior takeoff. The artery was found to have no significant stenotic lesions. PCI Status: Urgent PCI Indication: NSTE - ACS Interventional Findings * Procedure detail: We engaged left main artery with XB guide catheter. Heparin was used for anticoagulation. Runthrough wire was used to cross the stenosis. We predilated the lesion with 2.5x12 mm semi compliant balloon. This was followed by placement of 2.75 x 18 mm Resolute nini ZE. At this time final angiogram was performed that showed excellent stent expansion, AMANDA 3 flow and no residual stenosis. Guidewire and guide catheter were removed. Patient left the laborer heading in a stable condition. * Proximal Circumflex: 70% stenosis treated with a AB TREK 2.50X12 RX BALLOON, and BUBBA Elliott NINI 2.75X18 ZE. Conclusions 1. This is a 78-year-old white female with multiple risk factors for coronary disease, presented with an episode of syncope. She was found to have elevated troponin T and abnormal EKG suggestive of old anterior wall OH. Myocardial perfusion imaging revealed a small to moderate area of reversible defect in the distribution of the left circumflex artery. In view of her presenting symptoms and the abnormal objective findings, in order to further evaluate the coronary status, a cardiac catheterization was recommended. Patient underwent left heart catheterization with left and right coronary angiogram today. The findings are as follows. 2. Left main has no significant lesions. Left anterior descending artery was found to have mild diffuse intimal irregularities. Left circumflex artery had a 60% proximal lesion. Right coronary artery was found to be a large dominant vessel with no significant lesions. LVEDP of 17 mmHg. 3. I reviewed and discussed the angiogram findings with Dr. Holamn. Considering the patient's history and the abnormal objective findings, it was thought to be appropriate to consider PCI of the circumflex artery lesion. Dr. Holman took over further management of this patient at this point. 4. S/P successful revascularization of proximal to mid left circumflex artery with 1 stent. 5. Proximal Circumflex was treated with a Balloon, and Drug Eluting Stent. Recommendations * Dual antiplatelet therapy with aspirin and plavix for atleast 1 year. * High intensity statin therapy. * Outpatient cardiology follow up in 2 weeks. Interventional RX Recommendation: PCI w/o planned CABG Diagnostic RX Recommendation: PCI w/o planned CABG Anticoagulation: Heparin LV EDP: 17 mmHg Left Ventriculography Findings: * LV gram was not performed to minimize the dye usage. The LVEDP was 17mmHg. Pressures Phase:Rest AO : 109 / 82 ( 74 ) @ 4:24:00 PM 126 / 45 ( 72 ) @ 4:36:00 PM 119 / 51 ( 81 ) @ 4:43:00 PM 128 / 56 ( 84 ) @ 4:47:00 PM LV : 124 / 82 / 17 @ 4:43:00 PM Clinical Evaluation EBL: 5mL-10mL Procedural Details Procedure Consent Obtained. Pre-Procedure Time Out. Identified patient by full name and date of as verbalized by the patient/guarantor. Does the consent match the physician's order: Yes. Accurate & Complete Informed Consent: Yes. Inpatient/Outpatient History & Physical on Chart: Yes. If H&P is completed, is and addenduem needed: No. Visualize and Verify Site with Patient/Guarantor: N/A. Relevant Radiology Images available: Yes. The risks, benefits, and alternatives of sedation and/or procedure were discussed by physician. The patient agrees to continue. Procedure started. [facility] Clinical Fraility Score: 6: Moderately Frail. Pharmacy Intake Technician Indications: ACS >24 hrs/NSTEMI/Abnormal stress test/Syncope. Chest Pain Symptom Assessment: Typical Angina Symptoms. Cardiovascular Instability: No. Correct patient, site and procedure confirmed by cath team. PERRLA. Strong, equal hand shipping and receiving supervisor bilaterally. Lungs clear x 5 lobes. Existing IV in the right wrist had to be discontinued dut to the procedural access sited. Cath tip was intact. patient tolerated well. A 20 gauge IV was started in the left forearm using aseptic technique. IV Fluids: 0.9% NaCl at KVO. 800 mL infused prior to laborer heading. Pre Procedural Pulses: bilateral dorsalis pedis was 2+. Pre Procedural Pulses: bilateral posterior tibial was 2+. Pre Procedural Pulses: bilateral radial was 2+. Oxygen started at 2liters/min via nasal canula. right groin was prepped with chloroprep then draped in the usual sterile fashion. right radial was prepped with chloroprep then draped in the usual sterile fashion. Physician notified. Baseline sample Acquired. HR: 30 BPM. Patient's family, Willem Koch, is in the laborer heading waiting room. Dr. Pack will update at the completion of the procedure. Equipment: 6F - Radial. Cardiac Cath Pack. ACIST Manifold Kit Model BT 2000. Heparinized Saline (2 units/mL), 1000 mL bag. Physician arrived. Physician scrubbed in. Immediate Pre-Procedure Time Out. Correct Patient: Yes; Correct Procedure: Yes; Correct Site: Yes; Correct Patient Position: Yes; Correct Supplies: Yes; Dried Flammable Prep: Yes; Blood Products Available: N/A;. Lidocaine 1% infiltrated to the right radial. Arterial access obtained. ACT drawn. Results 168 seconds. Therapeutic limits - pre-heparin administration 90-150 seconds and monitoring heparin during a vascular procedure >250 seconds. A 5 kosovan Luis catheter in over the exchange J wire. Multiple views taken of left coronary artery. Catheter redirected to the RCA. Catheter removed over the exchange wire. A 5 kosovan JR4 catheter in over the exchange J wire. Catheter removed over the exchange J wire. A 5 kosovan 3DRC catheter in over the exchange J wire. Multiple views taken of right coronary artery. Catheter removed over the exchange J wire. A 5 kosovan Angled Pig catheter in over the exchange J wire. EDP Sample taken: LV 124/82,17; HR: 95 BPM; SpO2: 98%. Pullback taken: LV Off; AO Off; Mean: , Peak to Peak: , SEP: ; HR: 46 BPM; SpO2: 97%. ACT drawn. Results 223 seconds. Therapeutic limits - pre-heparin administration 90-150 seconds and monitoring heparin during a vascular procedure >[address] Holman scrubbed in to start PCI. Catheter removed over the exchange J wire. 6 kosovan XB 3 guide catheter was inserted over the exchange J wire. Runthrough guidewire was advanced through the guide catheter to lesion in the prox LAD. Inflation number : 1 A AB TREK 2.50X12 RX BALLOON was prepped and advanced across the Prox CX , then inflated to 8 GIRMA for 0:11 seconds. Balloon out. Inflation Number : 2 A BUBBA Elliott NINI 2.75X18 ZE -Lot Number# [id number] was prepped and advanced across the Prox CX. The stent was deployed at 12 GIRMA for 0:18 seconds. Exp. . Stent balloon out over wire. Results checked. Wire out. ACT drawn. Results Out of range HI. Will redraw. Guide catheter out. Dr. Holman scrubbed out. ACT drawn. Results 243 seconds. Therapeutic limits - pre-heparin administration 90-150 seconds and monitoring heparin during a vascular procedure >250 seconds. A TR Band was successful obtaining hemostatsis at the Right Radial artery insertion site. Post Procedure: Pulses reassessed and unchanged. PERRLA. Strong, equal hand shipping and receiving supervisor bilaterally. No VTE prophylaxis required. Medication's Wasted: Lidocaine 1% = 18 mL. Medication's Wasted: Nitro = 49.9 mg. Medication's Wasted: Other = Fentanyl 87.5 mcg. Medication's Wasted: Heparin = 500 units mg. Total IV fluids: 300 mL. Post-op diagnosis: PCI of the Prox CX. Complications: none. Estimated blood loss: 5mL-10mL. Responsiveness - Normal response to verbal stimuli; alert and oriented, PERRLA. Airway - Unaffected, no intervention required; spontaneous ventilation. Circulation: W/N/L, pulses unchanged. Nausea/Vomiting: No. Procedure completed. Patient transferred by bed to 1st floor. Vital chart was stopped. Access Site Site: Right Radial artery Sheath Size: 6 Fr Hemostasis Method: TR Band Hemostasis Success: Successful Procedure Medications Start: 4:10 PM Stop: 4:10 PM Medication: Versed Amount: 0.5 mg Route: I.V. Start: 4:10 PM Stop: 4:10 PM Medication: Fentanyl Amount: 12.5 mg Route: I.V. Start: 4:17 PM Stop: 4:17 PM Medication: Versed Amount: 0.5 mg Route: I.V. Start: 4:20 PM Stop: 4:20 PM Medication: Verapamil Amount: 5 mg Route: I.A. Start: 4:22 PM Stop: 4:22 PM Medication: 0.9% Saline Amount: 250 ml Route: I.V. bolus Start: 4:24 PM Stop: 4:24 PM Medication: Heparin Amount: 1500 units Route: I.V. Start: 4:50 PM Stop: 4:50 PM Medication: Heparin Amount: 2000 units Route: I.V. Start: 4:50 PM Stop: 4:50 PM Medication: Nitrogylcerin Amount: 100 mcg Route: I.A. Start: 4:53 PM Stop: 4:53 PM Medication: Heparin Amount: 1000 units Route: I.V. Start: 4:59 PM Stop: 4:59 PM Medication: Versed Amount: 1 mg Route: I.V. Start: 5:11 PM Stop: 5:11 PM Medication: Plavix Amount: 300 mg Route: P.O. Start: 5:13 PM Stop: 5:13 PM Medication: Heparin Amount: 1000 units Route: I.V. I, the attending physician, have reviewed and verified all procedure medications. Yes, all medications given per verbal order History/Risk Factors Hypertension: Yes Dyslipidemia: No Peripheral Arterial Disease (PAD): No Myocardial Infarction (OH): No Obesity: No Renal Disease: No Tobacco Use: Never Prior Interventions PCI: No CABG: No Valve Surgery: No Report Signatures Interventional Workflow Finalized by Flako Holman MD on 07/30/2024 12:16 AM Diagnostic Workflow Finalized by Dr Katlyn Pack MD [facility] on 07/28/2024 08:34 PM
--- NOTE | 2024-07-28 17:11 | PM.PROC ---
Procedure Note: Date of procedure: 07/28/24 Pre-procedure diagnosis: Troponin elevation/ Abnormal stress test Post-procedure diagnosis: other (Severe proximal left circumflex artery stenosis s/p PCI with 1 stent) Procedure: Diagnostic angiogram was performed by Dr Pack. PCI performed by Dr Holman Significant stenosis of proximal left circumflex artery s/p successful revascularization with 1 stent. Dual antiplatelet therapy with aspirin and plavix Statin therapy Performing Provider: Flako Holman Complications: None Condition: stable Disposition: floor Coding Level of Care Code Acute Code for Niranjan Duran
[2024-07-28 19:03] LABS: Partial Thromboplastin Time > 250.0 SECONDS (23.9-36.7)
--- NOTE | 2024-07-28 19:05 | PC.NURSE ---
Patient became combative at this time. Patient had torn TR band off and was swinging cords around yelling at nurse Does this look normal to you? While shaking the wires at nurse. Patient is delusional regarding her surrounding. She knows she is in [place] but is very disoriented to her room and surroundings.
--- NOTE | 2024-07-28 21:31 | NMCV_ITS ---
NM jairo perf SPECT r/s* [id number] Anselmo Koch Age: 79 Gender: F : 1945 Exam Date: 07/28/2024 21:31 Ordering Phys: Katlyn Pack MD ([email or web address]) Technologist: YOLI Andrews Exam [facility]: [facility] Indications: cp STRESS TEST [facility] IMAGE PROTOCOL Rest/Stress 1 Lexiscan Day Radiopharmaceutical Dose (mCi) Administration Site Administered by Rest: Tc-99m 10.9 IV YOLI Turcios Sestamibi Stress:Tc-99m 32.6 IV YOLI Andrews Sestamiayaan Rest: 28-Jul-2024 60 Discovery 630 Stress: 28-Jul-2024 30 Discovery 630 0.4mg Lexiscan. Supine position only as patient was unable to lay prone. SPECT RESULTS Technical Quality: Good Raw Data Analysis: Normal Image Corrections: No attenuation or motion correction applied Summed Stress Score: 5 Summed Rest Score: 1 Summed Difference Score: 5 PERFUSION FINDINGS Small to moderate area of moderately decreased tracer uptake involving the mid inferolateral, apical lateral and mid inferior region. Significant reversibility was noted in these regions at rest. FUNCTIONAL RESULTS (calculated via Gated SPECT) Stress Image LV EF (%): 75 Stress EDV (mL):72 TID: 1 Stress ESV (mL):18 FUNCTIONAL FINDINGS: Segmental wall motion analysis revealing no gross wall motion abnormalities IMPRESSIONS 1. Myocardial perfusion imaging revealing small to moderate area of reversible defect involving the mid inferolateral and apical lateral regions predominantly with some involvement of the mid inferior regions suggesting ischemia in the distribution of the circumflex artery with some involvement of the right coronary artery. 2. Normal LV ejection fraction 75%. 3. LV wall motion analysis revealing no gross wall motion abnormalities. 4. Normal LV volume No similar previous studies are available for comparison Dr Katlyn Pack MD [facility] (Electronically Signed) Final Date: 28 July 2024 12:29 S
[2024-07-28] MEDS: temazepam 15 mg Capsule PO (21:32)
[2024-07-29 04:00] VITALS: BP 99/53; PULSE 75; RESP 13; O2SAT 96
[2024-07-29 05:19] LABS: Basophils # 0.1 10^3/uL (0.0-0.1); Basophils % 1.5 %; Eosinophils # 0.2 10^3/uL (0.0-0.8); Eosinophils % 5.2 %; Hematocrit 32.8 % (36-47); Lymphocytes # 0.6 10^3/uL (0.8-4.8); Lymphocytes % 13.3 %; Mean Corpuscular HGB Conc 31.7 g/dL (30-55); Mean Corpuscular Hemoglobin 28.4 pg (27-33); Mean Corpuscular Volume 89.6 fl (85-98); Mean Platelet Volume 9.6 fL (7.4-10.4); Monocytes # 0.7 10^3/uL (0.2-0.9); Monocytes % 15.5 %; Neutrophils # 2.94 10^3/uL (1.8-7.7); Neutrophils % 64.1 %; Nucleated Red Blood Cells % 0 %; Platelet Count 187 10^3/cmm (157-399); Red Blood Count 3.66 10^6/uL (3.85-5.65); Red Cell Distribution Width 13.6 % (12.1-15.1); White Blood Count 4.59 10^3/uL (3.29-11.43)
[2024-07-29 05:39] LABS: Anion Gap 12.5 (5-19); Blood Urea Nitrogen 10 mg/dL (8-23); Calcium 7.7 mg/dL (8.5-10.5); Carbon Dioxide 21 mmol/L (22-29); Chloride 111 mmol/L (98-107); Creatinine Clr Calc Pharmacy 51.9303; Glucose 118 mg/dL (65-115); Magnesium 1.7 mg/dL (1.7-2.3); Osmolality Calculated 292 mOsm/kg (285-295); Potassium 3.5 mmol/L (3.5-5.1); Sodium 141 mmol/L (136-145)
[2024-07-29 06:00] VITALS: PULSE 71
[2024-07-29] MEDS: aspirin 81 mg EC Tablet PO (07:39)
[2024-07-29] MEDS: clopidogrel 75 mg Tablet PO (07:39)
[2024-07-29 08:00] VITALS: BP 128/49; PULSE 75; RESP 14; TEMP 36.7; O2SAT 95
--- NOTE | 2024-07-29 09:34 | PC.CHAP ---
Pastoral Care Encounter/Spiritual Assessment Type of Contact [] Declined truck repair service estimator visit [] Patient/Family/Request visit [] Outpatient visit [] Follow-up visit [] Physician referral [] Code/Alert [] Routine visit [] Staff referral [] Actively dying [] Patient sleeping [] Family support [] [] Out of room [] Palliative care [] [] Receiving care in room [] Pre-surgical visit [] Trauma [] Long length of stay [] ICU visit [X] Other: STOP Airborne Contaminants Relational/Emotional Strength [] Patient feels connected with others/family/visitors/staff [] Distress [] Loneliness/isolation [] Abandonment Spirituality of Patient [] Person of Anca [] Attends Pentecostalism of their Anca [] Believes in Prayer [] Reads Bible or Religion materials [] There are Spiritual issues to be addressed Appliquer Zigzag Interventions [] Prayer [] Active listening [] Non-anxious presence [] Spiritual/emotional support [] Crisis/trauma care [] Spiritual counseling [] Bereavement support [] Provided bereavement packet [] Provided Bible/devotional materials [] Provided toy/stuffed animal, coloring book to patient or family member [] Provided Communion [] Anointing/Rumsey [] Salvation [] Completed spiritual assessment [] Other: Impact on Illness or Injury [] Angry [] Fearful [] Anxious [] Often cries [] Exhaustion [] Unable to work [] Unable to attend oriental orthodox [] Unable to walk/stand [] Unable to read [] Unable to drive [] Unable to eat/drink [] Unable to sleep [] Unable to be with family [] Patient intubated [] Other: Summary Time spent with patient
--- NOTE | 2024-07-29 10:42 | P.PN_ITS ---
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 She underwent PCI of this lesion. The patient is feeling okay. No chest pain or shortness of breath. She is very restless to go home. Her vital signs are remaining stable. No hematoma bleeding from the right radial arterial puncture site. Medications: Medication Review Details: Current Medications Acetaminophen (Acetaminophen 325 Mg Tablet) 650 mg PO Q6H PRN PRN Reason: Mild/Mod Pain Or Temp >/= 101 Al Hydrox/Mg Hydrox/Simethicone (Buos-Wec-Wdrmllszu-Cash 30 Ml Udc) 30 ml PO Q15M PRN PRN Reason: INDIGESTION Aspirin (Aspirin 81 Mg Ec Tablet) 81 mg PO DAILY [facility] Last Admin: 07/29/24 07:39 Dose: 81 mg Atorvastatin Calcium (Atorvastatin 40 Mg Tablet) 80 mg PO BEDTIME [facility] Last Admin: 07/28/24 20:08 Dose: Not Given Atropine Sulfate (Atropine 1 Mg/Ml Sdv 1 Ml) 0.5 mg IVP PRN PRN PRN Reason: Symptomatic bradycardia Clopidogrel Bisulfate (Clopidogrel 75 Mg Tablet) 75 mg PO DAILY [facility] Last Admin: 07/29/24 07:39 Dose: 75 mg Fentanyl (Fentanyl 50 Mcg/Ml Inj 2ml) 50 mcg IVP PRN PRN PRN Reason: Prior to sheath removal Sodium Chloride (Sodium Chloride 0.9%) 1,000 mls @ 75 mls/hr IV .[id number] [facility] Last Infusion: 07/29/24 07:44 Dose: Infused Magnesium Hydroxide (Magnesium Hydroxide 30 Ml Udc) 30 ml PO DAILY PRN PRN Reason: CONSTIPATION Naloxone HCl (Naloxone 0.4 Mg/Ml Sdv) 0.1 mg IVP Q2M PRN PRN Reason: RESPIRATORY RATE < 8/MIN Ondansetron HCl (Ondansetron 2 Mg/Ml Sdv 2 Ml) 4 mg IVP Q8H PRN PRN Reason: vomiting, or N/V if npo Ondansetron HCl (Ondansetron 2 Mg/Ml Sdv 2 Ml) 4 mg IVP Q2M PRN PRN Reason: NAUSEA Pantoprazole Sodium (Pantoprazole Dr 40 Mg Tablet) 40 mg PO DAILY [facility] Last Admin: 07/29/24 07:42 Dose: Not Given Temazepam (Temazepam 15 Mg Capsule) 15 mg PO BEDTIME PRN PRN Reason: INSOMNIA Last Admin: 07/28/24 21:32 Dose: 15 mg Vitals/I&O/Wt Last Vital Signs Temp 98.0 F 07/29/24 08:00 Pulse 75 07/29/24 08:00 Resp 14 07/29/24 08:00 BP 128/49 07/29/24 08:00 Pulse Ox 95 07/29/24 08:00 O2 Del Method Room Air 07/29/24 08:00 07/28/24 07/29/24 07/29/24 22:59 06:59 14:59 Intake Total 1315.8 / 1482.0 871.25 / 871.25 Balance 1315.8 / 1482.0 871.25 / 871.25 Weight last 48 hrs Weight 161 lb 9.6 oz Weight 161 lb 9.6 oz Weight 161 lb Weight 155 lb Physical Exam 2 Narrative: GENERAL: The patient is alert and oriented times three. Not in any acute distress. HEENT: No significant pallor, icterus or lymphadenopathy.Oral cavity: There are no mucous membrane lesions. NECK: Trachea appears to be central. No masses noted. No JVD or thyromegaly appreciated. Right supraclavicular mass RESPIRATORY: Chest is symmetrical. No intercostals muscle retraction or any accessory muscle activation. There is no chest wall tenderness. Breath sounds are heard bilaterally. No rales or rhonchi heard. No evidence of any consolidation. BREASTS: Deferred. HEART: The heart sounds are normal. No S3 or S4. No significant murmurs. No pericardial rub ABDOMEN: No vessel pulsations or distention. No tenderness. No organomegaly appreciated. Bowel sounds are normally heard. : Deferred. RECTAL: Deferred. LYMPHATIC: No lymphadenopathy noted in the neck. EXTREMITIES: The radial artery puncture site has no hematoma or bleeding MUSCULOSKELETAL: No acute joint deformities or swelling SKIN: There are no significant rashes or ecchymosis NEUROPSYCHIATRIC: The patient is alert and oriented x3. Appears to be in a good mood. No tremors or rigidity noted. Data 07/29/24 04:26 07/29/24 04:26 Other Labs: Laboratory Last Values WBC 4.59 10^3/uL (3.29-11.43) 07/29/24 04:26 RBC 3.66 10^6/uL (3.85-5.65) L 07/29/24 04:26 Hgb 10.40 g/dL (11.27-16.99) L 07/29/24 04:26 Hct 32.8 % (36-47) L 07/29/24 04:26 MCV 89.6 fl (85-98) 07/29/24 04:26 MCH 28.4 pg (27-33) 07/29/24 04: MCHC 31.7 g/dL (30-55) 07/29/24 04:26 RDW 13.6 % (12.1-15.1) 07/29/24 04:26 Plt Count 187 10^3/cmm (157-399) 07/29/24 04: MPV 9.6 fL (7.4-10.4) 07/29/24 04:26 Neut % (Auto) 64.1 % 07/29/24 04:26 Lymph % (Auto) 13.3 % 07/29/24 04:26 [place] % (Auto) 15.5 % 07/29/24 04:26 Eos % (Auto) 5.2 % 07/29/24 04:26 Baso % (Auto) 1.5 % 07/29/24 04:26 Neut # (Auto) 2.94 10^3/uL (1.8-7.7) 07/29/24 04:26 Lymph # (Auto) 0.6 10^3/uL (0.8-4.8) L 07/29/24 04:26 [place] # (Auto) 0.7 10^3/uL (0.2-0.9) 07/29/24 04:26 Eos # (Auto) 0.2 10^3/uL (0.0-0.8) 07/29/24 04:26 Baso # (Auto) 0.1 10^3/uL (0.0-0.1) 07/29/24 04:26 Nucleated RBC % (auto) 0 % 07/29/24 04: Nucleated RBCs # 0.0 /100WBC 07/29/24 04:26 APTT > 250.0 SECONDS (23.9-36.7) H* D 07/28/24 18:22 Sodium 141 mmol/L (136-145) 07/29/24 04:26 Potassium 3.5 mmol/L (3.5-5.1) 07/29/24 04:26 Chloride 111 mmol/L (98-107) H 07/29/24 04:26 Carbon Dioxide 21 mmol/L (22-29) L 07/29/24 04:26 Anion Gap 12.5 (5-19) 07/29/24 04:26 BUN 10 mg/dL (8-23) 07/29/24 04:26 Creatinine 0.9 mg/dL (0.5-0.9) 07/29/24 04:26 GFR Calculation Not Reportable 07/29/24 04:26 Glucose 118 mg/dL (65-115) H 07/29/24 04:26 Estimat Average Glucose 114 07/27/24 10:29 Hemoglobin A1c 5.6 % (4.0-6.0) 07/27/24 10:29 Calculated Osmolality 292 mOsm/kg (285-295) 07/29/24 04:26 Calcium 7.7 mg/dL (8.5-10.5) L 07/29/24 04:26 Magnesium 1.7 mg/dL (1.7-2.3) 07/29/24 04:26 Total Bilirubin 0.3 mg/dL (0.15-1.2) 07/28/24 09:50 AST 11 U/L (0-32) 07/28/24 09:50 ALT < 5 U/L (0-33) 07/28/24 09:50 Alkaline Phosphatase 75 U/L (35-105) 07/28/24 09:50 Troponin T Baseline 23 ng/L (0-10) H 07/27/24 10:29 Troponin T 120 Minute 38.83 ng/L (0-10) H 07/27/24 13:13 Delta Troponin T 15.83 ABS# (0-10) H* 07/27/24 13:13 Troponin T Hi Sens 6Hr 29.54 ng/L (0-10) H 07/27/24 21:10 Troponin T Hi Sens 6Hr Delta 6.54 ng/L (0-12) 07/27/24 21:10 NT-Pro-B Natriuret Pep 275 pg/mL (0-450) 07/27/24 10:29 Total Protein 4.9 g/dL (6.6-8.7) L D 07/28/24 09:50 Albumin 2.8 g/dL (3.5-5.2) L 07/28/24 09:50 Globulin 2.1 g/dL (1.3-4.6) 07/28/24 09:50 Triglycerides 146 mg/dL (0-150) 07/27/24 10:29 Cholesterol 191 mg/dL (0-200) 07/27/24 10:29 LDL Cholesterol, Calc 124 mg/dL (50-129) 07/27/24 10:29 Total VLDL Cholesterol 29 mg/dL (0-30) 07/27/24 10:29 HDL Cholesterol 38 mg/dL (60-100) L 07/27/24 10:29 LDL/HDL Ratio 3.26 RATIO (0.00-3.22) H 07/27/24 10:29 Cholesterol/HDL Ratio 5.03 mg/dL (0.0-4.40) H 07/27/24 10:29 Procalcitonin 0.06 ng/mL (0-0.5) 07/27/24 10:29 TSH 0.44 uIU/mL (0.27-4.20) 07/27/24 10:29 Micro: Microbiology 07/27/24 09:50 Blood Culture - Preliminary Blood NEGATIVE TO DATE 07/27/24 21:10 Blood Culture - Preliminary Blood NEGATIVE TO DATE A&P Assessment and plan (1) Syncope: The patient has not any recurrence of syncope or symptomatic bradycardia during the hospital stay. At this point, patient may not require any further intervention. We may consider doing an event monitor as an outpatient Qualifiers: Syncope type: unspecified Qualified Code(s): R55 - Syncope and collapse (2) Benign hypertension: Currently normotensive. May continue on the current medications. (3) Elevated troponin: Most likely related to [id number] myocardial infarction. Patient had a Myocardial perfusion imaging today suggesting ischemia in the distribution of the left circumflex artery. Patient had a significant lesion in the circumflex artery for which she underwent PCI yesterday. Currently remaining stable. (4) Abnormal EKG: The poor R wave progression of the EKG could be related to the electrical rotation of the heart. She did not have any significant lesions in the left left anterior descending artery. Plan Since the patient continues to remain stable, may be discharged home today. She may be kept on the Plavix and aspirin and the other current medications. Will be seen in the [facility] in 1 week. I may see her in the office in [address] Xiao Kaminski 2 Medical Necessity Statement*: Possible discharge home today. Coding Level of Care Code 27631 Diagnoses Syncope, unspecified syncope type R55 Syncope type: unspecified Benign hypertension I10 Elevated troponin R79.89 Abnormal EKG R94.31
--- NOTE | 2024-07-29 10:46 | PM.DCS ---
Discharge Providers Date of Admission: 07/27/24 14:22 Date of Discharge: July 29, 2024 Attending Provider at Admission: Daylin Hagen MD Attending Provider at Discharge: Daylin Hagen MD Diagnoses at Discharge Discharge Diagnosis (1) Syncope: Status: Acute Qualifiers: Syncope type: unspecified Qualified Code(s): R55 - Syncope and collapse (2) Benign hypertension: Status: Acute (3) Elevated troponin: Status: Acute (4) Abnormal EKG: Status: Acute Reason for Visit Reason for Visit: rapid Discharge Data Studies Completed and Pending Completed Studies During Hospitalization Category Date Time Status CT cervical spin wo con* 00235 Stat Cat Scan 07/27/24 09:[address] head wo con* 64051 Stat Cat Scan 07/27/24 09:56 Completed Cardiac Stress Test MIBI [Sestamibi Stress Test Request Exams 07/27/24 21:30 Draft ] Routine NM jairo perf SPECT r/s* [id number] Routine Nuc Med 07/28/24 21:31 Completed CV. echo complete* [id number] Stat Ultrasound 07/27/24 14:49 Completed Pending at discharge Category Date Time Status [employer] request for service Routine Exams 07/28/24 16:00 Ordered Blood Culture Routine Lab 07/27/24 09:50 Results Platelet Count Q2D Lab 07/31/24 04:00 Ordered Radiology Impressions Cervical Spine CT 07/27/24 09:56 IMPRESSION: 1. No evidence of acute fracture or dislocation. 2. Partially visualized large RIGHT thyroid goiter with RIGHT to LEFT mass effect on the trachea. This could be followed up with ultrasound thyroid. This is unchanged since the recent PET/CT 06/02/[address] 07/27/24 09:56 IMPRESSION: 1. No evidence of intracranial hemorrhage or mass effect. 2. Moderate small vessel changes. Moderate parenchymal volume loss worse in the frontal lobes. 3. Arachnoid cyst LEFT middle cranial fossa. 4. Sphenoid and posterior ethmoid sinusitis with inspissated secretions. 5. No acute intracranial findings. Laboratory Results WBC 4.59 10^3/uL (3.29-11.43) 07/29/24 04:26 RBC 3.66 10^6/uL (3.85-5.65) L 07/29/24 04:26 Hgb 10.40 g/dL (11.27-16.99) L 07/29/24 04:26 Hct 32.8 % (36-47) L 07/29/24 04:26 MCV 89.6 fl (85-98) 07/29/24 04:26 MCH 28.4 pg (27-33) 07/29/24 04:26 MCHC 31.7 g/dL (30-55) 07/29/24 04:26 RDW 13.6 % (12.1-15.1) 07/29/24 04:26 Plt Count 187 10^3/cmm (157-399) 07/29/24 04:26 MPV 9.6 fL (7.4-10.4) 07/29/24 04:26 Neut % (Auto) 64.1 % 07/29/24 04:26 Lymph % (Auto) 13.3 % 07/29/24 04:26 [place] % (Auto) 15.5 % 07/29/24 04:26 Eos % (Auto) 5.2 % 07/29/24 04:26 Baso % (Auto) 1.5 % 07/29/24 04:26 Neut # (Auto) 2.94 10^3/uL (1.8-7.7) 07/29/24 04:26 Lymph # (Auto) 0.6 10^3/uL (0.8-4.8) L 07/29/24 04:26 [place] # (Auto) 0.7 10^3/uL (0.2-0.9) 07/29/24 04:26 Eos # (Auto) 0.2 10^3/uL (0.0-0.8) 07/29/24 04:26 Baso # (Auto) 0.1 10^3/uL (0.0-0.1) 07/29/24 04:26 Nucleated RBC % (auto) 0 % 07/29/24 04: Nucleated RBCs # 0.0 /100WBC 07/29/24 04:26 APTT > 250.0 SECONDS (23.9-36.7) H* D 07/28/24 18:22 Sodium 141 mmol/L (136-145) 07/29/24 04:26 Potassium 3.5 mmol/L (3.5-5.1) 07/29/24 04:26 Chloride 111 mmol/L (98-107) H 07/29/24 04:26 Carbon Dioxide 21 mmol/L (22-29) L 07/29/24 04:26 Anion Gap 12.5 (5-19) 07/29/24 04:26 BUN 10 mg/dL (8-23) 07/29/24 04:26 Creatinine 0.9 mg/dL (0.5-0.9) 07/29/24 04:26 GFR Calculation Not Reportable 07/29/24 04:26 Glucose 118 mg/dL (65-115) H 07/29/24 04:26 Estimat Average Glucose 114 07/27/24 10:29 Hemoglobin A1c 5.6 % (4.0-6.0) 07/27/24 10:29 Calculated Osmolality 292 mOsm/kg (285-295) 07/29/24 04:26 Calcium 7.7 mg/dL (8.5-10.5) L 07/29/24 04:26 Magnesium 1.7 mg/dL (1.7-2.3) 07/29/24 04:26 Total Bilirubin 0.3 mg/dL (0.15-1.2) 07/28/24 09:50 AST 11 U/L (0-32) 07/28/24 09:50 ALT < 5 U/L (0-33) 07/28/24 09:50 Alkaline Phosphatase 75 U/L (35-105) 07/28/24 09:50 Troponin T Baseline 23 ng/L (0-10) H 07/27/24 10:29 Troponin T 120 Minute 38.83 ng/L (0-10) H 07/27/24 13:13 Delta Troponin T 15.83 ABS# (0-10) H* 07/27/24 13:13 Troponin T Hi Sens 6Hr 29.54 ng/L (0-10) H 07/27/24 21:10 Troponin T Hi Sens 6Hr Delta 6.54 ng/L (0-12) 07/27/24 21:10 NT-Pro-B Natriuret Pep 275 pg/mL (0-450) 07/27/24 10:29 Total Protein 4.9 g/dL (6.6-8.7) L D 07/28/24 09:50 Albumin 2.8 g/dL (3.5-5.2) L 07/28/24 09:50 Globulin 2.1 g/dL (1.3-4.6) 07/28/24 09:50 Triglycerides 146 mg/dL (0-150) 07/27/24 10:29 Cholesterol 191 mg/dL (0-200) 07/27/24 10:29 LDL Cholesterol, Calc 124 mg/dL (50-129) 07/27/24 10:29 Total VLDL Cholesterol 29 mg/dL (0-30) 07/27/24 10:29 HDL Cholesterol 38 mg/dL (60-100) L 07/27/24 10:29 LDL/HDL Ratio 3.26 RATIO (0.00-3.22) H 07/27/24 10: Cholesterol/HDL Ratio 5.03 mg/dL (0.0-4.40) H 07/27/24 10:29 Procalcitonin 0.06 ng/mL (0-0.5) 07/27/24 10: TSH 0.44 uIU/mL (0.27-4.20) 07/27/24 10:29 Vitals Last Vital Signs Temp 98.0 F 07/29/24 08:00 Pulse 75 07/29/24 08:00 Resp 14 07/29/24 08:00 BP 128/49 07/29/24 08:00 Pulse Ox 95 07/29/24 08:00 O2 Del Method Room Air 07/29/24 08:00 Discharge Plan Discharge Patient Disposition: Home Condition: Stable Prescriptions: New atorvastatin 40 mg Tablet 80 mg PO BEDTIME Qty: 60 0RF pantoprazole 40 mg Tablet,Delayed Release (Dr/Ec) 40 mg PO DAILY Qty: 30 0RF metoprolol succinate [Toprol XL] 25 mg tablet extended release 24 hr 25 mg PO DAILY Qty: 30 0RF potassium chloride 10 mEq capsule, extended release 10 meq PO DAILY PRN (Reason: hypokalemia) Qty: 30 0RF Rx Instructions: take 1 tablet the day you take torsemide aspirin 81 mg Tablet,Delayed Release (Dr/Ec) 81 mg PO DAILY Qty: 30 0RF clopidogrel 75 mg Tablet 75 mg PO DAILY Qty: 30 0RF Continued hydroxyzine HCl 10 mg tablet 10 mg PO TID PRN (Reason: Anxiety) torsemide 20 mg tablet 20 mg PO DAILY PRN (Reason: Edema) lidocaine-prilocaine 2.5-2.5 % cream 1 applic topical .COMPLEX Qty: 30 2RF Rx Instructions: Apply quarter-size amount to port site 30 minutes prior to access; cover with cling wrap alectinib 150 mg capsule 600 mg PO BID Qty: 60 3RF Rx Instructions: must administer with a meal/food aspirin 81 mg Capsule 81 mg PO DAILY Discontinued spironolactone 25 mg tablet 25 mg PO DAILY carvedilol 25 mg tablet 25 mg PO BID Discharge Orders: Discharge Order (Routine); Ordered 07/29/24 Ordered By: Daylin Hagen Referrals: Mary Jo Westbrook NP [Nurse Practitioner] - 7-10 days Katlyn Pack MD [Physician] - 1 month Damian Rodriguez RN [Emergency Nurse] - 4-7 days Discharge Diet: Cardiac Discharge Activity: Resume usual activity and Limit activity as instructed Patient Instructions: Opioid Safety Coding Level of Care Code Acute Code for Chg Fwd Diagnoses Syncope, unspecified syncope type R55 Syncope type: unspecified Benign hypertension I10 Elevated troponin R79.89 Abnormal EKG R94.31
--- NOTE | 2024-07-29 11:08 | PC.NURSE ---
Patient got up and dresses for discharge prior to MD's seeing her. This RN quickly informed Dr Hagen and Dr Pack. Received ok to remove IV access. Notified patient's son Willem. Son arrived. Patient has been discharged to home. Instruction provided to patient and son on importance of new medications with changes to old, follow up needs and post [facility] site care and restrictions. Both son and patient verbalized complete understanding. Son informed this RN that he manages all her meds and appointments. Dressing to right wrist remains c,d,i without s/s of bleeding or hematoma formation observed. Patient left ambulatory per her insistance with son at side.
== END 2024-07-29 11:17 | disposition home or self-care (01) | DRG 322 ==
LOC: ER 13:52 → CSU 14:23
PROVIDERS: Internal Medicine Cardiovascular Disease; Admitting Provider Internal Medicine; Emergency Provider Family Medicine; Visit Provider Internal Medicine
DX: I21.4 Non-ST elevation (NSTEMI) myocardial infarction (principal); C79.51 Secondary malignant neoplasm of bone; I42.9 Cardiomyopathy, unspecified; R55 Syncope and collapse; I10 Essential (primary) hypertension; R94.31 Abnormal electrocardiogram [ECG] [EKG]; C80.1 Malignant (primary) neoplasm, unspecified; Z79.82 Long term (current) use of aspirin; Z87.891 Personal history of nicotine dependence
CPT/HCPCS: 36415; 70450; 72125; 78452; 80048; 80053; 80061; 83036; 83735; 83880; 84145; 84443; 84484; 85025; 85730; 87040; 93005; 93010; 93017; 93306; 96365; 96375; 96376; 99223; 99232; 99233; 99254; 99285; A9500; J1644; J2250; J2405; J2785; J3010; J3490; J7030

== ENCOUNTER 2024-08-03 09:41 | Outpatient (CLI) | payer MEDICARE, SELFPAY ==
--- NOTE | 2024-08-03 09:57 | MM_ITS ---
WS: [id number] BILATERAL 3D TOMOSYNTHESIS DIGITAL DIAGNOSTIC MAMMOGRAPHY WITH CAD CLINICAL INFORMATION: MASS OF LEFT BREAST HISTORY: 8 mm breast nodule on recent PET/CT COMPARISON: Outside PET/CT 06/02/2024 TECHNIQUE: Bilateral CC, MLO, and ML views. FINDINGS: Scattered fibroglandular densities bilaterally. Irregular asymmetric density 12:00 LEFT breast anteri carlos. A few additional ovoid nodular densities outer LEFT breast. Ultrasound LEFT breast is pending. ULTRASOUND BREAST LEFT TECHNIQUE: Ultrasound left breast focused area of concern. CLINICAL INFORMATION: MASS OF LEFT BREAST FINDINGS: Ultrasound LEFT breast upper outer quadrant. At the 12 o'clock position, 5 cm from the nipple, is an irregular lobulated hypoechoic superficial shadowing lesion likely corresponding to the PET/CT findin gs measuring 6 x 7 x 7 mm. This lesion has a suspicious appearance and recommend further evaluation w ith ultrasound-guided biopsy. Small cyst at the 3 o'clock position measuring 5 mm. MM/MM diag BI tomosynthesis [id number] IMPRESSION: DENSITY: There are scattered areas of fibroglandular density. BI-RADS: 4 - Suspicious Finding - Biopsy Should Be Considered. FOLLOW UP: US Guided Biopsy Recommended Recommend ultrasound-guided biopsy of the LEFT breast lesion
== END 2024-08-03 09:42 | disposition home or self-care (01) ==
LOC: RAD 09:43
PROVIDERS: PCP Family Medicine; Visit Provider Family Medicine
DX: N63.21 Unspecified lump in the left breast, upper outer quadrant (principal); N63.42 Unspecified lump in left breast, subareolar; R92.323 Mammographic fibroglandular density, bilateral breasts; N64.89 Other specified disorders of breast; N60.02 Solitary cyst of left breast
CPT/HCPCS: 76642; 77062; G0279

== ENCOUNTER 2024-08-08 16:35 | Emergency (ER) | payer MEDICARE, SELFPAY ==
[2024-08-08 16:40] VITALS: BP 119/49; PULSE 75; RESP 16; TEMP 36.6; O2SAT 97; BMI 23.1
[2024-08-08 17:16] LABS: Basophils # 0.1 10^3/uL (0.0-0.1); Basophils % 1.1 %; Eosinophils # 0.2 10^3/uL (0.0-0.8); Eosinophils % 2.4 %; Hematocrit 36.6 % (36-47); Lymphocytes # 0.7 10^3/uL (0.8-4.8); Lymphocytes % 8.7 %; Mean Corpuscular HGB Conc 32.5 g/dL (30-55); Mean Corpuscular Hemoglobin 27.9 pg (27-33); Mean Corpuscular Volume 85.9 fl (85-98); Mean Platelet Volume 9.9 fL (7.4-10.4); Monocytes # 0.9 10^3/uL (0.2-0.9); Monocytes % 11.7 %; Neutrophils # 5.89 10^3/uL (1.8-7.7); Neutrophils % 75.3 %; Nucleated Red Blood Cells % 0 %; Platelet Count 336 10^3/cmm (157-399); Red Blood Count 4.26 10^6/uL (3.85-5.65); Red Cell Distribution Width 13.8 % (12.1-15.1); White Blood Count 7.83 10^3/uL (3.29-11.43)
[2024-08-08 17:37] LABS: Alanine Aminotransferase 8 U/L (0-33); Albumin Level 3.3 g/dL (3.5-5.2); Alkaline Phosphatase 86 U/L (35-105); Aspartate Amino Transferase 16 U/L (0-32); Blood Urea Nitrogen 31 mg/dL (8-23); Calcium 8.2 mg/dL (8.5-10.5); Carbon Dioxide 24 mmol/L (22-29); Chloride 102 mmol/L (98-107); Creatinine Clr Calc Pharmacy 30.6361; Globulin 2.8 g/dL (1.3-4.6); Glucose 83 mg/dL (65-115); Osmolality Calculated 292 mOsm/kg (285-295); Sodium 138 mmol/L (136-145); Total Bilirubin 0.6 mg/dL (0.15-1.2); Total Protein 6.1 g/dL (6.6-8.7)
[2024-08-08 17:45] LABS: Anion Gap 15.8 (5-19); Potassium 3.8 mmol/L (3.5-5.1)
[2024-08-08 17:51] LABS: Add Urine Microscopic? NO
[2024-08-08 18:05] VITALS: BP 111/72; PULSE 100; O2SAT 96
--- NOTE | 2024-08-08 18:20 | W.ED.FEMALGU ---
HPI - Female Genitourinary General: Chief complaint: Urogenital-Female Stated complaint: bleeding, sent by oncology Time Seen by Provider: 08/08/24 17:09 Source: patient and family Mode of arrival: ambulatory Limitations: no limitations History of Present Illness: Patient is a 79-year-old female presents the emergency department with hematuria for the past 4 days. Was sent over by heme-onc where she was having potassium infusion due to hypokalemia from labs yesterday, also recently diagnosed with right clavicular mass that is likely to be non-small cell carcinoma after reviewing her heme-onc visits. She recently had a stent placed on the fourth, started on the Plavix went 5 days without any bleeding but has noticed the bleeding with past for days. She is not having any fevers, lightheadedness or dizziness, pain, or other symptoms. States that she was going to follow-up with her flexographic press plate setter, however he is on vacation and they are unable to see them until early next week. She is adamant that she wants to leave after my examination, vital stable in triage and at my time of examination. She is not having any burning with urination or other urinary symptoms aside from hematuria. Reviewing heme-onc note, appears that her urine initially was bright red has been slowly getting more pinkish in color. Urine here in the emergency department was reddish-brown. elicited complaint: other (Hematuria) Onset (ago): day(s) Severity: moderate Consistency: constant and improved Vaginal discharge: none Urinary symptoms: Hematuria Associated symptoms: Reports no associated symptoms; Deny abdominal pain, headache(s) or nausea Related Data Home Medications Medication Instructions Recorded Confirmed hydroxyzine HCl 10 mg tablet 10 mg PO TID PRN Anxiety 07/03/24 08/07/24 torsemide 20 mg tablet 20 mg PO DAILY PRN Edema 07/03/24 08/07/24 aspirin 81 mg capsule 81 mg PO DAILY 07/27/24 08/07/24 Previous Rx's Medication Instructions Recorded lidocaine-prilocaine 2.5 %-2.5 % 1 applic topical .COMPLEX #30 grams 07/03/24 topical cream alectinib 150 mg capsule 600 mg (4 x 150 mg) PO BID #60 caps 07/24/24 aspirin 81 mg tablet,delayed 81 mg PO DAILY #30 tabs 07/29/24 release atorvastatin 40 mg tablet 80 mg (2 x 40 mg) PO BEDTIME #60 07/29/24 tabs clopidogrel 75 mg tablet 75 mg PO DAILY #30 tabs 07/29/24 metoprolol succinate 25 mg 25 mg PO DAILY #30 tabs 07/29/24 tablet,extended release 24 hr (Toprol XL) pantoprazole 40 mg tablet,delayed 40 mg PO DAILY #30 tabs 07/29/24 release potassium chloride 10 mEq 10 meq PO DAILY PRN hypokalemia 07/29/24 capsule,extended release #30 caps cefdinir 300 mg capsule 300 mg PO BID 10 days #20 caps 08/08/24 Allergies Allergy/AdvReac Type Severity Reaction Status Date / Time No Known Allergies Allergy Verified 08/08/24 16:48 Review of Systems General: Reports: 10 or more systems reviewed and unremarkable except in HPI and below Const: Denies: fever(s), chills, change in appetite, change in weight or diaphoresis ENMT: Denies: throat pain or hoarseness Card: Denies: chest pain, palpitations or lightheadedness Resp: Denies: dyspnea, productive cough or wheezing GI: Denies: abdominal pain, nausea, vomiting, diarrhea, constipation, bloating, change in stool character or hematochezia : Reports: hematuria; Denies: flank pain, difficulty voiding, dysuria, urinary frequency or urinary urgency Musc: Denies: neck pain or back pain Skin/Breast: Denies: rash or new lesions Neuro: Denies: headache(s) or dizziness PFSH ED PFSH: Social History Smoking and tobacco/nicotine status: former use of tobacco/nicotine Physical Exam Const: COMMON NORMALS: no acute distress, average body habitus, no limitations, healthy appearing and well nourished GENERAL APPEARANCE: cooperative and comfortable ORIENTATION/CONSCIOUSNESS: Yes awake HENMT: COMMON NORMALS: normocephalic, atraumatic, hearing grossly normal bilaterally, external ears normal, Normal external nose present and Normal nasal mucous membranes and turbinates present HEAD & SCALP: normocephalic and atraumatic NOSE: Normal external nose present and Normal nasal mucous membranes and turbinates present EXTERNAL EAR: Yes external ears normal OTHER: Dry oral mucosa Eye: COMMON NORMALS: EOMs intact bilaterally and conjunctivae normal CONJUNCTIVA: Yes conjunctivae normal Neck/C-Spine: COMMON NORMALS: full ROM, supple and no JVD Chest: OTHER: Prominent right clavicular mass Resp: COMMON NORMALS: normal respiratory effort, No retractions, No use of accessory muscles and clear to auscultation bilaterally AUSCULTATION: clear to auscultation bilaterally, no crackles, no rales, no rhonchi and no wheezes Cardio: COMMON NORMALS: no JVD, regular rate, regular rhythm, S1 normal heart sound present, S2 normal heart sound present, No gallops present (Cardio), No clicks present (Cardio), No murmurs present (Cardio), No rub (Cardio) and Peripheral pulses 2+ throughout RATE: regular rate RHYTHM: regular rhythm HEART SOUNDS: S1 normal heart sound present and S2 normal heart sound present PERIPHERAL PULSES: Peripheral pulses 2+ throughout GI: COMMON NORMALS: Normal to inspection, nondistended, normoactive bowel sounds present, Soft to palpation, non-tender, No hepatosplenomegaly present and no masses AUSCULTATION: Yes normoactive bowel sounds PALPATION: Yes Soft to palpation, No Guarding due to palpation present (GI), No Rigid due to palpation and Yes No hepatosplenomegaly present RECTAL EXAM: deferred Extremity: COMMON NORMALS: normal to inspection and full ROM Psych: COMMON NORMALS: mental status grossly normal, cooperative and speech normal SPEECH: Yes normal speech Skin: COMMON NORMALS: no rashes or lesions noted GENERAL SKIN EXAM: no rashes or lesions noted Course Vital Signs: Vital signs: Vital Signs Temperature 97.9 F 08/08/24 16:40 Pulse Rate 100 08/08/24 18:05 Respiratory Rate 16 08/08/24 16:40 Blood Pressure 111/72 08/08/24 18:05 Pulse Oximetry 96 08/08/24 18:05 Oxygen Delivery Me thod Room Air 08/08/24 18:05 MDM - Female Medical Decision Making Patient had presented with hematuria for the past 4 days, started on Plavix greater than a week ago after having cardiac stent placed with Dr. Boyer. Today she was being seen at heme-onc for infusion of potassium chloride due to low potassium, sent over due to the hematuria. At time my examination she was already wanting to leave, did not want to be here. Did recheck some labs that showed hemoglobin within normal limits, potassium that had been brought up to normal level 3.8, and decreasing creatinine and BUN. Her blood pressure has been trending down here, but when I offered her further workup and fluids she is adamant that she wants to leave. I did speak with Dr. Sewell, tractor operator laser leveling, who had stated to continue the Plavix as this is important to avoid clot with the stent, can stop the aspirin to help with the hematuria. Urinalysis is still pending at this time, patient and family would like to be called with any abnormal results. Multiple times offered IV fluids and further assessment but every time was adamant that they wanted to be discharged. Will go ahead and refer her to urology for potential cystoscopy. They did state they will come back if there is any worsening such as fevers, pain, worsening bleeding, or worsening dizziness. I did discuss this case with Dr. Chaves here in the emergency department. Patient has follow-up with the flexographic press plate setter early next week, will continue follow-ups with heme-onc as well. Medical Records I reviewed the patient's medical records. Lab Data I reviewed the patient's lab results. 08/08/24 17:10 08/08/24 17:10 Laboratory Results WBC 7.83 10^3/uL (3.29-11.43) 08/08/24 17:10 RBC 4.26 10^6/uL (3.85-5.65) 08/08/24 17:10 Hgb 11.90 g/dL (11.27-16.99) 08/08/24 17:10 Hct 36.6 % (36-47) 08/08/24 17:10 MCV 85.9 fl (85-98) 08/08/24 17:10 MCH 27.9 pg (27-33) 08/08/24 17:10 MCHC 32.5 g/dL (30-55) 08/08/24 17:10 RDW 13.8 % (12.1-15.1) 08/08/24 17:10 Plt Count 336 10^3/cmm (157-399) 08/08/24 17:10 MPV 9.9 fL (7.4-10.4) 08/08/24 17:10 Neut % (Auto) 75.3 % 08/08/24 17:10 Lymph % (Auto) 8.7 % 08/08/24 17:10 Bowman % (Auto) 11.7 % 08/08/24 17:10 Eos % (Auto) 2.4 % 08/08/24 17:10 Baso % (Auto) 1.1 % 08/08/24 17:10 Neut # (Auto) 5.89 10^3/uL (1.8-7.7) 08/08/24 17:10 Lymph # (Auto) 0.7 10^3/uL (0.8-4.8) L 08/08/24 17:10 Bowman # (Auto) 0.9 10^3/uL (0.2-0.9) 08/08/24 17:10 Eos # (Auto) 0.2 10^3/uL (0.0-0.8) 08/08/24 17:10 Baso # (Auto) 0.1 10^3/uL (0.0-0.1) 08/08/24 17:10 Nucleated RBC % (auto) 0 % 08/08/24 17:10 Nucleated RBCs # 0.0 /100WBC 08/08/24 17:10 Sodium 138 mmol/L (136-145) 08/08/24 17:10 Potassium 3.8 mmol/L (3.5-5.1) 08/08/24 17:10 Chloride 102 mmol/L (98-107) 08/08/24 17:10 Carbon Dioxide 24 mmol/L (22-29) 08/08/24 17:10 Anion Gap 15.8 (5-19) 08/08/24 17:10 BUN 31 mg/dL (8-23) H 08/08/24 17:10 Creatinine 1.5 mg/dL (0.5-0.9) H 08/08/24 17:10 GFR Calculation Not Reportable 08/08/24 17:10 Glucose 83 mg/dL (65-115) 08/08/24 17:10 Calculated Osmolality 292 mOsm/kg (285-295) 08/08/24 17:10 Calcium 8.2 mg/dL (8.5-10.5) L 08/08/24 17:10 Magnesium 2.0 mg/dL (1.7-2.3) 08/08/24 17:10 Total Bilirubin 0.6 mg/dL (0.15-1.2) 08/08/24 17:10 AST 16 U/L (0-32) 08/08/24 17:10 ALT 8 U/L (0-33) 08/08/24 17:10 Alkaline Phosphatase 86 U/L (35-105) 08/08/24 17:10 Total Protein 6.1 g/dL (6.6-8.7) L 08/08/24 17:10 Albumin 3.3 g/dL (3.5-5.2) L 08/08/24 17:10 Globulin 2.8 g/dL (1.3-4.6) 08/08/24 17:10 Urine Color Other (Yellow) A 08/08/24 17:24 Urine Appearance Turbid (CLEAR) A 08/08/24 17:24 Urine pH Not Reportable 08/08/24 17:24 Ur Specific [place] Not Reportable 08/08/24 17:24 Urine Protein Not Reportable 08/08/24 17:24 Urine Glucose (UA) Not Reportable 08/08/24 17:24 Urine Ketones Not Reportable 08/08/24 17:24 Urine Blood Not Reportable 08/08/24 17:24 Urine Nitrate Not Reportable 08/08/24 17:24 Urine Bilirubin Not Reportable 08/08/24 17:24 Urine Urobilinogen Not Reportable 08/08/24 17:24 Ur Leukocyte Esterase Not Reportable 08/08/24 17:24 Urine RBC Too numerous to cnt /hpf (0-2) H 08/08/24 17:24 Urine WBC 55-80 /hpf (0-5) H 08/08/24 17:24 Ur Squamous Epith Cells 0-4 /hpf (0-5) H 08/08/24 17:24 Amorphous Sediment Not Reportable 08/08/24 17:24 Urine Bacteria Trace /hpf (NONE) 08/08/24 17:24 No radiology studies performed this visit Discharge Plan Discharge Patient Disposition: Home Clinical Impression: Hematuria Qualifiers: Hematuria type: unspecified type Qualified Code(s): R31.9 - Hematuria, unspecified Hypotension Qualifiers: Hypotension type: unspecified hypotension type Qualified Code(s): I95.9 - Hypotension, unspecified Urinary tract infection Qualifiers: Urinary tract infection type: acute cystitis Hematuria presence: with hematuria Qualified Code(s): N30.01 - Acute cystitis with hematuria Condition: Stable Prescriptions: New cefdinir 300 mg capsule 300 mg PO BID 10 Days Qty: 20 0RF No Action hydroxyzine HCl 10 mg tablet 10 mg PO TID PRN (Reason: Anxiety) torsemide 20 mg tablet 20 mg PO DAILY PRN (Reason: Edema) lidocaine-prilocaine 2.5-2.5 % cream 1 applic topical .COMPLEX Qty: 30 2RF Rx Instructions: Apply quarter-size amount to port site 30 minutes prior to access; cover with cling wrap alectinib 150 mg capsule 600 mg PO BID Qty: 60 3RF Rx Instructions: must administer with a meal/food aspirin 81 mg Capsule 81 mg PO DAILY atorvastatin 40 mg Tablet 80 mg PO BEDTIME Qty: 60 0RF clopidogrel 75 mg Tablet 75 mg PO DAILY Qty: 30 0RF aspirin 81 mg Tablet,Delayed Release (Dr/Ec) 81 mg PO DAILY Qty: 30 0RF pantoprazole 40 mg Tablet,Delayed Release (Dr/Ec) 40 mg PO DAILY Qty: 30 0RF metoprolol succinate [Toprol XL] 25 mg tablet extended release 24 hr 25 mg PO DAILY Qty: 30 0RF potassium chloride 10 mEq capsule, extended release 10 meq PO DAILY PRN (Reason: hypokalemia) Qty: 30 0RF Rx Instructions: take 1 tablet the day you take torsemide Discharge Orders: Discharge ED (Routine); Ordered 08/08/24 Ordered By: Jose Francisco Lewis Referrals: Shiva Lara [Primary Care Provider] - Patient Instructions: Clopidogrel (By mouth) (Plavix), Hematuria (ED) Activity Restrictions/Additional Instructions: Please stop taking the aspirin as instructed, continue taking Plavix. Please drink plenty of fluids. Follow-up with your flexographic press plate setter as planned. Also continue follow-up with heme-onc. Please return with any worsening of bleeding, fevers, pain, dizziness, or other concerning symptoms. Coding Level of Care Code ED Furnace Combustion Analyst for Niranjan Duran
[2024-08-08 18:21] LABS: Urine Color Other (Yellow)
[2024-08-08 18:22] LABS: Add Urine Culture? Yes; Bacteria Urine TRACE /hpf; RBC Urine TOO NUMEROUS TO CNT /hpf (0-2); Squamous Epithelial Cell Urine 0-4 /hpf (0-5); WBC Urine 55-80 /hpf (0-5)
[2024-08-08 18:24] LABS: Urine Appearance Turbid (CLEAR)
[2024-08-08 18:25] LABS: Charge for UA Resulting for Rev
[2024-08-08 18:32] VITALS: BP 96/82; PULSE 100; O2SAT 95
== END 2024-08-08 18:35 | disposition home or self-care (01) ==
PROVIDERS: Emergency Medicine; Emergency Provider Physician Assistant; PCP Family Medicine
DX: N30.01 Acute cystitis with hematuria (principal); I95.9 Hypotension, unspecified; Z79.82 Long term (current) use of aspirin; Z87.891 Personal history of nicotine dependence
CPT/HCPCS: 80053; 81003; 83735; 85025; 87086; 99283

== ENCOUNTER 2024-08-23 10:34 | Oncology outpatient (recurring) (ONCR) | payer MEDICARE, SELFPAY ==
--- NOTE | 2024-08-03 08:53 | N.ONRD TS_ITS ---
Radiation Oncology Treatment Summary Patient: Zee>Isak MR#: [id number] : 1945> Age: 79> Sex: Female Dictated by: Dr. Bernadette Guzman Date of Service: 08/02/2024 Referring Physician(s) : Diagnosis: C79.51 - Secondary malignant neoplasm of bone, Diagnosed 07/04/2024 (Active) Radiotherapy to Date: Course: R clavicle, Treatment Site: RT [id number], Ref. ID: [id number], Energy: 15X/6X, Dose/Fx (cGy): 300, #Fx: , Dose Correction (cGy): 0, Total Dose Delivered (cGy): 3,000, Start Date: 07/07/2024, End Date: 08/02/2024, Elapsed Days: 26 Clinical Summary: The patient tolerated RT well. She had an excellent response to treatment with resolution of the mass and the swelling. Plan: End of treatment today. Continue on the above medication until the skin reaction resolves. Follow up in two weeks. Signed by: Dr. Bernadette Guzman>08/03/2024 8:51:47 AM <<Signature on File>>
[2024-08-07 16:37] LABS: Add Urine Microscopic? NO
[2024-08-07 16:49] LABS: Basophils # 0.1 10^3/uL (0.0-0.1); Eosinophils # 0.2 10^3/uL (0.0-0.8); Eosinophils % 1.8 %; Lymphocytes # 0.7 10^3/uL (0.8-4.8); Lymphocytes % 6.2 %; Mean Corpuscular HGB Conc 32.3 g/dL (30-55); Mean Corpuscular Hemoglobin 27.7 pg (27-33); Mean Corpuscular Volume 85.8 fl (85-98); Mean Platelet Volume 10.3 fL (7.4-10.4); Monocytes # 1.1 10^3/uL (0.2-0.9); Monocytes % 10.5 %; Neutrophils # 8.57 10^3/uL (1.8-7.7); Neutrophils % 79.8 %; Nucleated Red Blood Cells % 0 %; Platelet Count 403 10^3/cmm (157-399); Red Blood Count 5.01 10^6/uL (3.85-5.65); Red Cell Distribution Width 13.7 % (12.1-15.1); White Blood Count 10.75 10^3/uL (3.29-11.43)
[2024-08-07 17:06] LABS: Bacteria Urine TRACE /hpf; RBC Urine TOO NUMEROUS TO CNT /hpf (0-2); Squamous Epithelial Cell Urine 0-4 /hpf (0-5); Urine Appearance Turbid (CLEAR); Urine Color Red (Yellow); WBC Urine 15-25 /hpf (0-5)
[2024-08-07 17:07] LABS: Add Urine Culture? Yes; Charge for UA Resulting for Rev
[2024-08-07 17:17] LABS: Alanine Aminotransferase 9 U/L (0-33); Albumin Level 4.2 g/dL (3.5-5.2); Alkaline Phosphatase 103 U/L (35-105); Anion Gap 20.9 (5-19); Aspartate Amino Transferase 18 U/L (0-32); Blood Urea Nitrogen 30 mg/dL (8-23); Calcium 9.3 mg/dL (8.5-10.5); Carbon Dioxide 27 mmol/L (22-29); Chloride 95 mmol/L (98-107); Creatinine Clr Calc Pharmacy 26.4472; Ferritin 186 ng/mL (15-150); Globulin 3.5 g/dL (1.3-4.6); Glucose 105 mg/dL (65-115); Iron 48 ug/dL (37-145); Osmolality Calculated 297 mOsm/kg (285-295); Percent Saturation 17.4 % (20-50); Sodium 140 mmol/L (136-145); Total Bilirubin 0.8 mg/dL (0.15-1.2); Total Iron Binding Capacity 275 mcg/dl; Total Protein 7.7 g/dL (6.6-8.7); Unsaturated Iron Binding 227 ug/dL (112-347)
[2024-08-07 18:29] LABS: Potassium 2.9 mmol/L (3.5-5.1)
[2024-08-08] MEDS: sodium chlor 0.9% + KCl 40 mEq 40 MEQ/1,000 ML BAG 250 MEQ IV (13:53)
--- NOTE | 2024-08-08 17:01 | PC.NURSE ---
Per Jovan Frazier NP, pt was taken to ER for gross hematuria and low potassium. Pt taken to ER in wheel chair, sent with 40mg of potassium that was currently infusing.
[2024-08-16 16:02] LABS: Basophils # 0.1 10^3/uL (0.0-0.1); Basophils % 1.4 %; Eosinophils # 0.3 10^3/uL (0.0-0.8); Eosinophils % 3.7 %; Hematocrit 40.6 % (36-47); Lymphocytes # 0.7 10^3/uL (0.8-4.8); Lymphocytes % 9.5 %; Mean Corpuscular HGB Conc 31.5 g/dL (30-55); Mean Corpuscular Hemoglobin 27.6 pg (27-33); Mean Corpuscular Volume 87.7 fl (85-98); Mean Platelet Volume 10.1 fL (7.4-10.4); Monocytes # 0.9 10^3/uL (0.2-0.9); Monocytes % 11.8 %; Neutrophils # 5.36 10^3/uL (1.8-7.7); Neutrophils % 72.9 %; Nucleated Red Blood Cells % 0 %; Platelet Count 339 10^3/cmm (157-399); Red Blood Count 4.63 10^6/uL (3.85-5.65); Red Cell Distribution Width 14.2 % (12.1-15.1); White Blood Count 7.35 10^3/uL (3.29-11.43)
[2024-08-16 16:32] LABS: Alanine Aminotransferase 11 U/L (0-33); Albumin Level 3.7 g/dL (3.5-5.2); Alkaline Phosphatase 118 U/L (35-105); Anion Gap 18.4 (5-19); Aspartate Amino Transferase 18 U/L (0-32); Blood Urea Nitrogen 16 mg/dL (8-23); Calcium 8.9 mg/dL (8.5-10.5); Carbon Dioxide 23 mmol/L (22-29); Chloride 100 mmol/L (98-107); Creatinine Clr Calc Pharmacy 37.4669; Globulin 2.7 g/dL (1.3-4.6); Glucose 86 mg/dL (65-115); Osmolality Calculated 286 mOsm/kg (285-295); Potassium 3.4 mmol/L (3.5-5.1); Sodium 138 mmol/L (136-145); Thyroid Stimulating Hormone 0.27 uIU/mL (0.27-4.20); Total Bilirubin 0.6 mg/dL (0.15-1.2); Total Protein 6.4 g/dL (6.6-8.7)
== END 2024-08-25 23:59 | disposition home or self-care (01) ==
PROVIDERS: Internal Medicine Medical Oncology; Nurse Practitioner Family; Visit Provider Radiology Radiation Oncology
DX: Z87.891 Personal history of nicotine dependence; C79.51 Secondary malignant neoplasm of bone; Z92.3 Personal history of irradiation; C34.31 Malignant neoplasm of lower lobe, right bronchus or lung; N63.20 Unspecified lump in the left breast, unspecified quadrant
CPT/HCPCS: 36415; 77336; 77386; 77387; 77412; 80053; 81003; 82728; 83540; 83550; 84443; 85025; 87086; 99024; 99213; 99214

== ENCOUNTER 2024-09-19 10:39 | Oncology outpatient (recurring) (ONCR) | payer MEDICARE, SELFPAY ==
--- NOTE | 2024-08-29 12:00 | CT_ITS ---
WS: [id number] CT CHEST, ABDOMEN AND PELVIS WITH CONTRAST HISTORY: lung cancer metastatic to bone TECHNIQUE: Contiguous 5 mm axial imaging performed through the chest, abdomen and pelvis with IV contrast, oral contrast has been provided. Coronal and sagittal reformats chest. Coronal and sagittal reformats through the abdomen and pelvis. All CT scans at [facility] use at least one of these dose optimization techniques: automated exposure control; mA and/or kV adjustment per patient size (includes targeted exams where dose is matched to clinical indication); or iterative reconstruction. CONTRAST: Omnipaque 350; 100 mL IV. DLP: 723.88 mGy.cm COMPARISON: PET/CT 06/02/2024, chest CT 05/09/[address]: Large soft tissue mass in the anterior RIGHT chest wall encases the medial RIGHT clavicular head. Mass in its entirety measures 8.0 x 5.2 x 7.2 cm. Encasement of the clavicular head with soft tissue extending posterior to the clavicular head. Mass involves the pectoralis muscle. Marked enlargement of the RIGHT pectoralis muscle due to tumor extension. There is also surrounding soft tissue reticulation which may be edema or tumor infiltration. Loss of the normal cortex of the medial RIGHT humeral head consistent with osseous destruction. RIGHT thyroid nodule measures 2.9 x 4.4 cm. LEFT breast superficial mass 7 mm. Noted to be positive on PET/CT imaging. Mildly hyperexpanded lungs with peripheral mild pulmonary fibrosis. No pulmonary nodule or mass. No pericardial or pleural effusions. Heart size is normal. No mediastinal or hilar adenopathy. Mild atherosclerosis aorta. Normal pulmonary artery. Small hiatal hernia. Abdomen CT: Normal size liver with multiple low-attenuation masses consistent with cysts. The largest in the LEFT lobe measures 3.7 x 3.4 cm. No metastatic lesions are identified in the liver. Gallbladder is slightly contracted and contains a stone. Mild diffuse pancreatic atrophy with no duct dilatation. Mildly lobulated spleen with granulomata. No adrenal mass. Mild RIGHT renal atrophy with cysts. No obstruction. Nonobstructing central calcification. LEFT kidney: Abnormal LEFT kidney. There is delayed excretion from the LEFT kidney. There is a solid enhancing mass in the central renal pelvis with mild enhancement. Mass measures 5.4 x 5.5 x 6.3 cm and extends into the renal pelvis and proximal ureter. The remaining ureter is negative. The renal vein appears to be patent although small caliber. Renal vein is being displaced slightly anterior by the renal mass. Small retroperitoneal lymph nodes. The largest lymph node 10 mm at the level of the renal vein. No ascites or additional adenopathy. No GI tract obstruction. Normal appendix. Moderate sigmoid diverticular burden. Pelvic CT: Nondistended bladder. Atrophic uterus. CT/CT chest abdpel w/*[id number] IMPRESSION: 1. Soft tissue mass in the anterior RIGHT chest wall encases the medial RIGHT clavicle. Mass measures 8.0 x 5.2 x 7.2 cm. Mass extends into the enlarged RIGH T pectoralis muscle and there is also osseous destruction of the medial clavicu lar head. Consistent with a metastatic site. 2. No mediastinal or hilar adenopathy. RIGHT upper lobe nodule described by re cent PET/CT is not evident. 3. Soft tissue mass centered in the LEFT renal pelvis with extension into the proximal ureter highly suspicious for uroepithelial neoplasm. Mass measures 5.4 x 5.5 x 6.3 cm and is causing delayed excretion from the kidney. Recommend jimbo luation by urology. 4. Round mildly enhancing indeterminate but suspicious retroperitoneal lymph n ode at the level of the LEFT renal vein. 5. Reidentified is a LEFT breast mass measuring 7 mm which has been previously described. Positive on PET/CT imaging. 6. RIGHT thyroid nodule 2.9 x 4.4 cm. 7. Heterogeneous gallbladder, most likely cholelithiasis. If gallbladder ultra sound has not recently been performed ultrasound would be able to confirm milagros lithiasis.
[2024-08-29] MEDS: iohexol 350 mg/mL 500 mL Btl (per mL) PO (12:23)
[2024-08-29] MEDS: iohexol 350 mg/mL 500 mL Btl (per mL) IV (12:23)
--- NOTE | 2024-09-01 11:45 | USR_ITS ---
PROCEDURE INFORMATION: Exam: US Soft Tissue Head and Neck, Thyroid Exam date and time: 09/01/2024 12:00 PM Age: 79 years old Clinical indication: Condition or disease; Thyroid disorder; Other: Nodule; Additional info: Thyroid nodule TECHNIQUE: Imaging protocol: Real-time ultrasound scan of the neck with image documentation. Exam focused on the thyroid. COMPARISON: No relevant prior studies available. FINDINGS: Right thyroid lobe: Heterogeneous thyroid echotexture. The right thyroid lobe measures 4.6 x 4.3 x 5.8 cm 55.4 mL) hypoechoic to nearly anechoic structure along the inferior pole of the right thyroid measures 1.2 x 1.8 x 0.9 cm. Left thyroid lobe: Mildly heterogeneous thyroid echotexture. The left thyroid lobe measures 1.3 x 2.1 x 5.0 cm (6.4 mL). Isthmus: No nodules. Mildly thickened. Lymph nodes: Along the left cervical chain, there is an enlarged lymph node measuring 1.6 x 1.4 x 1.4 cm. Few additional prominent adjacent left cervical lymph nodes are noted. Soft tissues: Heterogeneous mass in the region of the right clavicle measures 4.3 x 2.3 x 5.2 cm. US/US thyroid [id number] IMPRESSION: 1. Enlarged, heterogeneous appearance of the right thyroid lobe with a hypoechoic to nearly anechoic 1.8 cm nodule along the inferior pole of the right thyroid, possibly a TR 4 nodule. Recommend ultrasound-guided FNA for further evaluation. 2. Heterogeneous right supraclavicular mass is concerning for malignancy, particularly with a history of non-small cell lung cancer. Recommend CT neck with contrast and/or tissue sampling further evaluation. 3. Left cervical lymphadenopathy concerning for metastasis.
[2024-09-05 14:04] LABS: Basophils # 0.1 10^3/uL (0.0-0.1); Basophils % 1.2 %; Eosinophils # 0.2 10^3/uL (0.0-0.8); Eosinophils % 2.2 %; Hematocrit 29.5 % (36-47); Lymphocytes # 1.1 10^3/uL (0.8-4.8); Lymphocytes % 12.3 %; Mean Corpuscular HGB Conc 31.9 g/dL (30-55); Mean Corpuscular Hemoglobin 28.1 pg (27-33); Mean Corpuscular Volume 88.1 fl (85-98); Mean Platelet Volume 10.3 fL (7.4-10.4); Monocytes # 0.7 10^3/uL (0.2-0.9); Monocytes % 8.3 %; Neutrophils # 6.44 10^3/uL (1.8-7.7); Neutrophils % 75.3 %; Nucleated Red Blood Cells % 0 %; Platelet Count 309 10^3/cmm (157-399); Red Blood Count 3.35 10^6/uL (3.85-5.65); Red Cell Distribution Width 15.9 % (12.1-15.1); White Blood Count 8.55 10^3/uL (3.29-11.43)
[2024-09-05 14:25] LABS: Alanine Aminotransferase 9 U/L (0-33); Albumin Level 3.1 g/dL (3.5-5.2); Alkaline Phosphatase 113 U/L (35-105); Anion Gap 15.9 (5-19); Aspartate Amino Transferase 18 U/L (0-32); Blood Urea Nitrogen 27 mg/dL (8-23); Carbon Dioxide 24 mmol/L (22-29); Chloride 106 mmol/L (98-107); Creatinine Clr Calc Pharmacy 37.1402; Globulin 2.4 g/dL (1.3-4.6); Glucose 175 mg/dL (65-115); Lactate Dehydrogenase 232 U/L (135-214); Osmolality Calculated 303 mOsm/kg (285-295); Potassium 3.9 mmol/L (3.5-5.1); Sodium 142 mmol/L (136-145); Total Bilirubin 0.4 mg/dL (0.15-1.2); Total Protein 5.5 g/dL (6.6-8.7)
--- NOTE | 2024-09-05 14:40 | ONCRAD EPV_ITS ---
Radiation Oncology Established Patient Visit Patient: Anselmo Koch [id number] : 1945 Age: 79 Sex: Female Dictated by: Dr. Bernadette Guzman Date of Service: 09/05/2024 Referring Physician(s) : Diagnosis: C79.51 - Secondary malignant neoplasm of bone, Diagnosed 07/04/2024 (Active) Patient returns 1 month after completing palliative radiation to the clavicular mass. She apparently had been having increasing pain through her shoulder area. This was last week. Since then she has not had any additional shoulder pain. Her son says that she would not have pain when she tried to raise her arm. She now just complains of being fatigued for initially a week, then since her radiation, then about a year. She is also been to the emergency room with blood in her urine and most recent he has has begun to develop blood in her stools. 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 Radiotherapy to Date: Course: R clavicle, Treatment Site: RT [id number], Ref. ID: [id number], Energy: 15X/6X, Dose/Fx (cGy): 300, #Fx: , Dose Correction (cGy): 0, Total Dose Delivered (cGy): 3,000, Start Date: 07/07/2024, End Date: 08/02/2024, Elapsed Days: 26 Current History: Current Medications: Allergies: Current Complaints / Review of Systems: . Vital Signs: Performed on 09/05/2024 2:00 PM BMI - 23.404 kg/m2 (high), Height - 66 in, Weight - 145 lbs, Temperature - 96.8 f, Pulse - 84 /min, Respiration - 16 /min, O2 Sat - 95 % (low), Pain - 0, Fatigue - 0 and BP - 109/ 57 mm(hg)(/low). Physical Exam: General: Alert and oriented x 3. No acute distress. HEENT: Normocephalic atraumatic. Pupils are equal, extraocular muscles intact, sclera clear. Examination of the clavicular mass reveals the mass to be substantially decreased in size. The overlying skin is healed nicely. There is no erythema or mass appreciated.. Performance Status: 80 Lab: None pending. Pathology: Primary, c79.51 - secondary malignant neoplasm of bone, Diagnosed 07/04/2024 (active) . Imaging: See HPI Impression: Bony metastasis Plan: At this point she has recovered nicely from her treatments. Her skin is healed up nicely. We talked about how her pain has gotten a lot better over the last couple days. She has just started on a new regiment with medical oncology. I recommended at this point that we hold off for another month or 2 to give the radiation a full 3 months to take effect. If she still having pain in that shoulder region at that point we can do additional treatment. She was in agreement with this and she will visit with medical oncology next. Signed by: 09/05/2024 2:39:07 PM <<Signature on File>> Time spent with patient: CPT Code: * CPT Code: *
[2024-09-12 09:59] LABS: Basophils # 0.1 10^3/uL (0.0-0.1); Basophils % 1.3 %; Eosinophils # 0.2 10^3/uL (0.0-0.8); Eosinophils % 2.8 %; Lymphocytes % 13.5 %; Mean Corpuscular Hemoglobin 27.5 pg (27-33); Mean Platelet Volume 10.3 fL (7.4-10.4); Monocytes # 0.7 10^3/uL (0.2-0.9); Monocytes % 9.2 %; Neutrophils # 5.49 10^3/uL (1.8-7.7); Nucleated Red Blood Cells % 0 %; Platelet Count 317 10^3/cmm (157-399); Red Blood Count 2.36 10^6/uL (3.85-5.65); Red Cell Distribution Width 17.3 % (12.1-15.1); White Blood Count 7.62 10^3/uL (3.29-11.43)
[2024-09-12 10:29] LABS: Alanine Aminotransferase 12 U/L (0-33); Alkaline Phosphatase 142 U/L (35-105); Anion Gap 14.3 (5-19); Aspartate Amino Transferase 16 U/L (0-32); Blood Urea Nitrogen 24 mg/dL (8-23); Calcium 7.6 mg/dL (8.5-10.5); Carbon Dioxide 23 mmol/L (22-29); Chloride 111 mmol/L (98-107); Creatine Phosphokinase 49 U/L (26-192); Creatinine Clr Calc Pharmacy 44.8295; Glucose 166 mg/dL (65-115); Osmolality Calculated 308 mOsm/kg (285-295); Potassium 3.3 mmol/L (3.5-5.1); Sodium 145 mmol/L (136-145); Total Bilirubin 0.7 mg/dL (0.15-1.2)
--- NOTE | 2024-09-12 12:54 | PC.NURSE ---
Patient is scheduled to come in on for 2 units of blood. Patient and son live in [facility]. Spoke to Dr. Vernon and he was ok with her going to [facility] to get the blood transfusion. Called the patient and spoke to the son Willem and let him know. Orders faxed to [facility] and Yari spoke to Hermila who is in the outpatient transfusion services to make sure she got the orders. This nurse called the son back and let him know that the orders have been sent and to call the main number at [facility] and talk to Hermila regarding making an appt for the blood transfusion. The son acknowledged understanding and had no other questions.
[2024-09-19 11:14] LABS: Basophils # 0.1 10^3/uL (0.0-0.1); Basophils % 1.7 %; Eosinophils # 0.1 10^3/uL (0.0-0.8); Eosinophils % 2.4 %; Hematocrit 32.2 % (36-47); Lymphocytes # 0.6 10^3/uL (0.8-4.8); Lymphocytes % 12.6 %; Mean Corpuscular HGB Conc 32.3 g/dL (30-55); Mean Corpuscular Hemoglobin 28.1 pg (27-33); Mean Platelet Volume 9.9 fL (7.4-10.4); Monocytes # 0.4 10^3/uL (0.2-0.9); Monocytes % 7.6 %; Neutrophils # 3.46 10^3/uL (1.8-7.7); Nucleated Red Blood Cells % 0 %; Platelet Count 283 10^3/cmm (157-399); White Blood Count 4.61 10^3/uL (3.29-11.43)
[2024-09-19 11:23] LABS: Alanine Aminotransferase 15 U/L (0-33); Albumin Level 2.9 g/dL (3.5-5.2); Alkaline Phosphatase 161 U/L (35-105); Anion Gap 10.2 (5-19); Aspartate Amino Transferase 25 U/L (0-32); Blood Urea Nitrogen 12 mg/dL (8-23); Calcium 7.7 mg/dL (8.5-10.5); Carbon Dioxide 25 mmol/L (22-29); Chloride 109 mmol/L (98-107); Creatinine Clr Calc Pharmacy 44.8295; Globulin 2.1 g/dL (1.3-4.6); Glucose 118 mg/dL (65-115); Osmolality Calculated 293 mOsm/kg (285-295); Potassium 3.2 mmol/L (3.5-5.1); Sodium 141 mmol/L (136-145); Total Bilirubin 1.2 mg/dL (0.15-1.2)
== END 2024-09-22 23:59 | disposition home or self-care (01) ==
PROVIDERS: Internal Medicine; Internal Medicine Medical Oncology; PCP Family Medicine; Visit Provider Nurse Practitioner Family
DX: Z53.9 Procedure and treatment not carried out, unspecified reason; C34.90 Malignant neoplasm of unspecified part of unspecified bronchus or lung; N28.89 Other specified disorders of kidney and ureter; Z79.899 Other long term (current) drug therapy; C79.51 Secondary malignant neoplasm of bone
CPT/HCPCS: 36415; 71260; 74177; 76536; 80053; 82550; 83615; 85025; 86850; 86900; 86920; 99024; 99214; 99215

== ENCOUNTER 2024-09-25 16:51 | Emergency (ER) | payer MEDICARE, SELFPAY ==
[2024-09-25 17:07] VITALS: BP 106/41; PULSE 105; TEMP 36.7; O2SAT 99; BMI 23.8
--- NOTE | 2024-09-25 17:23 | ECG_ITS ---
[facility] Date: 2024-09[facility]25 Pat Name: Anselmo Koch Department: Room: Gender: Female Director Learning: : 1945 Requested By: Manuel Villegas Order Number: [id number] Savita MD: Flako Holman M.D. Measurements Intervals Tatum Rate: 101 P: 43 AK: 200 QRS: -2 QRSD: 77 T: 29 QT: 353 QTc: 459 Interpretive Statements SINUS TACHYCARDIA LOW QRS VOLTAGE IN PRECORDIAL LEADS [QRS DEFLECTION < 1.0 mV IN CHEST LEADS] ANTEROSEPTAL MYOCARDIAL INFARCTION , PROBABLY OLD [40+ ms Q WAVE IN V1-V4] INTERPRETATION BASED ON A DEFAULT AGE OF 40 YEARS Compared to ECG 07/28/2024 15:56:41 Sinus rhythm no longer present Myocardial infarct finding still present Electronically Signed On 09-30-2024 18:15:58 PHARMACEUTICAL SALESPERSON by Flako Holman M.D. [id number]
--- NOTE | 2024-09-25 17:23 | CTR_ITS ---
PROCEDURE INFORMATION: Exam: CT Head Without Contrast Exam date and time: 09/25/2024 8:26 PM Age: 79 years old Clinical indication: Other: Generl weakness; C/O worsening generalized weakness over the last few weeks. History of lung cancer with bone mets. TECHNIQUE: Imaging protocol: Computed tomography of the head without contrast. Radiation optimization: All CT scans at this facility use at least one of these dose optimization techniques: automated exposure control; mA and/or kV adjustment per patient size (includes targeted exams where dose is matched to clinical indication); or iterative reconstruction. COMPARISON: CT head wo con* [id number] 07/27/2024 9:59 AM RADIATION DOSE METRICS: Total DLP (mGy-cm): 1148.67 FINDINGS: Brain: There is diffuse cerebral atrophy and chronic microvascular white matter disease. There is a 4.4 x 2.6 cm arachnoid cyst anterior to the left temporal lobe in the middle cranial fossa. There is no significant mass effect or midline shift. There is no acute intracranial hemorrhage. Cerebral ventricles: There is mild ex vacuo dilation of the lateral ventricles. The basal cisterns are unremarkable. Pituitary gland and sella: Empty sella. Paranasal sinuses: There is mucosal thickening in bilateral sphenoid sinuses. There is near complete opacification of the right sphenoid sinus. There is bone sclerosis and thickening of the cardenas of the sphenoid sinuses. Visible portions of the maxillary and frontal sinuses are clear. Mastoid air cells: The mastoid air cells are clear. Bones: The skull is unremarkable. Soft tissues: The visible extracranial soft tissues are unremarkable. CT/CT head wo con* [id number] IMPRESSION: 1. No acute intracranial abnormality. 2. Chronic bilateral sphenoid sinusitis.
--- NOTE | 2024-09-25 17:23 | XRR_ITS ---
PROCEDURE INFORMATION: Exam: XR Chest Exam date and time: 09/25/2024 7:07 PM Age: 79 years old Clinical indication: Other: Weakness TECHNIQUE: Imaging protocol: Radiologic exam of the chest. Views: 1 view. COMPARISON: CT chest abdpel w/*[id number] 08/29/2024 12:09 PM FINDINGS: Lungs: There is mild fine reticular opacity in the lung bases bilaterally, corresponding to the findings on chest CT 08/29/2024. There is no consolidation. Pleural spaces: There is no pleural effusion or pneumothorax. Heart/Mediastinum: Cardiomediastinal contours are unremarkable. Bones/joints: Bones are unremarkable. XR/XR chest 1V portable [id number] IMPRESSION: 1. No acute findings. 2. Mild fine reticular opacity in the lung bases suggests mild fibrotic interstitial lung disease.
[2024-09-25 17:41] LABS: Basophils # 0.1 10^3/uL (0.0-0.1); Basophils % 1.4 %; Eosinophils # 0.1 10^3/uL (0.0-0.8); Hematocrit 23.4 % (36-47); Lymphocytes # 0.8 10^3/uL (0.8-4.8); Mean Corpuscular HGB Conc 32.1 g/dL (30-55); Mean Corpuscular Volume 90.3 fl (85-98); Mean Platelet Volume 10.6 fL (7.4-10.4); Monocytes # 0.6 10^3/uL (0.2-0.9); Monocytes % 10.4 %; Neutrophils # 4.22 10^3/uL (1.8-7.7); Neutrophils % 73.3 %; Nucleated Red Blood Cells % 0 %; Platelet Count 278 10^3/cmm (157-399); Red Blood Count 2.59 10^6/uL (3.85-5.65); Red Cell Distribution Width 19.3 % (12.1-15.1); White Blood Count 5.76 10^3/uL (3.29-11.43)
[2024-09-25 18:18] LABS: Alanine Aminotransferase 21 U/L (0-33); Albumin Level 2.8 g/dL (3.5-5.2); Alkaline Phosphatase 120 U/L (35-105); Anion Gap 16.8 (5-19); Aspartate Amino Transferase 38 U/L (0-32); Blood Urea Nitrogen 25 mg/dL (8-23); Calcium 7.9 mg/dL (8.5-10.5); Carbon Dioxide 21 mmol/L (22-29); Chloride 106 mmol/L (98-107); Creatinine Clr Calc Pharmacy 44.9603; Globulin 1.9 g/dL (1.3-4.6); Glucose 75 mg/dL (65-115); Magnesium 1.7 mg/dL (1.7-2.3); Osmolality Calculated 295 mOsm/kg (285-295); Sodium 141 mmol/L (136-145); Thyroid Stimulating Hormone 0.08 uIU/mL (0.27-4.20); Total Bilirubin 0.8 mg/dL (0.15-1.2); Total Protein 4.7 g/dL (6.6-8.7)
[2024-09-25 18:25] LABS: Potassium 2.8 mmol/L (3.5-5.1)
--- NOTE | 2024-09-25 21:18 | ED_ITS ---
HPI - Weakness 2 General: Chief complaint: Weakness Stated complaint: weakness Time Seen by Provider: 09/25/24 21:09 Source: patient and EMS Mode of arrival: EMS Limitations: no limitations History of Present Illness: 79-year-old female with history of lung cancer with mets to bone she states that she gets anemic and has been having weakness. States that over the last week she has been having a hard time walking due to feeling weak she believes she may have anemia again she has had to have transfusions in the past she denies any pain anywhere denies any back pain denies any recent illnesses denies any vomiting or diarrhea Associated symptoms: Denies chest pain, chills, dysuria, fever(s), headache(s), nausea or vomiting Review of Systems 2 Const: Reports: fatigue and malaise; Denies: fever(s), chills, body aches or change in appetite ENMT: Denies: throat pain or dental pain Card: Denies: chest pain Resp: Denies: dyspnea GI: Denies: abdominal pain, nausea, vomiting or diarrhea : Denies: dysuria Musc: Denies: neck pain or back pain Skin/Breast: Denies: rash Neuro: Reports: weakness in extremities; Denies: headache(s) PFSH ED 2 PFSH: Social History Smoking and tobacco/nicotine status: former use of tobacco/nicotine Physical Exam 2 Const: COMMON NORMALS: patient oriented x3 HENMT: COMMON NORMALS: normocephalic and atraumatic HEAD & SCALP: n ormocephalic and atraumatic Eye: COMMON NORMALS: Equal, round and reactive pupils present and EOMs intact bilaterally PUPIL: Yes Equal, round and reactive pupils present Neck/C-Spine: COMMON NORMALS: full ROM and supple Chest: COMMONS NORMALS: normal inspection of the chest and normal palpation of entire chest wall Resp: COMMON NORMALS: normal respiratory effort, No retractions, No use of accessory muscles and clear to auscultation bilaterally AUSCULTATION: clear to auscultation bilaterally Cardio: COMMON NORMALS: regular rate, regular rhythm and No murmurs present (Cardio) RATE: regular rate RHYTHM: regular rhythm GI: COMMON NORMALS: Normal to inspection, nondistended, normoactive bowel sounds present, Soft to palpation, non-tender and no masses PALPATION: Yes Soft to palpation Extremity: COMMON NORMALS: normal to inspection and full ROM Neuro: COMMON NORMALS: patient oriented x3, moves all extremities and no focal motor deficits Psych: COMMON NORMALS: mental status grossly normal, Normal thought process present and cooperative THOUGHT PROCESS: Normal thought process present Skin: COMMON NORMALS: no rashes or lesions noted and no wounds GENERAL SKIN EXAM: no rashes or lesions noted Course 2 Vital Signs: Vital signs: Vital Signs Temperature 98.0 F 09/25/24 17:07 Pulse Rate 97 09/25/24 21:38 Respiratory Rate 16 09/25/24 21:38 Blood Pressure 109/51 09/25/24 21:38 Pulse Oximetry 98 09/25/24 21:38 Oxygen Delivery Me thod Room Air 09/25/24 21:38 MDM - Weakness Medical Decision Making Patient presents here with weakness from halfway he has pneumonia along with a UTI he has been well-appearing here white counts normal blood pressures were normal we will start him on antibiotics at the halfway he is return if worsening. Medical Records I reviewed the patient's medical records. Lab Data I reviewed the patient's lab results. 09/25/24 16:10 09/25/24 16:10 Radiology Impressions Chest X-Ray 09/25/24 17:23 IMPRESSION: 1. No acute findings. 2. Mild fine reticular opacity in the lung bases suggests mild fibrotic interstitial lung disease. Head CT 09/25/24 17:23 IMPRESSION: 1. No acute intracranial abnormality. 2. Chronic bilateral sphenoid sinusitis. Laboratory Results WBC 5.76 10^3/uL (3.29-11.43) 09/25/24 16:10 RBC 2.59 10^6/uL (3.85-5.65) L 09/25/24 16:10 Hgb 7.50 g/dL (11.27-16.99) L 09/25/24 16:10 Hct 23.4 % (36-47) L 09/25/24 16:10 MCV 90.3 fl (85-98) 09/25/24 16:10 MCH 29.0 pg (27-33) 09/25/24 16:10 MCHC 32.1 g/dL (30-55) 09/25/24 16:10 RDW 19.3 % (12.1-15.1) H 09/25/24 16:10 Plt Count 278 10^3/cmm (157-399) 09/25/24 16:10 MPV 10.6 fL (7.4-10.4) H 09/25/24 16:10 Neut % (Auto) 73.3 % 09/25/24 16:10 Lymph % (Auto) 13.0 % 09/25/24 16:10 [place] % (Auto) 10.4 % 09/25/24 16:10 Eos % (Auto) 1.0 % 09/25/24 16:10 Baso % (Auto) 1.4 % 09/25/24 16:10 Neut # (Auto) 4.22 10^3/uL (1.8-7.7) 09/25/24 16:10 Lymph # (Auto) 0.8 10^3/uL (0.8-4.8) 09/25/24 16:10 [place] # (Auto) 0.6 10^3/uL (0.2-0.9) 09/25/24 16:10 Eos # (Auto) 0.1 10^3/uL (0.0-0.8) 09/25/24 16:10 Baso # (Auto) 0.1 10^3/uL (0.0-0.1) 09/25/24 16:10 Nucleated RBC % (auto) 0 % 09/25/24 16:10 Nucleated RBCs # 0.0 /100WBC 09/25/24 16:10 Sodium 141 mmol/L (136-145) 09/25/24 16:10 Potassium 2.8 mmol/L (3.5-5.1) L* 09/25/24 16:10 Chloride 106 mmol/L (98-107) 09/25/24 16:10 Carbon Dioxide 21 mmol/L (22-29) L 09/25/24 16:10 Anion Gap 16.8 (5-19) 09/25/24 16:10 BUN 25 mg/dL (8-23) H 09/25/24 16:10 Creatinine 1.0 mg/dL (0.5-0.9) H 09/25/24 16:10 GFR Calculation Not Reportable 09/25/24 16:10 Glucose 75 mg/dL (65-115) 09/25/24 16:10 Calculated Osmolality 295 mOsm/kg (285-295) 09/25/24 16:10 Calcium 7.9 mg/dL (8.5-10.5) L 09/25/24 16:10 Magnesium 1.7 mg/dL (1.7-2.3) 09/25/24 16:10 Total Bilirubin 0.8 mg/dL (0.15-1.2) 09/25/24 16:10 AST 38 U/L (0-32) H 09/25/24 16:10 ALT 21 U/L (0-33) 09/25/24 16:10 Alkaline Phosphatase 120 U/L (35-105) H 09/25/24 16:10 Total Protein 4.7 g/dL (6.6-8.7) L 09/25/24 16:10 Albumin 2.8 g/dL (3.5-5.2) L 09/25/24 16:10 Globulin 1.9 g/dL (1.3-4.6) 09/25/24 16:10 TSH 0.08 uIU/mL (0.27-4.20) L 09/25/24 16:10 Blood Type O Positive 09/25/24 20:01 Rho(D) Type Rh positive 09/25/24 20:01 Antibody Screen Negative 09/25/24 20:01 All radiology interpretation(s) finalized by discharge Discharge Plan Discharge Patient Disposition: Home Clinical Impression: Weakness, Anemia, Hypokalemia Condition: Stable Prescriptions: New potassium chloride 20 mEq packet 20 meq PO BID Qty: 10 0RF No Action hydroxyzine HCl 10 mg tablet 10 mg PO TID PRN (Reason: Anxiety) alectinib 150 mg capsule 600 mg PO BID Qty: 60 3RF Rx Instructions: must administer with a meal/food atorvastatin 40 mg tablet 80 mg PO BEDTIME Qty: 180 3RF clopidogrel 75 mg tablet 75 mg PO DAILY Qty: 90 3RF metoprolol succinate [Toprol XL] 25 mg tablet extended release 24 hr 25 mg PO DAILY Qty: 90 0RF potassium chloride 10 mEq capsule, extended release 10 meq PO DAILY PRN (Reason: hypokalemia) Qty: 90 0RF Rx Instructions: take 1 tablet the day you take torsemide torsemide 20 mg tablet 20 mg PO DAILY PRN (Reason: Edema) Qty: 90 3RF pantoprazole 40 mg tablet,delayed release (DR/EC) 40 mg PO DAILY Qty: 90 3RF lidocaine-prilocaine 2.5-2.5 % cream 1 applic topical .COMPLEX Qty: 30 2RF Rx Instructions: Apply quarter-size amount to port site 30 minutes prior to access; cover with cling wrap scopolamine base 1 mg over 3 days patch 3 day 1 patch transdermal Q72H Qty: 10 0RF fentanyl 25 mcg/hr patch 72 hour 1 patch transdermal Q72H 30 Days Qty: 10 0RF omeprazole 40 mg capsule,delayed release(DR/EC) 40 mg PO DAILY Qty: 30 0RF ferrous sulfate 325 mg (65 mg iron) tablet 325 mg PO BID Qty: 60 0RF megestrol 800 mg/20 mL (20 mL) suspension 800 mg PO DAILY Qty: 600 0RF Discharge Orders: Discharge ED (Routine); Ordered 09/25/24 Ordered By: Manuel Villegas Referrals: Shiva Lara [Primary Care Provider] - Discharge Diet: Advance as tolerated Discharge Activity: Resume usual activity Patient Instructions: Hypokalemia (ED), Weakness (ED), Anemia (ED) Print Language: Tajik Coding Level of Care Code ED [employer] Related Data Home Medications ?Medication ?Instructions ?Recorded ?Confirmed hydroxyzine HCl 10 mg tablet 10 mg PO TID PRN Anxiety 07/03/24 09/12/24 Previous Rx's ?Medication ?Instructions ?Recorded alectinib 150 mg capsule 600 mg (4 x 150 mg) PO BID # 60 caps 07/24/24 atorvastatin 40 mg tablet 80 mg (2 x 40 mg) PO BEDTIME #180 08/17/24 tabs clopidogrel 75 mg tablet 75 mg PO DAILY #90 tabs 07/27 10/17 metoprolol succinate 25 mg 25 mg PO DAILY #90 tabs tablet,extended release 24 hr (Toprol XL) potassium chloride 10 mEq 10 meq PO DAILY PRN hypokale jose 08/17/24 capsule,extended release #90 caps torsemide 20 mg tablet 20 mg PO DAILY PRN Edema #90 tabs 08/17/24 pantoprazole 40 mg tablet,delayed 40 mg PO DAILY #90 t abs 08/20/24 release lidocaine-prilocaine 2.5 %-2.5 % 1 applic topical .[employer] PLEX #30 grams 08/21/24 topical cream scopolamine base 1 mg over 3 days 1 patch transdermal Q72H #10 ea 08/31/24 transdermal patch fentanyl 25 mcg/hr transdermal 1 patch transdermal Q72 H 30 days 09/12/24 patch #10 ea ferrous sulfate 325 mg (65 mg 325 mg PO BID #60 tabs 0 09/12/24 iron) tablet omeprazole 40 mg capsule,delayed 40 mg PO DAILY #30 ca ps 09/12/24 release megestrol 800 mg/20 mL (20 mL) 800 mg (20 mL) PO DAILY #600 mL 09/25/24 oral suspension potassium chloride 20 mEq oral 20 meq PO BID #10 ea packet Allergies Allergy/AdvReac Type Severity Reaction Status Date / Time No Known Allergies Allergy Verified 09/25/24 17:09
[2024-09-25] MEDS: potassium chloride ER 20 mEq Tablet 40 MEQ PO (21:37)
[2024-09-25 21:38] VITALS: BP 109/51; PULSE 97; RESP 16; O2SAT 98
[2024-09-25 22:16] LABS: Magnesium 1.7 mg/dL (1.7-2.3)
[2024-09-25 22:52] VITALS: BP 119/53; PULSE 84; RESP 16; TEMP 36.6; O2SAT 97
[2024-09-25 22:57] VITALS: BP 119/53; PULSE 84; RESP 16; TEMP 36.6; O2SAT 97
[2024-09-25 23:10] VITALS: BP 101/48; PULSE 84; RESP 16; TEMP 36.7; O2SAT 98
[2024-09-25 23:25] VITALS: BP 107/59; PULSE 81; RESP 16; TEMP 36.7; O2SAT 99
[2024-09-26 00:25] VITALS: BP 107/38; PULSE 82; RESP 16; TEMP 36.7; O2SAT 98
[2024-09-26 00:59] VITALS: BP 96/38; PULSE 83; RESP 16; O2SAT 97
[2024-09-26] MEDS: sodium chloride 0.9% 100 mL Bag 50 ML IV (01:00)
== END 2024-09-26 01:24 | disposition home or self-care (01) ==
PROVIDERS: Emergency Provider Emergency Medicine; PCP Family Medicine
DX: R53.1 Weakness (principal); D64.9 Anemia, unspecified; E87.6 Hypokalemia; Z79.02 Long term (current) use of antithrombotics/antiplatelets; Z87.891 Personal history of nicotine dependence; Z85.118 Personal history of other malignant neoplasm of bronchus and lung
CPT/HCPCS: 36415; 36430; 70450; 71045; 80053; 83735; 84443; 85025; 86850; 86900; 86920; 93005; 99285; P9016

== ENCOUNTER → 2024-10-04 10:30 | Outpatient (BNVA) | payer MEDICARE, SELFPAY | PROVIDERS: PCP Family Medicine; Visit Provider Internal Medicine Medical Oncology | DX: D64.9 Anemia, unspecified (principal) | CPT/HCPCS: 80053; 85025 ==

== ENCOUNTER → 2024-10-09 13:06 | Outpatient (BNVA) | payer MEDICARE, SELFPAY | PROVIDERS: PCP Family Medicine; Visit Provider Student in an Organized Health Care Education/Training Program | DX: D64.9 Anemia, unspecified (principal); D50.9 Iron deficiency anemia, unspecified | CPT/HCPCS: 99204 ==

== ENCOUNTER 2024-10-17 14:30 | Oncology outpatient (recurring) (ONCR) | payer MEDICARE, SELFPAY ==
[2024-09-27 14:33] LABS: Basophils # 0.1 10^3/uL (0.0-0.1); Basophils % 1.8 %; Eosinophils # 0.1 10^3/uL (0.0-0.8); Eosinophils % 1.6 %; Hematocrit 29.6 % (36-47); Lymphocytes # 0.6 10^3/uL (0.8-4.8); Lymphocytes % 13.6 %; Mean Corpuscular HGB Conc 33.1 g/dL (30-55); Mean Corpuscular Volume 87.6 fl (85-98); Mean Platelet Volume 9.9 fL (7.4-10.4); Monocytes # 0.4 10^3/uL (0.2-0.9); Neutrophils # 3.24 10^3/uL (1.8-7.7); Neutrophils % 73.3 %; Nucleated Red Blood Cells % 0 %; Platelet Count 292 10^3/cmm (157-399); Red Blood Count 3.38 10^6/uL (3.85-5.65); Red Cell Distribution Width 18.5 % (12.1-15.1); White Blood Count 4.42 10^3/uL (3.29-11.43)
[2024-09-27 15:09] LABS: Ferritin 166 ng/mL (15-150); Iron 58 ug/dL (37-145); Percent Saturation 26.3 % (20-50); Thyroid Stimulating Hormone 0.17 uIU/mL (0.27-4.20); Total Iron Binding Capacity 220 mcg/dl; Unsaturated Iron Binding 162 ug/dL (112-347); Vitamin B12 523 pg/mL (232-1245)
[2024-09-27 15:17] LABS: Folate Level 4.9 ng/mL (4.8-37.3)
[2024-09-27] MEDS: famotidine 20 mg/2 mL INJ IVP (15:47)
[2024-09-27 15:49] LABS: Alanine Aminotransferase 30 U/L (0-33); Albumin Level 3.1 g/dL (3.5-5.2); Alkaline Phosphatase 129 U/L (35-105); Anion Gap 16.6 (5-19); Aspartate Amino Transferase 50 U/L (0-32); Blood Urea Nitrogen 15 mg/dL (8-23); Calcium 8.1 mg/dL (8.5-10.5); Carbon Dioxide 22 mmol/L (22-29); Chloride 111 mmol/L (98-107); Globulin 2.4 g/dL (1.3-4.6); Glucose 102 mg/dL (65-115); Osmolality Calculated 305 mOsm/kg (285-295); Sodium 147 mmol/L (136-145); Total Bilirubin 0.9 mg/dL (0.15-1.2); Total Protein 5.5 g/dL (6.6-8.7)
[2024-09-27] MEDS: dexamethasone 4 mg/mL INJ 5 mL 12 MG IV (15:49)
[2024-09-27 15:59] LABS: Potassium 2.6 mmol/L (3.5-5.1)
[2024-09-27] MEDS: sodium chlor 0.9% + KCl 20 mEq 20 MEQ/1,000 ML BAG 500 MEQ IV (16:07)
[2024-09-27 18:05] VITALS: BP 104/65; PULSE 80; O2SAT 95
[2024-09-28] MEDS: dexamethasone 4 mg/mL INJ 5 mL 12 MG IV (11:48)
[2024-09-28] MEDS: sodium chlor 0.9% + KCl 40 mEq 40 MEQ/1,000 ML BAG 250 MEQ IV (12:01)
[2024-09-28 12:22] LABS: Hematocrit 25.7 % (36-47); Lymphocytes # 0.3 10^3/uL (0.8-4.8); Lymphocytes % 6.9 %; Mean Corpuscular HGB Conc 33.1 g/dL (30-55); Mean Corpuscular Hemoglobin 29.7 pg (27-33); Mean Corpuscular Volume 89.9 fl (85-98); Mean Platelet Volume 10.1 fL (7.4-10.4); Monocytes # 0.4 10^3/uL (0.2-0.9); Monocytes % 10.4 %; Neutrophils # 3.23 10^3/uL (1.8-7.7); Neutrophils % 81.9 %; Nucleated Red Blood Cells % 0 %; Platelet Count 270 10^3/cmm (157-399); Red Blood Count 2.86 10^6/uL (3.85-5.65); Red Cell Distribution Width 18.4 % (12.1-15.1); White Blood Count 3.94 10^3/uL (3.29-11.43)
[2024-09-28 12:42] LABS: Alanine Aminotransferase 25 U/L (0-33); Albumin Level 2.8 g/dL (3.5-5.2); Alkaline Phosphatase 103 U/L (35-105); Anion Gap 12.4 (5-19); Aspartate Amino Transferase 31 U/L (0-32); Blood Urea Nitrogen 16 mg/dL (8-23); Calcium 7.5 mg/dL (8.5-10.5); Carbon Dioxide 23 mmol/L (22-29); Chloride 114 mmol/L (98-107); Globulin 1.7 g/dL (1.3-4.6); Glucose 135 mg/dL (65-115); Osmolality Calculated 305 mOsm/kg (285-295); Potassium 3.4 mmol/L (3.5-5.1); Sodium 146 mmol/L (136-145); Total Bilirubin 0.6 mg/dL (0.15-1.2); Total Protein 4.5 g/dL (6.6-8.7)
[2024-09-28 15:58] VITALS: BP 96/60; PULSE 80; TEMP 36
[2024-09-28] MEDS: sodium chloride 0.9% (100 ml) 100 ML 50 ML (16:12)
[2024-09-28 16:13] VITALS: BP 104/63; PULSE 64; TEMP 36.4; O2SAT 93
[2024-09-28 17:53] VITALS: BP 117/60; PULSE 81; RESP 18; TEMP 36.6; O2SAT 96
[2024-09-29] MEDS: sodium chloride 0.9% 250 ML 999 ML IV (08:17)
[2024-09-29] MEDS: sodium chlor 0.9% + KCl 20 mEq 20 MEQ/1,000 ML BAG 500 MEQ IV (08:28)
[2024-09-29] MEDS: famotidine 20 mg/2 mL INJ IVP (08:31)
[2024-09-29 08:47] VITALS: BP 120/62; PULSE 63; TEMP 36; O2SAT 96
[2024-09-29 09:05] VITALS: BP 136/81; PULSE 64; TEMP 36.1; O2SAT 100
[2024-09-29 09:20] VITALS: BP 138/78; PULSE 61; TEMP 36.6; O2SAT 100
[2024-09-29 11:12] VITALS: BP 150/80; PULSE 65; TEMP 36.5; O2SAT 97
[2024-10-17 14:51] LABS: Basophils # 0.1 10^3/uL (0.0-0.1); Basophils % 1.7 %; Eosinophils # 0.1 10^3/uL (0.0-0.8); Eosinophils % 1.3 %; Hematocrit 38.7 % (36-47); Lymphocytes # 0.8 10^3/uL (0.8-4.8); Mean Corpuscular HGB Conc 32.3 g/dL (30-55); Mean Corpuscular Hemoglobin 30.3 pg (27-33); Mean Corpuscular Volume 93.7 fl (85-98); Mean Platelet Volume 10.2 fL (7.4-10.4); Monocytes # 0.7 10^3/uL (0.2-0.9); Monocytes % 13.7 %; Neutrophils # 3.19 10^3/uL (1.8-7.7); Neutrophils % 66.9 %; Nucleated Red Blood Cells % 0 %; Platelet Count 302 10^3/cmm (157-399); Red Blood Count 4.13 10^6/uL (3.85-5.65); Red Cell Distribution Width 16.1 % (12.1-15.1); White Blood Count 4.76 10^3/uL (3.29-11.43)
[2024-10-17 15:11] LABS: Alanine Aminotransferase 11 U/L (0-33); Albumin Level 3.3 g/dL (3.5-5.2); Alkaline Phosphatase 111 U/L (35-105); Aspartate Amino Transferase 19 U/L (0-32); Blood Urea Nitrogen 13 mg/dL (8-23); Calcium 8.4 mg/dL (8.5-10.5); Carbon Dioxide 23 mmol/L (22-29); Chloride 107 mmol/L (98-107); Globulin 2.2 g/dL (1.3-4.6); Glucose 129 mg/dL (65-115); Osmolality Calculated 294 mOsm/kg (285-295); Sodium 141 mmol/L (136-145); Total Bilirubin 0.8 mg/dL (0.15-1.2); Total Protein 5.5 g/dL (6.6-8.7)
== END 2024-10-23 23:59 | disposition home or self-care (01) ==
PROVIDERS: Internal Medicine Medical Oncology; Nurse Practitioner; PCP Family Medicine; Visit Provider Nurse Practitioner Family
DX: Z53.9 Procedure and treatment not carried out, unspecified reason; C34.31 Malignant neoplasm of lower lobe, right bronchus or lung; C79.51 Secondary malignant neoplasm of bone; D64.9 Anemia, unspecified; D50.9 Iron deficiency anemia, unspecified; N63.20 Unspecified lump in the left breast, unspecified quadrant; E04.1 Nontoxic single thyroid nodule; N28.89 Other specified disorders of kidney and ureter; Z92.3 Personal history of irradiation; Z87.891 Personal history of nicotine dependence
CPT/HCPCS: 36415; 36430; 80053; 82607; 82728; 82746; 83540; 83550; 84443; 85025; 86850; 86900; 86920; 96365; 96366; 96374; 96375; 99214; 99215; J1100; J3480; J3490; J7050; J9999; P9016; P9040

== ENCOUNTER 2024-11-09 09:43 | Outpatient (CLI) | payer MEDICARE, SELFPAY ==
--- NOTE | 2024-11-09 09:30 | MR_ITS ---
WS: [id number] MRI HEAD WITH CONTRAST TECHNIQUE: Sagittal T1, T2 axial, T2 axial FLAIR, axial susceptibility weighted imaging, axial diffusion weighted images, and coronal T2 images were obtained. Pre and post-T1 axial and post T1 coronal images. ADC and FSPGR images. CLINICAL INFORMATION: Lung cancer metastatic to bone FINDINGS: No evidence of restricted diffusion. No abnormal gadolinium enhancement. Moderate small vessel changes. Moderate parenchymal volume loss. Tiny chronic lacunar infarcts in the cerebellum. Normal vascular flow voids at the skull base. LEFT middle cranial fossa arachnoid cyst measuring 3.1 x 2.8 cm. No he mosiderin on susceptibility weighted images. Normal optic chiasm and pituitary infundibulum. MR/MR head wo/w con [id number] IMPRESSION: 1. No evidence of enhancing intracranial metastatic disease. 2. No restricted diffusion to suggest acute ischemia.
== END 2024-11-09 09:44 | disposition home or self-care (01) ==
PROVIDERS: PCP Family Medicine; Visit Provider Radiology Radiation Oncology
DX: C34.90 Malignant neoplasm of unspecified part of unspecified bronchus or lung (principal); C79.51 Secondary malignant neoplasm of bone; R93.0 Abnormal findings on diagnostic imaging of skull and head, not elsewhere classified; G93.0 Cerebral cysts
CPT/HCPCS: 70553

== ENCOUNTER 2024-11-15 12:45 | Oncology outpatient (recurring) (ONCR) | payer MEDICARE, SELFPAY ==
--- NOTE | 2024-11-03 09:00 | PETR_ITS ---
PROCEDURE INFORMATION: Exam: PET/CT Skull Base to Mid-thigh Exam date and time: 11/03/2024 9:51 AM Age: 79 years old Clinical indication: Abnormal findings; Renal mass; Prior surgery; Surgery date: 6+ months; Surgery type: Throat LABS AND CLINICAL REPORTS: Glucose: 115 mg/dl Treatment strategy for malignancy (PET staging): Restaging (PS) TECHNIQUE: Imaging protocol: Following at least four-hour fasting and following the injection of radiopharmaceutical, low dose CT images were obtained. Then, PET images were obtained. Attenuation corrected images were constructed using the CT scan. Fused images of PET and CT were reviewed. The standardized uptake values (SUV) reported below are maximum values within a region of interest, expressed in gm/ml. Exam includes orbital meatal line to mid-thigh. SUV normalization method: BodyWeight Radiopharmaceutical: 11.4 mCi F-18 FDG (Fluorodeoxyglucose), IV. Time of imaging post radiopharmaceutical administration: 45 minutes Injection site: LEFT AC COMPARISON: 1. CT chest abdpel w/*[id number] 08/29/2024 12:09 PM 2. PT PET skull to thigh INIT [id number] 06/02/2024 1:37 PM FINDINGS: Brain: Visualized brain has normal physiologic uptake. Pharynx: No abnormal uptake. Larynx: No abnormal uptake. Thyroid: Heterogeneous right thyroid nodule is not hypermetabolic, and unchanged from prior. Lungs, pleura and trachea: Subcentimeter mildly FDG avid left upper lobe nodule with SUV max of 1.2 (image 82), indeterminate. Heart: Normal physiologic uptake. Mediastinal space: No abnormal uptake. Liver: No abnormal uptake. Gallbladder and biliary ducts: Cholelithiasis. Pancreas: No abnormal uptake. Spleen: No abnormal uptake. Adrenal glands: No abnormal uptake. Kidneys and ureters: Metabolic left renal mass with SUV max of 32. Stomach and bowel: No abnormal uptake. Vasculature: No abnormal uptake. Lymph nodes: Small hypermetabolic right supraclavicular lymph nodes. Hypermetabolic left supraclavicular lymph node conglomerate with SUV max of 30.5. FDG avid right hilar lymph nodes with SUV max of 7.4. Hypermetabolic retroperitoneal and retrocrural lymphadenopathy including reference 1.1 cm retrocrural lymph node (image 166) with SUV max of 44.2. Skeleton: Multifocal areas of hypermetabolism in the right clavicle corresponding with areas of fractures and sclerosis on CT. Soft tissues: Interval decreased size of hypermetabolic soft tissue mass encasing the medial clavicle with SUV max of 48.3. Hypermetabolic nodular soft tissue nodules in the right pectoralis muscle (series 202, image 238) with SUV max of 45.2. METRICS: Mediastinal blood pool: SUV max = 2.4 Liver uptake: SUV max = 2.7 PET/PET skull to thigh SUBS 30000 IMPRESSION: 1. Hypermetabolic left renal mass, concerning for metastatic disease. 2. Interval decreased size of hypermetabolic mass in the right chest wall encasing the clavicle and involving the pectoralis muscle. Additional areas of hypermetabolism involving the lateral right clavicle at sites of suspected pathologic fractures. 3. Hypermetabolic left greater than right supraclavicular lymphadenopathy as well as retroperitoneal and retrocrural lymphadenopathy. 4. Subcentimeter mildly FDG avid left upper lobe nodule is indeterminate but likely metastatic. 5. FDG avid right hilar lymph nodes are indeterminate but concerning for metastatic disease.
--- NOTE | 2024-11-06 10:33 | ONCRAD EPV_ITS ---
Radiation Oncology Established Patient Visit Patient: Zee Briones [id number] : 1945> Age: 79> Sex: Female> Dictated by: Parker Henderson Date of Service: 11/06/2024 Referring Physician(s) : Diagnosis: C79.51 - Secondary malignant neoplasm of bone, Diagnosed 07/04/2024 (Active) Radiotherapy to Date: Course: R clavicle, Treatment Site: RT [id number], Ref. ID: [id number], Energy: 15X/6X, Dose/Fx (cGy): 300, #Fx: , Dose Correction (cGy): 0, Total Dose Delivered (cGy): 3,000, Start Date: 07/07/2024, End Date: 08/02/2024, Elapsed Days: 26 Current History: This is a 79-year-old female with metastatic non-small cell lung cancer now with symptomatic right clavicular bone mets with PET positive fracture noted in the area. She had previously been treated with 3000 cGy in 10 fractions completing this on 08/02/2024. PET/CT of 11/03/2024 noted matted ball-like left renal mass (32). Small hypermetabolic right supraclavicular lymph nodes. Hyper but metabolic left supraclavicular lymph node (30.5). Right hilar lymph node (7.4). Hypermetabolic retroperitoneal and retrocrural lymph nodes including a 1.1 cm retrocrural lymph node (44.2). Right clavicular area of fracture and sclerosis on CT was noted. There was interval decrease in size of the soft tissue mass encasing the medial right clavicle (48.3). Hypermetabolic nodular soft tissue nodules in the right pectoralis muscle (45.2). Current Medications: alectinib 600 mg (4 x 150 mg) PO BID atorvastatin 80 mg (2 x 40 mg) PO BEDTIME clopidogrel 75 mg PO DAILY fentanyl 25 mcg/hr 1 patch transdermal Q72H 30 days ferrous sulfate 325 mg PO BID hydroxyzine HCl 10 mg PO TID PRN lidocaine-prilocaine 2.5-2.5 % Apply quarter-size amount to port site 30 minutes prior to access; cover with cling wrap megestrol 800 mg (20 mL) PO DAILY metoprolol succinate ER (Toprol XL) 25 mg PO DAILY omeprazole 40 mg PO DAILY pantoprazole 40 mg PO DAILY potassium chloride 20 mEq PO BID potassium chloride ER 10 mEq PO DAILY PRN scopolamine base 1 patch transdermal Q72H torsemide 20 mg PO DAILY PRN Allergies: No Known Allergies Current Complaints / Review of Systems: As noted above Vital Signs: Performed on 11/06/2024 9:48 AM BMI - 21.08 kg/m2, Height - 66 in, Weight - 130.6 lbs, Temperature - 97.1 f, Pulse - 106 /min (high), Respiration - 18 /min, O2 Sat - 100 %, Pain - 8, Fatigue - 0 and BP - 137/ 75 mm(hg). Physical Exam: General: Alert and oriented x 3. No acute distress. HEENT: Normocephalic, atraumatic. Extraocular Movements Intact: Pupils Equal, Round, Reactive to Light and Accommodation: Sclerae anicteric. Oral cavity is clear without lesions, masses or ulcers. NECK: Supple without supraclavicular or jugular lymphadenopathy. LUNGS: Clear to auscultation bilaterally without rales, rhonchi or wheeze. HEART: Regular rate and rhythm, normal S1 and S2 without murmur, gallop or rub. MUSCULOSKELETAL: No tenderness or percussion pain over the axial skeleton, scapulae or pelvis. ABDOMEN: Soft, nontender, nondistended without masses or organomegaly. Bowell sounds are present. EXTREMITIES: No peripheral edema is identified. Limited motor and sensory examination are grossly intact and symmetric bilaterally. NEUROLOGIC: Cranial nerves II ???XII are grossly intact. Normal sensation, strength 5/5 in all extremities, normal gait, no ataxia. Performance Status: 80 KPS Lab: None pending. Pathology: Primary, c79.51 - secondary malignant neoplasm of bone, Diagnosed 07/04/2024 (active) .NSCLC Imaging: As above Impression: Progressive NSCLC with progressive symptomatic right clavicular disease S/P XRT to the right clavicle ending 08/02/2024 PLAN: Discussed options with patient and son. Patient desires another course of XRT to RIGHT CLAVICULAR area Side effects to include further fracture were discussed, AND the patient wishes to proceed CT simulation when available Treat PET/CT fusion area to approximately 3000 cGy in 10 fractions. Signed by: 11/06/2024 10:32:59 AM <<Signature on File>> Time spent with patient: 35 MINUTES CPT Code: * CPT Code: *
[2024-11-08] MEDS: sodium chloride 0.9% 500 ML 999 ML IV (12:20)
[2024-11-08] MEDS: ondansetron hcl ODT 4 mg Tab 8 MG PO (12:27)
[2024-11-08 12:29] VITALS: RESP 18; O2SAT 94
[2024-11-08] MEDS: oxyCODONE 5 mg IR Tab/Cap 10 MG PO (12:29)
[2024-11-14] MEDS: ondansetron 2 mg/ML SDV 2 mL 8 MG IVP (12:58)
[2024-11-14] MEDS: ALPRAZolam 0.5 mg Tablet PO (12:59)
[2024-11-14] MEDS: sodium chloride 0.9% 1,000 ML 999 ML IV (12:59)
[2024-11-14 13:05] LABS: Basophils % 0.6 %; Eosinophils % 0.5 %; Hematocrit 27.8 % (36-47); Lymphocytes # 0.3 10^3/uL (0.8-4.8); Lymphocytes % 4.2 %; Mean Corpuscular HGB Conc 31.7 g/dL (30-55); Mean Corpuscular Hemoglobin 30.3 pg (27-33); Mean Corpuscular Volume 95.9 fl (85-98); Mean Platelet Volume 9.4 fL (7.4-10.4); Monocytes # 0.6 10^3/uL (0.2-0.9); Monocytes % 8.9 %; Neutrophils # 5.25 10^3/uL (1.8-7.7); Neutrophils % 85.2 %; Nucleated Red Blood Cells % 0 %; Platelet Count 327 10^3/cmm (157-399); White Blood Count 6.17 10^3/uL (3.29-11.43)
[2024-11-14 13:29] LABS: Alanine Aminotransferase < 5 U/L (0-33); Albumin Level 3.4 g/dL (3.5-5.2); Alkaline Phosphatase 92 U/L (35-105); Anion Gap 20.6 (5-19); Aspartate Amino Transferase 15 U/L (0-32); Blood Urea Nitrogen 19 mg/dL (8-23); Calcium 8.4 mg/dL (8.5-10.5); Carbon Dioxide 25 mmol/L (22-29); Chloride 103 mmol/L (98-107); Creatinine Clr Calc Pharmacy 35.6159; Globulin 2.1 g/dL (1.3-4.6); Glucose 80 mg/dL (65-115); Osmolality Calculated 301 mOsm/kg (285-295); Potassium 3.6 mmol/L (3.5-5.1); Sodium 145 mmol/L (136-145); Total Bilirubin 0.6 mg/dL (0.15-1.2); Total Protein 5.5 g/dL (6.6-8.7)
[2024-11-14 15:53] VITALS: BP 93/57; PULSE 75; RESP 17; TEMP 36.4; O2SAT 99
[2024-11-15 12:48] LABS: Hematocrit 27.3 % (36-47)
--- NOTE | 2024-11-15 14:24 | PC.NURSE ---
Before patient departed with son she used the restroom and called me in to look. The toilet was full of bright red blood with very little waste. Patient and son stated they were departing to leave for [place].
== END 2024-11-22 23:59 | disposition home or self-care (01) ==
PROVIDERS: Nurse Practitioner Family; PCP Family Medicine; Visit Provider Radiology Radiation Oncology
DX: Z51.0 Encounter for antineoplastic radiation therapy; C34.31 Malignant neoplasm of lower lobe, right bronchus or lung; C79.51 Secondary malignant neoplasm of bone; Z53.9 Procedure and treatment not carried out, unspecified reason
CPT/HCPCS: 70553; 77290; 77295; 77300; 77334; 77387; 77412; 77470; 78815; 80053; 85014; 85018; 85025; 86850; 86900; 96360; 96361; 96375; 99214; 99215; A9552; J2405; J7030; J7040; J9999; Q0162

== ENCOUNTER 2024-12-07 13:30 | Oncology outpatient (recurring) (ONCR) | payer MEDICARE, SELFPAY ==
[2024-11-28 15:48] LABS: Basophils # 0.1 10^3/uL (0.0-0.1); Basophils % 1.9 %; Eosinophils # 0.1 10^3/uL (0.0-0.8); Eosinophils % 2.4 %; Hematocrit 34.9 % (36-47); Lymphocytes # 0.3 10^3/uL (0.8-4.8); Lymphocytes % 5.8 %; Mean Corpuscular HGB Conc 31.2 g/dL (30-55); Mean Corpuscular Hemoglobin 29.5 pg (27-33); Mean Corpuscular Volume 94.3 fl (85-98); Mean Platelet Volume 9.3 fL (7.4-10.4); Monocytes # 0.7 10^3/uL (0.2-0.9); Monocytes % 11.9 %; Neutrophils # 4.48 10^3/uL (1.8-7.7); Neutrophils % 76.3 %; Nucleated Red Blood Cells % 0 %; Platelet Count 390 10^3/cmm (157-399); Red Cell Distribution Width 14.5 % (12.1-15.1); White Blood Count 5.87 10^3/uL (3.29-11.43)
[2024-11-28 16:10] LABS: Alanine Aminotransferase 6 U/L (0-33); Albumin Level 2.7 g/dL (3.5-5.2); Alkaline Phosphatase 75 U/L (35-105); Anion Gap 20.8 (5-19); Aspartate Amino Transferase 11 U/L (0-32); Blood Urea Nitrogen 15 mg/dL (8-23); Calcium 8.4 mg/dL (8.5-10.5); Carbon Dioxide 21 mmol/L (22-29); Chloride 105 mmol/L (98-107); Creatinine Clr Calc Pharmacy 42.2163; Globulin 2.8 g/dL (1.3-4.6); Glucose 76 mg/dL (65-115); Osmolality Calculated 296 mOsm/kg (285-295); Potassium 3.8 mmol/L (3.5-5.1); Sodium 143 mmol/L (136-145); Total Bilirubin 0.5 mg/dL (0.15-1.2); Total Protein 5.5 g/dL (6.6-8.7)
[2024-12-06 14:02] LABS: Basophils % 0.4 %; Eosinophils # 0.2 10^3/uL (0.0-0.8); Eosinophils % 2.2 %; Hematocrit 32.5 % (36-47); Lymphocytes # 1.2 10^3/uL (0.8-4.8); Lymphocytes % 10.8 %; Mean Corpuscular HGB Conc 31.4 g/dL (30-55); Mean Corpuscular Hemoglobin 28.7 pg (27-33); Mean Corpuscular Volume 91.5 fl (85-98); Mean Platelet Volume 10.3 fL (7.4-10.4); Monocytes # 1.5 10^3/uL (0.2-0.9); Monocytes % 13.9 %; Neutrophils # 7.44 10^3/uL (1.8-7.7); Neutrophils % 67.5 %; Nucleated Red Blood Cells % 0 %; Platelet Count 639 10^3/cmm (157-399); Red Blood Count 3.55 10^6/uL (3.85-5.65); Red Cell Distribution Width 14.7 % (12.1-15.1); White Blood Count 11.01 10^3/uL (3.29-11.43)
[2024-12-06 14:24] LABS: Alanine Aminotransferase 19 U/L (0-33); Albumin Level 2.9 g/dL (3.5-5.2); Alkaline Phosphatase 107 U/L (35-105); Anion Gap 16.8 (5-19); Aspartate Amino Transferase 47 U/L (0-32); Blood Urea Nitrogen 15 mg/dL (8-23); Calcium 8.1 mg/dL (8.5-10.5); Carbon Dioxide 24 mmol/L (22-29); Chloride 104 mmol/L (98-107); Creatinine Clr Calc Pharmacy 34.8535; Globulin 2.6 g/dL (1.3-4.6); Glucose 133 mg/dL (65-115); Osmolality Calculated 297 mOsm/kg (285-295); Sodium 142 mmol/L (136-145); Total Bilirubin 0.3 mg/dL (0.15-1.2); Total Protein 5.5 g/dL (6.6-8.7)
[2024-12-06 14:50] LABS: Potassium 2.8 mmol/L (3.5-5.1)
[2024-12-06] MEDS: famotidine 20 mg/2 mL INJ 40 MG IVP (14:53)
[2024-12-06] MEDS: sodium chloride 0.9% 1,000 ML 999 ML IV (14:56)
[2024-12-06] MEDS: dexamethasone 4 mg/mL INJ 5 mL 12 MG IV (15:01)
[2024-12-06] MEDS: ondansetron 2 mg/ML SDV 2 mL 8 MG IVP (15:02)
[2024-12-06] MEDS: sodium chlor 0.9% + KCl 20 mEq 20 MEQ/1,000 ML BAG 500 MEQ IV (15:18)
[2024-12-06 15:31] LABS: Slide Review Slide Review Perform
[2024-12-07 14:31] LABS: Anion Gap 15.4 (5-19); Blood Urea Nitrogen 14 mg/dL (8-23); Carbon Dioxide 24 mmol/L (22-29); Chloride 108 mmol/L (98-107); Creatinine Clr Calc Pharmacy 32.1725; Glucose 111 mg/dL (65-115); Osmolality Calculated 299 mOsm/kg (285-295); Potassium 3.4 mmol/L (3.5-5.1); Sodium 144 mmol/L (136-145)
== END 2024-12-23 23:59 | disposition home or self-care (01) ==
PROVIDERS: Internal Medicine Medical Oncology; PCP Family Medicine; Visit Provider Nurse Practitioner
DX: Z53.9 Procedure and treatment not carried out, unspecified reason; C80.1 Malignant (primary) neoplasm, unspecified
CPT/HCPCS: 36415; 80048; 80053; 85025; 96365; 96366; 96375; 99214; 99215; J1100; J2405; J3480; J3490; J7030

== ENCOUNTER 2025-01-16 12:30 | Oncology outpatient (recurring) (ONCR) | payer MEDICARE, SELFPAY ==
--- NOTE | 2025-01-04 14:33 | ONCRAD EPV_ITS ---
Radiation Oncology Established Patient Visit Patient: Anselmo Koch [id number] : 1945 Age: 79 Sex: Female Dictated by: Dr. 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 ID: [id number], Energy: 15X/6X, Dose/Fx (cGy): 300, #Fx: 10 / 10, Dose Correction (cGy): 0, Total Dose Delivered (cGy): 3,000, Start Date: 07/07/2024, End Date: 08/02/2024, Elapsed Days: 26 Course: RT CLAV RE-TX, Treatment Site: RT [id number], Ref. ID: [id number], Energy: 15X/6X, Dose/Fx (cGy): 300, #Fx: 6 / 6, Dose Correction (cGy): 0, Total Dose Delivered (cGy): 1,800, Start Date: 11/08/2024, End Date: 11/15/2024, Elapsed Days: 7 Current History: Metastatic st IV renal cell carcinoma. She had gross hematuria necessitating multiple transfusions in the past. We referred her to [facility] for urgent embolization to reverse hematuria associated with her unresected primary disease. Embolization did occur and hematuria cleared. She overall feels much better. N and v are absent. Pain under better control with fentanyl patch and OC for breakthrough pain. She continues to have right clavicular pain 7 on 10 scale and following a popping sensation in her left flank, persistent left flank pain. Current Medications: atorvastatin 80 mg (2 x 40 mg) PO BEDTIME clopidogrel 75 mg PO DAILY fentanyl 25 mcg/hr 1 patch transdermal Q72H 30 days ferrous sulfate 325 mg PO BID hydroxyzine HCl 10 mg PO TID PRN lidocaine-prilocaine 2.5-2.5 % Apply quarter-size amount to port site 30 minutes prior to access; cover with cling wrap lorlatinib 100 mg PO DAILY megestrol 800 mg (20 mL) PO DAILY metoprolol succinate ER (Toprol XL) 25 mg PO DAILY omeprazole 40 mg PO DAILY ondansetron 8 mg PO DAILY oxycodone 10 mg PO TID PRN pantoprazole 40 mg PO DAILY potassium chloride 20 mEq PO BID potassium chloride ER 10 mEq PO DAILY PRN prochlorperazine maleate (Compazine) 10 mg PO Q8H PRN prochlorperazine maleate (Compazine) 10 mg PO Q8H PRN scopolamine base 1 patch transdermal Q72H tamsulosin 0.4 mg PO DAILY torsemide 20 mg PO DAILY PRN Allergies: No Known Allergies Current Complaints / Review of Systems: . Vital Signs: Performed on 01/04/2025 1:19 PM BMI - 17.948 kg/m2 (low), Height - 66 in, Weight - 111.2 lbs, Temperature - 96.9 f, Pulse - 120 /min (high), Respiration - 18 /min, O2 Sat - 98 %, Pain - 2, Fatigue - 0 and BP - 102/ 70 mm(hg). Physical Exam: General: Alert and oriented x 3. No acute distress. Right clavicular mass non tender. No palpable left flank tenderness. Performance Status: ECOG 1 - 2 Lab: None pending. Pathology: Primary, c79.51 - secondary malignant neoplasm of bone, Diagnosed 07/04/2024 (active) . Impression: Metastatic renal cell carcinoma to right clavicle. Will complete her treatment to this site today 8 Gy in 1 fraction. Renew fentanyl patch at current strength. Obtain CTof abdomen and pelvis to assess primary disease status and surrounding structures to evaluate for source of flank pain. Signed by: 01/04/2025 2:32:53 PM <<Signature on File>> Time spent with patient: CPT Code: CPT Code:
[2025-01-04 14:44] VITALS: RESP 16; O2SAT 96
[2025-01-04] MEDS: morphine 4 mg/mL SDV 1 mL 2 MG SUBCUT (14:44)
--- NOTE | 2025-01-05 11:42 | N.ONRD TS_ITS ---
Radiation Oncology Treatment Summary Patient: Zee>Isak MR#: [id number] : 1945> Age: 79> Sex: Female Dictated by: Dr. Remigio Terry Date of Service: 01/04/2025 Referring Physician(s) : Diagnosis: C79.51 - Secondary malignant neoplasm of bone, Diagnosed 07/04/2024 (Active) Radiotherapy to Date: Course: R clavicle, Treatment Site: RT [id number], Ref. ID: [id number], Energy: 15X/6X, Dose/Fx (cGy): 300, #Fx: 10 / 10, Dose Correction (cGy): 0, Total Dose Delivered (cGy): 3,000, Start Date: 07/07/2024, End Date: 08/02/2024, Elapsed Days: 26 Course: RT CLAV RE-TX, Treatment Site: RT [id number], Ref. ID: [id number], Energy: 15X/6X, Dose/Fx (cGy): 300, #Fx: / 6, Dose Correction (cGy): 0, Total Dose Delivered (cGy): 1,800, Start Date: 11/08/2024, End Date: 11/15/2024, Elapsed Days: 7 Course: RT CLAV RE-TX, Treatment Site: R CLAVrevised, Ref. ID: [id number], Energy: 15X/6X, Dose/Fx (cGy): 800, #Fx: / , Dose Correction (cGy): 0, Total Dose Delivered (cGy): 800, Start Date: 01/04/2025, End Date: 01/04/2025, Elapsed Days: 0 Clinical Summary: The patient tolerated RT well. Plan: End of treatment today. Return to hospice care. We will review abd pelvic CT scan which will be done following treatment. Signed by: Dr. Remigio Terry>01/05/2025 11:41:24 AM <<Signature on File>>
[2025-01-15 16:02] LABS: Basophils # 0.1 10^3/uL (0.0-0.1); Basophils % 1.5 %; Eosinophils # 0.2 10^3/uL (0.0-0.8); Eosinophils % 2.5 %; Lymphocytes # 0.5 10^3/uL (0.8-4.8); Lymphocytes % 7.4 %; Mean Corpuscular HGB Conc 31.4 g/dL (30-55); Mean Corpuscular Hemoglobin 27.6 pg (27-33); Mean Platelet Volume 9.9 fL (7.4-10.4); Monocytes % 13.5 %; Neutrophils # 5.38 10^3/uL (1.8-7.7); Neutrophils % 74.5 %; Nucleated Red Blood Cells % 0 %; Platelet Count 321 10^3/cmm (157-399); Red Blood Count 4.09 10^6/uL (3.85-5.65); Red Cell Distribution Width 14.9 % (12.1-15.1); White Blood Count 7.21 10^3/uL (3.29-11.43)
[2025-01-15] MEDS: HYDROcodone-acetaminophen 5-325 mg Tablet 1 TAB PO (16:33)
[2025-01-15 17:03] LABS: Alanine Aminotransferase < 5 U/L (0-33); Alkaline Phosphatase 90 U/L (35-105); Anion Gap 22.5 (5-19); Aspartate Amino Transferase 12 U/L (0-32); Blood Urea Nitrogen 15 mg/dL (8-23); Calcium 8.5 mg/dL (8.5-10.5); Carbon Dioxide 22 mmol/L (22-29); Chloride 102 mmol/L (98-107); Globulin 2.8 g/dL (1.3-4.6); Glucose 91 mg/dL (65-115); Osmolality Calculated 296 mOsm/kg (285-295); Potassium 3.5 mmol/L (3.5-5.1); Sodium 143 mmol/L (136-145); Total Bilirubin 0.5 mg/dL (0.15-1.2); Total Protein 5.8 g/dL (6.6-8.7)
--- NOTE | 2025-01-16 12:30 | CT_ITS ---
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 TECHNIQUE: Imaging performed of the abdomen and pelvis with IV contrast. Single phase imaging of the abdomen. Coronal and sagittal reformats are submitted. All CT scans at [facility] use at least one of these dose optimization techniques: automated exposure control; mA and/or kV adjustment per patient size (includes targeted exams where dose is matched to clinical indication); or iterative reconstruction. IV CONTRAST: Omnipaque 350; 100 mL IV. Oral contrast: No DLP: 488.16 mGy.cm COMPARISON: 11/24/2024, 11/15/2024 Lower thorax: Chronic emphysematous changes at the lung bases. Small layering LEFT pleural effusion. 11 mm pleural nodule posterior mid RIGHT lower thorax, associated with the RIGHT ninth rib. Heart is normal size. Small hiatal hernia. Liver/biliary system: Multiple cysts. Normal size liver. No intrahepatic duct dilatation. Gallbladder: Normally distended gallbladder with variable attenuation centrally. No adjacent inflammation. Pancreas: Normal size pancreas and pancreatic duct. No adjacent inflammation. Spleen: Slightly lobulated spleen with granulomata. Adrenal glands: Normal. Right kidney: Numerous low-attenuation masses. Some of these low-attenuation masses are too small to characterize. Others are cysts. The largest cortical mass measuring 1.7 cm with increased Hounsfield unit numbers suggesting a complex cyst. Similar to 08/29/2024 nonobstructing central renal calcifications. Ureter is normal. Left kidney: Abnormal LEFT kidney. LEFT kidney is enlarged with loss of the normal morphology and corticomedullary junction. Cystic and solid components highly suspicious for an infiltrating neoplasm mass extending lateral from the upper pole of the LEFT kidney into the perinephric fat consistent with additional metastatic deposits. Metastatic deposit measures 1.2 cm between the upper pole the LEFT kidney and spleen. New since the prior study. Additional contiguous soft tissue extending from the medial kidney towards the retroperitoneum and encasing the LEFT renal artery and vein. Small caliber LEFT renal artery. Numerous metastatic foci along the medial LEFT kidney into the retroperitoneum. Tumor extension into the proximal ureter abnormal enhancement in the proximal ureter. LEFT renal vein tumor thrombus. Calcification lower pole LEFT kidney. Aorta: Mild atherosclerosis with no aneurysm. Lymphadenopathy: Retroperitoneal lymphadenopathy closely associated with the abnormal LEFT kidney. Numerous lymph nodes in the LEFT retroperitoneal space closely associated with the renal artery and vein. Lymph nodes extend anterior to the aorta. Smaller lymph nodes RIGHT retroperitoneum. Largest lymph node or cluster of lymph nodes measures 2.7 x 2.5 cm at the level of the LEFT renal vein. There are additional lymph nodes extending inferiorly. Free fluid: None. GI tract: Nondistended stomach. No small bowel obstruction. No colon obstruction. Sigmoid diverticulosis without acute diverticulitis. Abdominal wall: Mild soft tissue anasarca. Enhancing soft tissue nodule 1.8 cm posterior to the LEFT ilium. Pelvis: No free fluid or adenopathy within the pelvis. Urinary bladder is not distended. Bones: Bones are osteopenic. No destructive lesions identified. Advanced facet joint arthritis RIGHT L5-S1. CT/CT abdomen pelvis w con* [id number] IMPRESSION: 1. Progressive neoplastic changes involving the entire LEFT kidney. There is t umor enhancement within the LEFT kidney. Complete loss of normal renal morpholo gy. 2. LEFT perinephric and retroperitoneal progression of lymphadenopathy and mes enteric deposits. 3. Tumor extension along the LEFT ureter and LEFT renal vein and partial obscu ration and narrowing of the LEFT renal artery. 4. Subcutaneous deposit posterior LEFT ilium is a new metastatic site. 5. New RIGHT posterior pleural-based nodule. 6. By history prior embolization of the LEFT kidney. There is no active arteri al bleeding but there is enhancement of the abnormal renal parenchyma and the a djacent lymph nodes.
[2025-01-16] MEDS: iohexol 350 mg/mL 500 mL Btl (per mL) IV (12:50)
--- NOTE | 2025-01-16 14:36 | ONCRAD EPV_ITS ---
Radiation Oncology Established Patient Visit Patient: Zee Briones [id number] : 1945 Age: 79 Sex: Female Dictated by: Parker Henderson Date of Service: 01/15/2025 Referring Physician(s) : Diagnosis: C79.51 - Secondary malignant neoplasm of bone, Diagnosed 07/04/2024 (Active), Unknown Primary, Hematuria londstanding but after renal embolization it stopped for 2 months, reappeared one week ago, poor appeptite lost 20# over last 2 months Radiotherapy to Date: Course: R clavicle, Treatment Site: RT [id number], Ref. ID: [id number], Energy: 15X/6X, Dose/Fx (cGy): 300, #Fx: , Dose Correction (cGy): 0, Total Dose Delivered (cGy): 3,000, Start Date: 07/07/2024, End Date: 08/02/2024, Elapsed Days: 26 Course: RT CLAV RE-TX, Treatment Site: RT [id number], Ref. ID: [id number], Energy: 15X/6X, Dose/Fx (cGy): 300, #Fx: / 6, Dose Correction (cGy): 0, Total Dose Delivered (cGy): 1,800, Start Date: 11/08/2024, End Date: 11/15/2024, Elapsed Days: 7 Course: RT CLAV RE-TX, Treatment Site: R CLAVrevised, Ref. ID: [id number], Energy: 15X/6X, Dose/Fx (cGy): 800, #Fx: , Dose Correction (cGy): 0, Total Dose Delivered (cGy): 800, Start Date: 01/04/2025, End Date: 01/04/2025, Elapsed Days: 0 Current History: As Above. Current Medications: atorvastatin 80 mg (2 x 40 mg) PO BEDTIME clopidogrel 75 mg PO DAILY fentanyl 25 mcg/hr 1 patch transdermal Q72H 30 days ferrous sulfate 325 mg PO BID hydroxyzine HCl 10 mg PO TID PRN lidocaine-prilocaine 2.5-2.5 % Apply quarter-size amount to port site 30 minutes prior to access; cover with cling wrap lorlatinib 100 mg PO DAILY megestrol 800 mg (20 mL) PO DAILY metoprolol succinate ER (Toprol XL) 25 mg PO DAILY omeprazole 40 mg PO DAILY ondansetron 8 mg PO DAILY oxycodone 10 mg PO TID PRN pantoprazole 40 mg PO DAILY potassium chloride 20 mEq PO BID potassium chloride ER 10 mEq PO DAILY PRN prochlorperazine maleate (Compazine) 10 mg PO Q8H PRN prochlorperazine maleate (Compazine) 10 mg PO Q8H PRN scopolamine base 1 patch transdermal Q72H tamsulosin 0.4 mg PO DAILY torsemide 20 mg PO DAILY PRN Allergies: No Known Allergies Current Complaints / Review of Systems: . This is a 79-year-old female who comes for unscheduled appointment today. Son requested to be evaluated for bleeding. He states he had put it in the portal but we have not any access to those portal requests. Dr. Terry request a CT of the abdomen and pelvis and but family wanted it with [facility] and they have not called him for his CT. Family requesting labs as well as CT today. Patient has a very strong rapid, pulse today and may suggestive of volume depletion. Poor skin turgor. Patient states she has not noted any clots but bright red blood over the last week. It had been absent since embolization 2 months ago. Vital Signs: Performed on 01/15/2025 2:39 PM BMI - 18.013 kg/m2 (low), Height - 66 in, Weight - 111.6 lbs, Temperature - 97 f, Pulse - 147 /min (high), Respiration - 17 /min, O2 Sat - 97 %, Pain - 0, Fatigue - 0 and BP - 101/ 70 mm(hg). Physical Exam: General: Alert and oriented x 3. No acute distress. HEENT: Normocephalic, atraumatic. Extraocular Movements Intact: Pupils Equal, Round, Reactive to Light and Accommodation: Sclerae anicteric. Oral cavity is clear without lesions, masses or ulcers. NECK: Supple without supraclavicular or jugular lymphadenopathy. LUNGS: Clear to auscultation bilaterally without rales, rhonchi or wheeze. HEART: Regular rate and rhythm, normal S1 and S2 without murmur, gallop or rub. MUSCULOSKELETAL: No tenderness or percussion pain over the axial skeleton, scapulae or pelvis. ABDOMEN: Soft, nontender, nondistended without masses or organomegaly. Bowell sounds are present. EXTREMITIES: No peripheral edema is identified. Limited motor and sensory examination are grossly intact and symmetric bilaterally. NEUROLOGIC: Cranial nerves II ???XII are grossly intact. Normal sensation, strength 5/5 in all extremities, normal gait, no ataxia. Performance Status: KPS 70 Lab: pending. UA-gross hematuria noted and verified. CBC 7.21/4.09/11.30/36/405995 CMP 09/08., Pr 5.8L, ALB 3.0L Pathology: Primary, c79.51 - secondary malignant neoplasm of bone, Diagnosed 07/04/2024 (active) . Imaging: Pending CT A/P stat Impression: Gross hematuria Refer to MO Signed by: 01/16/2025 2:34:26 PM <<Signature on File>> Time spent with patient: CPT Code: CPT Code:
== END 2025-01-22 23:59 | disposition home or self-care (01) ==
LOC: ONCMED 14:56
PROVIDERS: PCP Family Medicine; Visit Provider Radiology Radiation Oncology
DX: Z53.9 Procedure and treatment not carried out, unspecified reason; C34.31 Malignant neoplasm of lower lobe, right bronchus or lung; C79.51 Secondary malignant neoplasm of bone; N28.89 Other specified disorders of kidney and ureter; R31.9 Hematuria, unspecified; C64.2 Malignant neoplasm of left kidney, except renal pelvis
CPT/HCPCS: 74177; 77336; 77387; 77412; 80053; 85025; 96372; 99024; J2270; J9999

== ENCOUNTER 2025-02-08 06:00 | Oncology outpatient (recurring) (ONCR) | payer MEDICARE, SELFPAY ==
[2025-01-23 14:00] LABS: Hematocrit 39.6 % (36-47); Hemoglobin 12.70 g/dL (11.27-16.99); Mean Corpuscular HGB Conc 32.1 g/dL (30-55); Mean Corpuscular Hemoglobin 28.5 pg (27-33); Mean Corpuscular Volume 88.8 fl (85-98); Nucleated Red Blood Cells % 0 %; Platelet Count 367 10^3/cmm (157-399); Red Blood Count 4.46 10^6/uL (3.85-5.65); White Blood Count 9.71 10^3/uL (3.29-11.43)
[2025-01-23 14:33] LABS: Alanine Aminotransferase < 5 U/L (0-33); Albumin Level 3.0 g/dL (3.5-5.2); Alkaline Phosphatase 93 U/L (35-105); Anion Gap 19.4 (5-19); Aspartate Amino Transferase 14 U/L (0-32); Blood Urea Nitrogen 15 mg/dL (8-23); Calcium 8.2 mg/dL (8.5-10.5); Carbon Dioxide 22 mmol/L (22-29); Chloride 103 mmol/L (98-107); Creatinine Clr Calc Pharmacy 33.4382; Ferritin 281 ng/mL (15-150); Globulin 2.7 g/dL (1.3-4.6); Glucose 136 mg/dL (65-115); Iron 22 ug/dL (37-145); Osmolality Calculated 295 mOsm/kg (285-295); Potassium 3.4 mmol/L (3.5-5.1); Sodium 141 mmol/L (136-145); Thyroid Stimulating Hormone 1.30 uIU/mL (0.27-4.20); Total Iron Binding Capacity 144 mcg/dl; Total Protein 5.7 g/dL (6.6-8.7); Unsaturated Iron Binding 122 ug/dL (112-347)
[2025-02-01 12:58] LABS: Hematocrit 37.0 % (36-47); Hemoglobin 11.60 g/dL (11.27-16.99); Mean Corpuscular HGB Conc 31.4 g/dL (30-55); Mean Corpuscular Hemoglobin 27.7 pg (27-33); Mean Corpuscular Volume 88.3 fl (85-98); Nucleated Red Blood Cells % 0 %; Platelet Count 314 10^3/cmm (157-399); Red Blood Count 4.19 10^6/uL (3.85-5.65); White Blood Count 9.65 10^3/uL (3.29-11.43)
[2025-02-01 13:17] LABS: Alanine Aminotransferase < 5 U/L (0-33); Albumin Level 2.8 g/dL (3.5-5.2); Alkaline Phosphatase 92 U/L (35-105); Anion Gap 17.7 (5-19); Aspartate Amino Transferase 15 U/L (0-32); Blood Urea Nitrogen 15 mg/dL (8-23); Calcium 8.3 mg/dL (8.5-10.5); Carbon Dioxide 25 mmol/L (22-29); Chloride 102 mmol/L (98-107); Creatinine Clr Calc Pharmacy 33.4382; Globulin 3.0 g/dL (1.3-4.6); Glucose 162 mg/dL (65-115); Osmolality Calculated 296 mOsm/kg (285-295); Potassium 3.7 mmol/L (3.5-5.1); Sodium 141 mmol/L (136-145); Total Protein 5.8 g/dL (6.6-8.7)
--- NOTE | 2025-02-01 15:28 | ONCRAD EPV_ITS ---
Radiation Oncology Established Patient Visit Patient: Anselmo Koch [id number] : 1945 Age: 79 Sex: Female Dictated by: Dr. Remigio Terry Date of Service: 02/01/2025 Referring Physician(s) : Diagnosis: C79.51 - Secondary malignant neoplasm of bone, Diagnosed 07/04/2024 (Active) Radiotherapy to Date: Course: R clavicle, Treatment Site: RT [id number], Ref. ID: [id number], Energy: 15X/6X, Dose/Fx (cGy): 300, #Fx: , Dose Correction (cGy): 0, Total Dose Delivered (cGy): 3,000, Start Date: 07/07/2024, End Date: 08/02/2024, Elapsed Days: 26 Course: RT CLAV RE-TX, Treatment Site: RT [id number], Ref. ID: [id number], Energy: 15X/6X, Dose/Fx (cGy): 300, #Fx: , Dose Correction (cGy): 0, Total Dose Delivered (cGy): 1,800, Start Date: 11/08/2024, End Date: 11/15/2024, Elapsed Days: 7 Course: RT CLAV RE-TX, Treatment Site: R CLAVrevised, Ref. ID: [id number], Energy: 15X/6X, Dose/Fx (cGy): 800, #Fx: , Dose Correction (cGy): 0, Total Dose Delivered (cGy): 800, Start Date: 01/04/2025, End Date: 01/04/2025, Elapsed Days: 0 Current History: Current Medications: atorvastatin 80 mg (2 x 40 mg) PO BEDTIME clopidogrel 75 mg PO DAILY fentanyl 25 mcg/hr 1 patch transdermal Q72H 30 days ferrous sulfate 325 mg PO BID hydroxyzine HCl 10 mg PO TID PRN lidocaine-prilocaine 2.5-2.5 % Apply quarter-size amount to port site 30 minutes prior to access; cover with cling wrap lorlatinib 100 mg PO DAILY megestrol 800 mg (20 mL) PO DAILY metoprolol succinate ER (Toprol XL) 25 mg PO DAILY omeprazole 40 mg PO DAILY ondansetron 8 mg PO DAILY oxycodone 10 mg PO TID PRN pantoprazole 40 mg PO DAILY potassium chloride 20 mEq PO BID potassium chloride ER 10 mEq PO DAILY PRN prochlorperazine maleate (Compazine) 10 mg PO Q8H PRN prochlorperazine maleate (Compazine) 10 mg PO Q8H PRN scopolamine base 1 patch transdermal Q72H tamsulosin 0.4 mg PO DAILY torsemide 20 mg PO DAILY PRN Allergies: No Known Allergies Current Complaints / Review of Systems: .She notes progressive recurrent gross hematuria following embolization. She had clearance of hematuria x 2 months following embolization. Now having recurrence with clots and intermittent urinary obstruction. Fatigues. Loosing weight. No appetite Pain still in right clavicle and upper aback and shoulder. Vital Signs: Performed on 02/01/2025 1:29 PM BMI - 17.916 kg/m2 (low), Height - 66 in, Weight - 111 lbs, Temperature - 97.2 f, Pulse - 126 /min (high), Respiration - 18 /min, O2 Sat - 95 % (low), Pain - 9, Fatigue - 0 and BP - 94/ 69 mm(hg). Physical Exam: General: Alert and oriented x 3. No acute distress. Obviously thinner. Conversant. No palpable tenderness over right clavicle or back. Performance Status: ECOG PS 2 ??? 3. Lab: Today Hb 11.6, WBC 9.65, plat 214,000. Chem ok Cr 1.2 Pathology: Primary, c79.51 - secondary malignant neoplasm of bone, Diagnosed 07/04/2024 (active) . Imaging: Progressive tumor in left kidney with progressive regional adenopathy. Impression: Local disease progression with recurrent hematuria following embolization. Hb surprising stable. Persistent osseous met pain despite previous palliative treatment. Will begin Remeron 15 mg for appetite. Consider palliative radiation to left kidney to reverse hematuria. Discussed with patient and son. Signed by: 02/01/2025 3:26:46 PM <<Signature on File>> Time spent with patient: CPT Code: CPT Code:
== END 2025-02-22 23:59 | disposition home or self-care (01) ==
PROVIDERS: Internal Medicine Medical Oncology; Nurse Practitioner; PCP Family Medicine; Visit Provider Radiology Radiation Oncology
DX: Z53.9 Procedure and treatment not carried out, unspecified reason (principal)
CPT/HCPCS: 36415; 77300; 77301; 77332; 77338; 77386; 80053; 82728; 83540; 83550; 83615; 84443; 85025; 99024; 99214